=== PATIENT | male | born 1960 | race Caucasian/White ===

== ENCOUNTER → 2017-02-17 | Outpatient (CLI) | payer SELFPAY | PROVIDERS: Visit Provider Nurse Practitioner Family | DX: R53.83 Other fatigue (principal); N52.9 Male erectile dysfunction, unspecified; E55.9 Vitamin D deficiency, unspecified; Z12.5 Encounter for screening for malignant neoplasm of prostate | CPT/HCPCS: 80053; 80061; 82306; 83036; 84439; 84443; 85025; G0103 ==

== ENCOUNTER → 2017-07-22 14:35 | Outpatient (REF) | payer SELFPAY ==
[2017-07-22 20:07] LABS: Alanine Aminotransferase 35 U/L (12-78); Albumin Level 4.2 gm/dL (3.4-5.0); Albumin/Globulin Ratio 1.2 (1.1-1.8); Alkaline Phosphatase 99 U/L (46-116); Anion Gap 14.7 mEq/L (5-15); Aspartate Amino Transferase 22 U/L (15-37); Bilirubin,Total 0.6 mg/dL (0.2-1.0); Blood Urea Nitrogen 12 mg/dL (7-18); Carbon Dioxide 29 mmol/L (21.0-32.0); Chloride 106 mmol/L (98-107); Chol/HDL Ratio 5.6 (1-3.5); Cholesterol 225 mg/dL (140-200); Creatinine,Serum 1.04 mg/dL (0.70-1.30); Estimated Glomerular Filt Rate 73 ml/min (>60); GFR (African American) 88 ML/MIN (>60); Globulin 3.4 gm/dl (1.3-3.2); Glucose 86 mg/dL (74-106); HDL Cholesterol 40 mg/dL (27-67); LDL Cholesterol 160 mg/dL (0-130); Potassium 4.7 mmoL/L (3.5-5.1); Sodium 145 mmol/L (136-145); Total Protein,Serum 7.6 gm/dL (6.4-8.2); Triglycerides 127 mg/dL (30-200); VLDL Cholesterol 25 mg/dL (0-40)
[2017-07-25 12:49] LABS: Vitamin D 25 Hydroxy 26.5 ng/mL (30.0-100.0)
== END ==
LOC: LAB 14:35
PROVIDERS: Visit Provider Nurse Practitioner Family
DX: R53.83 Other fatigue (principal)
CPT/HCPCS: 80053; 80061; 82652

== ENCOUNTER → 2019-10-19 17:38 | Outpatient (CLI) | payer MEDICAID, SELFPAY ==
[2019-10-19 18:02] LABS: Basophils % 0.4 % (0.1-2.0); Eosinophils # 0.3 K/mm3 (0.0-0.4); Eosinophils % 3.3 % (0.1-12.0); Hemoglobin 16.1 g/dL (14.1-18.0); Lymphocytes # 1.8 K/mm3 (0.7-4.5); Lymphocytes % 22.2 % (10-50); Mean Corpuscular HGB Conc 34.2 g/dL (31.8-35.4); Mean Corpuscular Hemoglobin 32.6 pg (27.0-31.2); Mean Corpuscular Volume 95.3 fl (80-94); Monocytes # 0.5 K/mm3 (0.1-1.0); Monocytes % 6.3 % (1.7-9.3); Neutrophils # 5.3 K/mm3 (1.8-7.8); Neutrophils % 67.7 % (37.0-80.0); Platelet Count 283 K/mm3 (142-424); Red Blood Count 4.93 M/mm3 (4.60-6.20); White Blood Count 7.9 K/mm3 (4.8-10.8)
[2019-10-19 18:07] LABS: Chloride 104 mmol/L (98-107)
[2019-10-19 18:08] LABS: Potassium 4.5 mmoL/L (3.5-5.1); Sodium 141 mmol/L (136-145)
[2019-10-19 18:10] LABS: Alanine Aminotransferase 18 U/L (12-78); Albumin Level 4.4 g/dl (3.5-5.0); Albumin/Globulin Ratio 1.5 (1.1-1.8); Alkaline Phosphatase 89 U/L (38-126); Anion Gap 15.5 mEq/L (5-15); Aspartate Amino Transferase 26 U/L (17-59); Bilirubin,Total 0.6 mg/dl (0.2-1.3); Blood Urea Nitrogen 18 mg/dl (9-20); Carbon Dioxide 26 mmol/L (22.0-30.0); Cholesterol 227 mg/dl (140-200); Estimated Glomerular Filt Rate 76 ml/min (>60); GFR (African American) 92 ML/MIN (>60); Total Protein,Serum 7.4 g/dl (6.3-8.2); Triglycerides 120 mg/dl (30-150); VLDL Cholesterol 24 mg/dL (0-40)
[2019-10-19 18:11] LABS: Calcium 9.5 mg/dl (8.4-10.2); Glucose 93 mg/dl (74-100); HDL Cholesterol 45 mg/dl (40-60)
[2019-10-19 18:23] LABS: Direct LDL Cholesterol 163.17 mg/dL (100-129)
[2019-10-19 19:40] LABS: Prostate Specific Ag Screen 1.5 ng/ml (0.0-4.0)
== END ==
PROVIDERS: Visit Provider Family Medicine
DX: Z12.5 Encounter for screening for malignant neoplasm of prostate (principal); I10 Essential (primary) hypertension
CPT/HCPCS: 80053; 80061; 85025; G0103

== ENCOUNTER → 2019-10-22 10:12 | Outpatient (CLI) | payer MEDICAID, SELFPAY ==
--- NOTE | 2019-10-22 10:17 | XR_ITS ---
PROCEDURE: XR ELBOW RT MIN 3V CLINICAL INDICATION: fall Posttraumatic pain COMPARISON: No exams were available for comparison FINDINGS: No fracture or dislocation. No lytic or blastic change. There is normal mineralization. Bony hypertrophy is present at the medial epicondyle and at the medial aspect of the proximal ulna medial to the coracoid process. There is also mild bony hypertrophy of the radial head and at the olecranon process. Other findings:None. IMPRESSION: Degenerative changes with bony spurring otherwise negative Dictated by: Fausto Cui MD 10/22/2019 14:58 Electronically signed by Fausto Cui MD in [place] 10/22/2019 14:58
--- NOTE | 2019-10-22 10:17 | XR_ITS ---
PROCEDURE: XR HIP LT 2-3V W/PELVIS CLINICAL INDICATION: fall Posttraumatic pain COMPARISON: No exams were available for comparison FINDINGS: No fracture or dislocation. No lytic or blastic change. There is normal mineralization. There mild osteoarthritic changes of the hips Other findings:None. IMPRESSION: No acute findings. Dictated by: Fausto Cui MD 10/22/2019 14:59 Electronically signed by Fausto Cui MD in [place] 10/22/2019 14:59
--- NOTE | 2019-10-22 10:17 | XR_ITS ---
PROCEDURE: XR FOOT RT MIN 3V CLINICAL INDICATION: fall Pain COMPARISON: No exams were available for comparison FINDINGS: No fracture or dislocation. No lytic or blastic change. There is normal mineralization. The joint spaces are well-preserved. No significant degenerative/arthritic changes. No erosive changes evident. Other findings:None. IMPRESSION: No acute findings. Dictated by: Fausto Cui MD 10/22/2019 14:58 Electronically signed by Fausto Cui MD in [place] 10/22/2019 14:58
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
== END ==
PROVIDERS: PCP Family Medicine; Visit Provider Family Medicine
DX: M25.552 Pain in left hip (principal); M79.671 Pain in right foot; M25.521 Pain in right elbow; M25.571 Pain in right ankle and joints of right foot; W19.XXXA Unspecified fall, initial encounter
CPT/HCPCS: 73080; 73502; 73610; 73630

== ENCOUNTER → 2019-11-09 12:13 | Outpatient (CLI) | payer MEDICAID, SELFPAY ==
--- NOTE | 2019-11-09 12:17 | XR_ITS ---
PROCEDURE: XR ANKLE WT BEARING LT MIN 3V CLINICAL INDICATION: Ankle pain COMPARISON: CR XR ANKLE RT MIN 3V from 10/22/2019 FINDINGS: There is no significant soft tissue swelling. The medial and lateral malleolus appear intact. There is minimal spurring of the tip of the medial malleolus and there is adjacent spurring of the medial border of the talus resulting mild focal narrowing of the ankle mortise. The mortise otherwise is normal. There is a small spur of the calcaneus at the insertion of Achilles tendon and even smaller spur at the insertion of the plantar tendon. IMPRESSION: No acute findings. Dictated Dr. Francisco Taylor MD 11/09/2019 12:54 Dr. Francisco Malone MD in [place] 11/09/2019 12:54
== END ==
PROVIDERS: PCP Family Medicine; Visit Provider Nurse Practitioner Family
DX: M25.572 Pain in left ankle and joints of left foot (principal); W19.XXXA Unspecified fall, initial encounter
CPT/HCPCS: 73610

== ENCOUNTER 2019-11-22 11:41 | Day surgery (SDC) | payer MEDICAID, SELFPAY ==
[2019-11-22 11:55] VITALS: BMI 31.6
[2019-11-22 12:03] VITALS: BP 132/93; PULSE 91; RESP 18; TEMP 36.6; O2SAT 97; BMI 31.6
[2019-11-22 13:11] LABS: Coronavirus 19 IgG Antibody Negative (Negative); Coronavirus 19 IgM Antibody Negative (Negative)
[2019-11-22 13:23] VITALS: O2SAT 97
--- NOTE | 2019-11-22 13:30 | HMH.ANESCL ---
[facility] Anesthesia Checklist - Patient Identification Patient Identification: Arm Band - Structural Data Admitted From: Home Planned Operative Procedure/s: colonoscopy Consent for Planned Operative Procedure(s) Verified: Yes Verified Documents: Surgical Consent, History and Physical - NPO Status Verified Time NPO: 00:00 - Additional verifications Anesthesia Reactions: No - Airway Assessment C-Spine Mobility Assessed: Yes (mp2) TMJ Mobility Assessed: Yes Dentition: Poor Dentition - Neurological Assessment Level of Consciousness: Awake, Alert - Anesthesia Plan Anesthesia Risk discussed: Yes Anesthesia Plan: Verified ASA Class: II Anesthesia Type: MAC [facility] History I have reviewed the patient's past medical history: Yes Medical History: Reports:: Hyperlipidemia, Hypertension Denies:: Cancer, Diabetes Mellitus Type 1, Diabetes Mellitus Type 2, Internal Pacemaker, MRSA, Seizures *Have you ever received a pneumonia vaccine?: No *Have you received a flu vaccine this season?: No Other Medical History: Reports: Other Anesthesia experience/problems:: nac Laterality Cases: Left: Arthroscopy Knee Other Surgeries: Yes: Colonoscopy, Other. No: Pacemaker Amputation: No Fractures: No - *Social History Last grade of school completed: High school graduate Smoking Status: Former smoker Tobacco Type: cigarettes #Yrs smoked (if former smoker): 25 Alcohol Intake: never Alcohol Intake Frequency:: holidays/special occasions only Substance Use Type: marijuana *Occupational Status:: employed Housing: house Household Members: spouse *Travel in the last 8 weeks: None Family Hx:: Heart Attack
--- NOTE | 2019-11-22 13:48 | P.PCN_ITS ---
[facility] Procedure Note Procedure Note:: Colonoscopy Procedure Report: Colonoscopy with cold snare polypectomy and Endo Clip placement Endoscopist: Zac De La Cruz II, MD Referring physician: Saulo Dowling MD Date of Procedure: November 22, 2019 Equipment: Olympus 180 variable stiffness pediatric colonoscope Sedation: MAC sedation Indication: Mr. Rodriguez is a 59-year-old gentleman who is here for follow-up screening/surveillance colonoscopy. He does state that his last colonoscopy was approximately 6 years ago and he has had colon polyps removed previously. He does have occasional spotting of blood from internal hemorrhoids that may occur once monthly and is infrequent. He reports no abdominal pain, weight loss, change in his bowel habits or family history of colon cancer. Procedure: Prior to the procedure, a history and physical exam was performed, and patient's medications and allergies were reviewed. The risks, benefits and alternatives of the sedation and procedure were discussed with the patient. All questions were answered and informed consent was obtained. The patient was brought to the procedure room. Patient identification and proposed procedure were verified by the physician and the nurse. The patient was placed in a left lateral decubitus position and the scope was passed under direct vision. Throughout the procedure, the patient's blood pressure, pulse, and oxygen saturations were monitored continuously. The colonoscopy was accomplished without difficulty. The patient tolerated the procedure well. Findings: On digital rectal examination there was normal rectal tone. There were no external hemorrhoids. The colonoscope was introduced through the anal canal to the rectum and advanced to the cecum. The ileocecal valve and appendiceal orifice were identified. The scope was advanced a short distance into the ileum which appeared grossly normal. The scope was then withdrawn into the colon. The right colon was fairly poorly prepped but there was a larger 11?12 mm polyp in the cecum that was removed via cold snare polypectomy. There was some heme at the polypectomy site so a single Endo Clip was placed with excellent hemostasis. There was a diminutive 3 mm rectal polyp removed via cold snare polypectomy. There were scattered diverticuli throughout the colon but more predominantly in the descending and sigmoid colon (LEFT colon). The rectum itself was normal. Upon retroflexion within the rectum there were grade 2 internal hemorrhoids. The preparation was fair throughout with [place] Preparation Score of 6?7 out of 9. The cecal time was 12 minutes. Impression: 1. Cecal colon polyp (11-12 mm) 2. Diminutive rectal polyp 3. Pandiverticulosis 4. Grade 2 internal hemorrhoids Plan: I will follow-up the polyp histology. Based upon the size of this adenomatous polyp and the preparation, I would recommend repeat screening/surveillance colonoscopy again in 2 years. I would encourage bulk fiber supplementation on a long-term daily maintenance basis.
[2019-11-22 13:50] VITALS: BP 94/62; PULSE 85; RESP 18; TEMP 36.6; O2SAT 94
[2019-11-22 14:00] VITALS: BP 80/58; PULSE 76; RESP 18; O2SAT 95
[2019-11-22 14:10] VITALS: BP 108/55; PULSE 77; RESP 18; O2SAT 94
[2019-11-22 14:36] VITALS: BP 129/81; PULSE 79; RESP 18; O2SAT 99
== END 2019-11-22 14:36 | disposition home or self-care (01) ==
PROVIDERS: Visit Provider Internal Medicine Gastroenterology
PROC: 0DJD8ZZ Inspection of Lower Intestinal Tract, Via Natural or Artificial Opening Endoscopic (ICD-10-PCS; CPT 45378; principal; 2019-11-22 13:00)
DX: Z12.11 Encounter for screening for malignant neoplasm of colon (principal); K63.5 Polyp of colon; K62.1 Rectal polyp; K57.30 Diverticulosis of large intestine without perforation or abscess without bleeding; K64.1 Second degree hemorrhoids; I10 Essential (primary) hypertension; E78.5 Hyperlipidemia, unspecified; F12.90 Cannabis use, unspecified, uncomplicated; Z87.39 Personal history of other diseases of the musculoskeletal system and connective tissue; Z87.891 Personal history of nicotine dependence; Z79.899 Other long term (current) drug therapy
CPT/HCPCS: 45385; 86328

== ENCOUNTER → 2019-12-03 08:03 | Outpatient (CLI) | payer MEDICAID, SELFPAY ==
--- NOTE | 2019-12-03 08:13 | MR_ITS ---
PROCEDURE: MR ANKLE RT WO/W CON CLINICAL INDICATION: ankle pain twisted ankle and fx [id number] ago. entire ankle pain and pain around calcaneous. 22ml prohance given. 17ml lot:[id number] exp: mar 2022 5ml lot:[id number] exp: mar 2021 prior x-ray 10-22-19 bun:15 cre:1.10 gfr:68 COMPARISON: CR XR ANKLE RT MIN 3V from 10/22/2019 MR MR ANKLE LT WO/W CON from 12/03/2019 TECHNIQUE: Routine multiplanar multi echo sequences are performed without with gadolinium enhancement. FINDINGS: There is an area of decreased T1 and increased T2 signal involving the distal aspect of the tibia laterally and anteriorly at the articular surface. This region measures approximately 13 mm and is in the subarticular region of the distal tibia. The there is also increased T2 signal involving the posterior aspect of the calcaneus. The tibial fibular syndesmosis as well as the anterior posterior tibiofibular ligaments appear intact. The PT FL appears intact. The ATFL is discontinuous with increased T2 signal at the ATFL consistent with tear of the ATFL. Fibers of the deltoid ligament are sparse and could be related to partial tear or sprain. The Achilles tendon is intact. No tendinous abnormalities are evident. There is some increase in T2 signal along the neck of the talus medially with some soft tissue thickening at this region.. There is some mild soft tissue swelling with edema noted along the anterior and posterior aspect of the ankle joint and at the posterior talocalcaneal region. There is some subchondral increase in T2 signal along the posterior aspect of the talus. Previous radiograph suggested a avulsion fracture of the fibula and medial malleolar region. These are not well demonstrated on the MRI. There is increased T2 signal involving the posterior aspect of the calcaneus superiorly and at the Achilles/calcaneal junction. IMPRESSION: 1. Findings compatible with tear of the ATFL. 2. Sparsely of the fibers of the deltoid ligament with increased T2 signal suggesting partial tear or sprain. 3. Focus of abnormal bone marrow signal intensity of the anterior aspect of the tibia laterally which may be related to an area of osteochondrosis. Follow-up may confirm stability. 4. Increased T2 signal in the posterior aspect of the calcaneus and at the Achilles insertion suggesting underlying bone marrow edema. Possible insertional tendinitis 5. Increased T2 signal of the neck of the talus medially and along the posterior aspect of the talus with soft tissue thickening at this area which may be inflammatory or posttraumatic.. There is a small effusion at the talonavicular joint. Dictated by: Fausto Cui MD 12/09/2019 09:07 Fausto Cui MD in [place] 12/09/2019 09:07
--- NOTE | 2019-12-03 08:13 | MR_ITS ---
PROCEDURE: MR ANKLE LT WO/W CON CLINICAL INDICATION: ankle pain, ATFL sprain ankle pain in joint x2wks. twisted ankle. medial sided ankle pain. prior x-ray 11-09-19 COMPARISON: CR XR ANKLE WT BEARING LT MIN 3V from 11/09/2019 TECHNIQUE: Routine multiplanar multi echo sequences are performed without and with gadolinium enhancement. FINDINGS: The distal tibiofibular syndesmosis is intact. The anterior and posterior tibiofibular ligaments appear intact. The PT FL has an unremarkable appearance. The ATFL is thickened and discontinuous with increased T2 signal consistent with tear of the ATFL. Soft tissue swelling is present about the ankle joint with increase in T2 signal. The deltoid ligament appears intact. The ligaments and tendons about the ankle joint appear intact. There is increased T2 signal of the posterior aspect of the calcaneus and at the Achilles insertion. May be seen with tendinitis/enthesophytis. Increased T2 signal is present at the medial malleolar region. There is a small ankle joint effusion with fluid present both anterior and posterior at the ankle joint. There is also a small amount fluid in the subtalar region centrally and anteriorly. IMPRESSION: 1. Findings compatible with tear of the ATFL. 2. Ankle joint effusion with soft tissue swelling about the ankle. 3. Possible Achilles tendinitis/enthesophytis. Dictated by: Fausto Cui MD 12/09/2019 09:24 Fausto Cui MD in [place] 12/09/2019 09:24
[2019-12-03 08:26] LABS: Blood Urea Nitrogen 15 mg/dl (9-20); Estimated Glomerular Filt Rate 68 ml/min (>60); GFR (African American) 82 ML/MIN (>60)
--- NOTE | 2019-12-03 08:42 | XR_ITS ---
PROCEDURE: XR ORBIT BILATERAL MIN 4V CLINICAL INDICATION: RULE OUT METAL FOREIGN BODY FOR MRI COMPARISON: No exams were available for comparison TECHNIQUE: AP views are obtained of the orbits with the patient looking up and down. FINDINGS: No radio opaque foreign bodies evident. IMPRESSION: No radio opaque orbital foreign body identified. Dictated by: Fausto Cui MD 12/03/2019 14:55 Fausto Cui MD in [place] 12/03/2019 14:55
== END ==
PROVIDERS: Visit Provider Podiatrist
DX: M25.571 Pain in right ankle and joints of right foot (principal); S82.831A Other fracture of upper and lower end of right fibula, initial encounter for closed fracture; S93.401A Sprain of unspecified ligament of right ankle, initial encounter; S99.911A Unspecified injury of right ankle, initial encounter; M25.572 Pain in left ankle and joints of left foot; S93.402A Sprain of unspecified ligament of left ankle, initial encounter
CPT/HCPCS: 36415; 70200; 73723; 82565; 84520; A9576

== ENCOUNTER 2019-12-21 13:56 | Outpatient (RCR) | payer MEDICAID, SELFPAY ==
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
== END 2019-12-21 18:00 | disposition home or self-care (01) ==
LOC: PT.CARL 13:56
PROVIDERS: Visit Provider Podiatrist
DX: S93.402A Sprain of unspecified ligament of left ankle, initial encounter (principal)
CPT/HCPCS: 97163

== ENCOUNTER → 2021-10-30 16:01 | Outpatient (CLI) | payer OTHER, SELFPAY ==
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
== END ==
PROVIDERS: PCP Emergency Medicine; Visit Provider Emergency Medicine
DX: M54.2 Cervicalgia (principal); M54.50 Low back pain, unspecified; V89.2XXA Person injured in unspecified motor-vehicle accident, traffic, initial encounter
CPT/HCPCS: 72141; 72148; 76376

== ENCOUNTER → 2021-11-09 15:14 | Outpatient (CLI) | payer SELFPAY ==
[2021-11-09 17:54] LABS: Amphetamine/Metha Screen,Urine Negative ng/ml (<1000)
[2021-11-09 17:55] LABS: Barbiturates Screen,Urine Negative ng/ml (<200); Benzodiazepines Screen,Urine Negative ng/ml (<200)
[2021-11-09 17:56] LABS: Cannabinoid Screen,Urine Positive ng/ml (<50)
[2021-11-09 17:57] LABS: Cocaine Screen,Urine Negative ng/ml (<300)
[2021-11-09 17:58] LABS: Methadone Screen,Urine Negative ng/ml (<300)
[2021-11-09 17:59] LABS: Opiate Screen,Urine Negative ng/ml (<300); Phencyclidine Screen,Urine Negative ng/ml (<25)
== END ==
PROVIDERS: PCP Emergency Medicine; Visit Provider Emergency Medicine
DX: R52 Pain, unspecified (principal)
CPT/HCPCS: 80305

== ENCOUNTER → 2021-11-22 13:01 | Outpatient (POV) | payer OTHER, SELFPAY ==
--- NOTE | 2021-11-22 13:16 | EXP.PAIN.OV ---
HPI Data of Consult Patient: new to practice Consult date: 11/22/21 Requesting Physician: Rylee Lei APRN Primary Care Provider: Michael Lopez MD Consult Narrative History of present illness: Mr. Rodriguez is a 61 year old male who presents today as a new patient. 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 caffeine: Yes Review of Systems Review of Systems Review of systems:: pertinent systems reviewed and negative unless documented below Review of systems (narrative): Review of Systems: General: No recent weight changes, no fever, no sleep disturbances Respiratory: No cough, no shortness of air, no recurring pulmonary infections Cardiovascular/peripheral vascular: No chest pain, no palpitations, no edema, no shortness of breath Gastrointestinal: No new onset incontinence, normal bowel movements reported Genitourinary: No new onset incontinence Musculoskeletal: Neck pain, low back pain Psychiatric: [Normal mood/affect] Neurological: [Denies weakness in extremities], [denies balance issues] Meds Home Medications and Allergies Home Medications Medication Instructions Recorded Confirmed Type gabapentin 100 mg capsule 100 mg PO BID #60 caps 11/09/21 11/09/21 Rx hydrocodone 7.5 mg-acetaminophen 1 tab PO TID #90 tabs 11/09/21 11/09/21 Rx 325 mg tablet New Prescriptions to Start Prescriptions: Allergies Allergy/AdvReac Type Severity Reaction Status Date / Time No Known Allergies Allergy Verified 11/09/21 15:22 Objective Narrative: Physical Exam: General: Alert and oriented x3, no acute distress, pleasant and cooperative Lungs: Respirations even and unlabored, symmetrical chest expansion Eyes: PERRL Musculoskeletal: Flexion and extension of cervical, lumbar [spine] somewhat guarded secondary to pain, [antalgic gait noted] Neurological: Speech clear, no gross sensory deficit Additional findings Additional findings: MRI lumbar spine: 10/31/2021 Findings: T12-L1: At T12-L1 and L1-L2: Less than 2 mm disc bulge L1-L2: No significant disc disease no significant spinal canal stenosis no neural foraminal stenosis L2-3: No significant disc disease. No significant canal stenosis no neuroforaminal stenosis. L3-4: 2.5 to 3 mm disc bulge. Mild ligamentum flavum and facet hypertrophy. Mild bilateral lateral recess and mild to moderate right greater than left neuroforaminal stenosis L4-L5: 2 mm broad-based and lateral disc bulge. Small annular fissure. Mild ligamentum flavum and mild?moderate facet hypertrophy L5-S1: See bone/joints findings soft tissues unremarkable Impression: At L5-S1 approximately 4 mm anterolisthesis of L5 with respect S1 accompanying buildup of disc material on the shelf created by the anterior listhesis. Demonstration annular fissure posterior lateral margin at the disc. Moderately severe to severe left mild to moderate right neuroforaminal stenosis. Left L5 nerve impingement suggested. At L4-L5 2 mm disc bulge with small annular fissure. At L3-4 2.5 to 3 mm disc bulge mild bilateral lateral recess stenosis mild to moderate right greater than left neuroforaminal stenosis Cervical MRI 10/31/2021 Findings: C2-C3: Less than 2 mm central disc bulge versus osteophyte ridge C3-C4: 2 to 3 mm broad-based right greater than left osteophyte ridge and disc bulge. Moderate to moderately severe right greater than left neuroforaminal stenosis. C4-5: No significant disc disease. No significant spinal stenosis C5-C6: At 2.5 to 3 mm broad-based and lateral predominant osteophytic ridge with underlying disc bulge. Mild cord effacement. Spinal canal measures 7.5 mm. Mild to moderate lef
== END ==
PROVIDERS: PCP Emergency Medicine; Visit Provider Nurse Practitioner Family
DX: M50.30 Other cervical disc degeneration, unspecified cervical region (principal); M51.36 Other intervertebral disc degeneration, lumbar region; M47.816 Spondylosis without myelopathy or radiculopathy, lumbar region; M48.02 Spinal stenosis, cervical region; M24.28 Disorder of ligament, vertebrae
CPT/HCPCS: 99202; G0463

== ENCOUNTER → 2021-12-06 10:04 | Outpatient (POV) | payer BC, SELFPAY ==
[2021-12-06 10:27] VITALS: BP 132/98; PULSE 101; RESP 19; TEMP 37.1; O2SAT 96; BMI 30.2
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
== END ==
PROVIDERS: PCP Emergency Medicine; Visit Provider Nurse Practitioner Family
DX: M50.10 Cervical disc disorder with radiculopathy, unspecified cervical region (principal); M51.16 Intervertebral disc disorders with radiculopathy, lumbar region; M25.552 Pain in left hip; M79.18 Myalgia, other site; M79.605 Pain in left leg
CPT/HCPCS: 99202; G0463

== ENCOUNTER → 2021-12-10 07:00 | Outpatient (CLI) | payer BC, SELFPAY ==
[2021-12-10 22:11] LABS: Phencyclidine Screen,Urine Negative ng/ml (<25)
[2021-12-10 22:22] LABS: Amphetamine/Metha Screen,Urine Negative ng/ml (<1000)
[2021-12-10 22:23] LABS: Cannabinoid Screen,Urine Positive ng/ml (<50)
[2021-12-10 22:24] LABS: Barbiturates Screen,Urine Negative ng/ml (<200); Benzodiazepines Screen,Urine Negative ng/ml (<200)
[2021-12-10 22:25] LABS: Opiate Screen,Urine Positive ng/ml (<300)
[2021-12-10 22:26] LABS: Cocaine Screen,Urine Negative ng/ml (<300)
[2021-12-10 22:27] LABS: Methadone Screen,Urine Negative ng/ml (<300)
== END ==
PROVIDERS: PCP Emergency Medicine; Visit Provider Emergency Medicine
DX: Z79.899 Other long term (current) drug therapy (principal)
CPT/HCPCS: 80305

== ENCOUNTER → 2022-01-07 10:56 | Outpatient (POV) | payer BC, SELFPAY ==
[2022-01-07 11:18] VITALS: BP 130/92; PULSE 97; RESP 18; TEMP 36.7; O2SAT 96; BMI 29.5
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
== END | disposition home or self-care (01) ==
PROVIDERS: Visit Provider Student in an Organized Health Care Education/Training Program
DX: M51.16 Intervertebral disc disorders with radiculopathy, lumbar region (principal); M50.10 Cervical disc disorder with radiculopathy, unspecified cervical region; M46.1 Sacroiliitis, not elsewhere classified
CPT/HCPCS: 99212; G0463

== ENCOUNTER → 2022-01-15 11:14 | Day surgery (SDC) | payer BC, SELFPAY ==
[2022-01-15 11:20] VITALS: BP 173/90; PULSE 62; RESP 16; TEMP 37; O2SAT 95; BMI 30.2
[2022-01-15 11:28] VITALS: BP 155/87; PULSE 72; RESP 18; O2SAT 98
[2022-01-15 11:29] VITALS: BP 155/87; PULSE 72; RESP 18; O2SAT 98
--- NOTE | 2022-01-15 11:49 | EXP.PAIN.PRO ---
Procedure Date: 01/15/22 Time: 11:30 Anesthesiologist:: Asif Downs CRNA Complications:: None Pre-procedure Diagnosis:: Left sacroiliitis. Post-procedure Diagnosis:: Same. Indications for Procedure:: Very pleasant 61-year-old male that comes our clinic today for left sacroiliac joint injection. He has had this in the past with significant improvement terms of his left posterior hip pain. Patient describes the pain as constant, dull, sharp, stabbing at times. He rates his pain 8/10 Procedure Details:: Procedure: Left sacroiliac injection under fluoroscopy Informed consent was obtained and the risk and benefits of the procedure were explained to the patient.~ The patient was taken to the procedure room and noninvasive monitors were placed including noninvasive blood pressure cuff and pulse oximeter.~ The patient was placed prone on the procedure table.~ The~ left hip was cleansed using Betadine as a cleansing solution.~ C-arm fluorosocpy was used to view the left SI joint.~ The skin and subcutaneous tissues were anesthetized using Lidocaine 1.5% and a 25-gauge needle.~ After this, a 22-gauge spinal needle was inserted under fluoroscopic guidance into the inferior aspect of the left SI joint.~ Omnipaque dye was injected and a good spread was seen throughout the joint.~ After this, approximately 5 mL of bupivacaine 0.25% and Depo-Medrol 40 mg was incrementally injected into the sacroiliac joint.~ The patient tolerated the procedure well with no complications.~ The patient was observed in the Pain Clinic for a period of 30-45 minutes, then discharged home neurologically intact.~ Plan and Disposition:: Patient was discharged without incident.
== END | disposition home or self-care (01) ==
PROVIDERS: PCP Emergency Medicine; Visit Provider Nurse Anesthetist, Certified Registered
DX: M46.1 Sacroiliitis, not elsewhere classified (principal); M51.16 Intervertebral disc disorders with radiculopathy, lumbar region; M50.10 Cervical disc disorder with radiculopathy, unspecified cervical region
CPT/HCPCS: 27096; G0260; J1040

== ENCOUNTER 2022-01-23 17:30 | Outpatient (RCR) | payer OTHER, BC, SELFPAY ==
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
--- NOTE | 2022-01-04 11:00 | HMH.RHREAS ---
Rehab Reassessment Rehab OP Re-assessment Start: 12/04/21 13:29 Freq: Status: Active Protocol: Document 01/04/22 10:57 MIKE (Rec: 01/04/22 11:00 MIKE [id number]) E-signed By Matheus Navarro, PT Rehab Re-assessment Subjective Subjective Pt reports he continues to have pain in the low back, but his neck is much improved. He feels the back is by far his biggest concern. Objective Objective Notes Cervical AROM(in deg): FLEX= 0 -50, EXT= 0-40, R SB= 0-30, L SB= 0-30, R ROT= 0-55, L ROT= 0-55. Lumbar AROM( in deg): FLEX= 0- 65, EXT= 0-15, R SB= 0-10, L SB= 0-12. PAIN: currently 2/10 in neck 3 /10 in low back. Assessment Progress Assessment Progressing as Expected Assessment Notes Continues to show some improvements in AROM, but no as dramatic since last reassessment. He has much less cervical pain, but L side lumbar pain is not responding as quickly. Continues to follow HEP well. Patient goals met ST,2,3,4 Goals Not Met LT,2,3,4,5 Revised Goals none Plan Plan Continue per initial POC. Frequency of Therapy 1-2 x/wk Duration of therapy 4 wks Time and Billing Re-Eval Time 16 Re-Eval Billing Units 1 PHYSICIAN CERTIFICATION: I certify the specified therapy services for Aimee Rodriguez are required, authorized, and reviewed every 30 days.
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
== END 2022-03-19 14:22 | disposition home or self-care (01) ==
LOC: PT 17:30
PROVIDERS: Visit Provider Emergency Medicine
DX: M54.2 Cervicalgia (principal); M54.50 Low back pain, unspecified; V89.2XXA Person injured in unspecified motor-vehicle accident, traffic, initial encounter
CPT/HCPCS: 20560; 97010; 97012; 97014; 97033; 97110; 97140; 97163; 97164; G0283

== ENCOUNTER → 2022-01-28 09:40 | Outpatient (POV) | payer BC, SELFPAY ==
[2022-01-28 09:47] VITALS: BP 123/97; PULSE 92; RESP 18; TEMP 36.6; O2SAT 97; BMI 29.5
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
== END | disposition home or self-care (01) ==
PROVIDERS: PCP Emergency Medicine; Visit Provider Nurse Practitioner Family
DX: M54.50 Low back pain, unspecified (principal); M54.2 Cervicalgia; M46.1 Sacroiliitis, not elsewhere classified; M79.629 Pain in unspecified upper arm
CPT/HCPCS: 99212; G0463

== ENCOUNTER 2022-02-01 15:13 | Day surgery (SDC) | payer BC, SELFPAY ==
[2022-02-01 15:46] VITALS: BP 125/85; PULSE 77; RESP 20; TEMP 36.6; O2SAT 94; BMI 29.5
[2022-02-01 16:18] VITALS: BP 130/95; RESP 18
[2022-02-01 16:20] VITALS: BP 140/87; PULSE 63; RESP 20; O2SAT 94
--- NOTE | 2022-02-01 16:29 | EXP.PAIN.PRO ---
Procedure Date: 02/01/22 Time: 16:29 Anesthesiologist:: Ivan De La Torre MD Complications:: None Pre-procedure Diagnosis:: Degenerative osteoarthritis left hip with left hip pain Post-procedure Diagnosis:: Same Indications for Procedure:: This patient is a pleasant 61-year-old white male who we are treating for degenerative osteoarthritis of left hip and left hip pain. He is status post left SI joint injection. He got great relief from this injection. We will do a left hip intra-articular injection for his residual pain in the left hip. Procedure Details:: Left hip intra-articular injection Informed consent was obtained the risk and benefits of the procedure were explained to the patient. Patient was taken the procedure room. Left hip was prepped using ChloraPrep. The skin and subcutaneous tissues were anesthetized using lidocaine. A 22-gauge spinal needle was inserted into the left hip joint. Needle placement was confirmed with dye. After this we injected 5 mL bupivacaine 0.25% and Depo-Medrol 40 mg into the left hip joint. Patient tolerated procedure well with no complications Plan and Disposition:: Plan and disposition: We will follow-up with him in 2 weeks. Will reevaluate symptoms at that time.
== END 2022-02-01 16:20 | disposition home or self-care (01) ==
PROVIDERS: PCP Emergency Medicine; Visit Provider Anesthesiology
DX: M16.12 Unilateral primary osteoarthritis, left hip (principal)
CPT/HCPCS: 20610; J1040; Q9966

== ENCOUNTER → 2022-02-08 13:34 | Outpatient (CLI) | payer BC, SELFPAY ==
[2022-02-08 18:39] LABS: Amphetamine/Metha Screen,Urine Negative ng/ml (<1000)
[2022-02-08 18:40] LABS: Benzodiazepines Screen,Urine Negative ng/ml (<200)
[2022-02-08 18:41] LABS: Cannabinoid Screen,Urine Positive ng/ml (<50); Cocaine Screen,Urine Negative ng/ml (<300)
[2022-02-08 18:43] LABS: Methadone Screen,Urine Negative ng/ml (<300); Opiate Screen,Urine Positive ng/ml (<300)
[2022-02-08 18:44] LABS: Phencyclidine Screen,Urine Negative ng/ml (<25)
[2022-02-08 18:50] LABS: Barbiturates Screen,Urine Negative ng/ml (<200)
== END ==
PROVIDERS: PCP Emergency Medicine; Visit Provider Emergency Medicine
DX: Z76.0 Encounter for issue of repeat prescription (principal); Z79.899 Other long term (current) drug therapy
CPT/HCPCS: 80305

== ENCOUNTER → 2022-02-27 09:38 | Outpatient (POV) | payer BC, SELFPAY ==
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
[2022-02-27 10:15] VITALS: BP 145/83; PULSE 94; RESP 18; O2SAT 95; BMI 30.3
== END | disposition home or self-care (01) ==
PROVIDERS: PCP Emergency Medicine; Visit Provider Nurse Practitioner Family
DX: M46.1 Sacroiliitis, not elsewhere classified (principal); M54.2 Cervicalgia; M54.50 Low back pain, unspecified; M25.519 Pain in unspecified shoulder; M25.559 Pain in unspecified hip; Z79.899 Other long term (current) drug therapy
CPT/HCPCS: 99212; G0463

== ENCOUNTER → 2022-04-08 13:15 | Outpatient (CLI) | payer BC, SELFPAY ==
[2022-04-08 15:55] LABS: Basophils # 0.1 K/mm3 (0-0.2); Basophils % 1.3 % (0.1-2.0); Eosinophils # 0.3 K/mm3 (0.0-0.4); Eosinophils % 6.3 % (0.1-12.0); Hematocrit 42.8 % (42.0-52.0); Hemoglobin 13.8 g/dL (14.1-18.0); Lymphocytes # 1.4 K/mm3 (0.7-4.5); Lymphocytes % 26.7 % (10-50); Mean Corpuscular HGB Conc 32.2 g/dL (31.8-35.4); Mean Corpuscular Hemoglobin 31.4 pg (27.0-31.2); Mean Corpuscular Volume 97.6 fl (80-94); Mean Platelet Volume 8.7 fl (7.4-10.4); Monocytes # 0.5 K/mm3 (0.1-1.0); Monocytes % 8.9 % (1.7-9.3); Neutrophils # 2.9 K/mm3 (1.8-7.8); Neutrophils % 56.9 % (37.0-80.0); Platelet Count 264 K/mm3 (142-424); Red Blood Count 4.38 M/mm3 (4.60-6.20); Red Cell Distribution Width 13.5 % (11.5-17.5); White Blood Count 5.1 K/mm3 (4.8-10.8)
[2022-04-08 16:27] LABS: Alanine Aminotransferase 40 U/L (12-78); Albumin Level 4.3 g/dl (3.5-5.0); Albumin/Globulin Ratio 1.8 (1.1-1.8); Alkaline Phosphatase 69 U/L (38-126); Anion Gap 11.2 mEq/L (5-15); Aspartate Amino Transferase 35 U/L (17-59); Bilirubin,Total 0.4 mg/dl (0.2-1.3); Blood Urea Nitrogen 22 mg/dl (9-20); Calcium 8.5 mg/dl (8.4-10.2); Carbon Dioxide 28 mmol/L (22.0-30.0); Chloride 108 mmol/L (98-107); Cholesterol 198 mg/dl (140-200); Estimated Glomerular Filt Rate 61 ml/min (>60); GFR (African American) 74 ML/MIN (>60); Globulin 2.4 g/dL (1.3-3.2); Glucose 93 mg/dl (74-100); HDL Cholesterol 33 mg/dl (40-60); Potassium 4.2 mmoL/L (3.5-5.1); Sodium 143 mmol/L (136-145); Total Protein,Serum 6.7 g/dl (6.3-8.2); Triglycerides 191 mg/dl (30-150); VLDL Cholesterol 38 mg/dL (0-40)
[2022-04-08 16:39] LABS: Direct LDL Cholesterol 129.96 mg/dL (100-129)
[2022-04-08 16:44] LABS: 25-OH Vitamin D, Total 26.2 ng/mL (30-100)
[2022-04-08 16:45] LABS: Amphetamine/Metha Screen,Urine Negative ng/ml (<1000)
[2022-04-08 16:45] LABS: Free T4 (Free Thyroxine) 0.94 ng/dl (0.78-2.19)
[2022-04-08 16:46] LABS: Barbiturates Screen,Urine Negative ng/ml (<200); Benzodiazepines Screen,Urine Negative ng/ml (<200)
[2022-04-08 16:47] LABS: Cannabinoid Screen,Urine Positive ng/ml (<50)
[2022-04-08 16:48] LABS: Cocaine Screen,Urine Negative ng/ml (<300); Methadone Screen,Urine Negative ng/ml (<300)
[2022-04-08 16:49] LABS: Opiate Screen,Urine Positive ng/ml (<300)
[2022-04-08 16:50] LABS: Phencyclidine Screen,Urine Negative ng/ml (<25)
[2022-04-08 16:58] LABS: Thyroid Stimulating Hormone 1.46 uIU/mL (0.465-4.68)
== END ==
PROVIDERS: PCP Emergency Medicine; Visit Provider Emergency Medicine
DX: I10 Essential (primary) hypertension (principal); E78.5 Hyperlipidemia, unspecified; E55.9 Vitamin D deficiency, unspecified; M54.16 Radiculopathy, lumbar region; M50.30 Other cervical disc degeneration, unspecified cervical region; E66.3 Overweight; Z68.29 Body mass index [BMI] 29.0-29.9, adult; Z79.899 Other long term (current) drug therapy
CPT/HCPCS: 80053; 80061; 80305; 82306; 84439; 84443; 85025

== ENCOUNTER → 2022-06-07 11:00 | Outpatient (CLI) | payer BC, SELFPAY ==
[2022-06-07 19:24] LABS: Amphetamine/Metha Screen,Urine Negative ng/ml (<1000)
[2022-06-07 19:25] LABS: Barbiturates Screen,Urine Negative ng/ml (<200)
[2022-06-07 19:26] LABS: Benzodiazepines Screen,Urine Negative ng/ml (<200); Cannabinoid Screen,Urine Positive ng/ml (<50)
[2022-06-07 19:28] LABS: Cocaine Screen,Urine Negative ng/ml (<300); Methadone Screen,Urine Negative ng/ml (<300)
[2022-06-07 19:29] LABS: Opiate Screen,Urine Positive ng/ml (<300)
[2022-06-07 19:30] LABS: Phencyclidine Screen,Urine Negative ng/ml (<25)
== END ==
PROVIDERS: PCP Emergency Medicine; Visit Provider Emergency Medicine
DX: Z79.899 Other long term (current) drug therapy (principal)
CPT/HCPCS: 80305

== ENCOUNTER → 2022-08-06 23:12 | Outpatient (CLI) | payer BC, SELFPAY ==
[2022-08-06 20:12] LABS: Amphetamine/Metha Screen,Urine Negative ng/ml (<1000); Barbiturates Screen,Urine Negative ng/ml (<200)
[2022-08-06 20:14] LABS: Benzodiazepines Screen,Urine Negative ng/ml (<200)
[2022-08-06 20:15] LABS: Cannabinoid Screen,Urine Positive ng/ml (<50); Cocaine Screen,Urine Negative ng/ml (<300)
[2022-08-06 20:16] LABS: Methadone Screen,Urine Negative ng/ml (<300)
[2022-08-06 20:17] LABS: Opiate Screen,Urine Positive ng/ml (<300); Phencyclidine Screen,Urine Negative ng/ml (<25)
== END ==
PROVIDERS: PCP Emergency Medicine; Visit Provider Emergency Medicine
DX: Z79.899 Other long term (current) drug therapy (principal)
CPT/HCPCS: 80305

== ENCOUNTER 2023-08-06 10:40 | Outpatient (CLI) | payer BC, SELFPAY ==
[2023-08-06 19:06] LABS: Basophils # 0.1 K/mm3 (0-0.2); Basophils % 1.1 % (0.1-2.0); Eosinophils # 0.1 K/mm3 (0.0-0.4); Eosinophils % 1.8 % (0.1-12.0); Hematocrit 45.1 % (42.0-52.0); Lymphocytes # 1.9 K/mm3 (0.7-4.5); Lymphocytes % 25.8 % (10-50); Mean Corpuscular HGB Conc 33.2 g/dL (31.8-35.4); Mean Corpuscular Hemoglobin 32.6 pg (27.0-31.2); Mean Corpuscular Volume 98.2 fl (80-94); Mean Platelet Volume 9.4 fl (7.4-10.4); Monocytes # 0.4 K/mm3 (0.1-1.0); Monocytes % 5.1 % (1.7-9.3); Neutrophils # 4.9 K/mm3 (1.8-7.8); Neutrophils % 66.1 % (37.0-80.0); Platelet Count 429 K/mm3 (142-424); Red Blood Count 4.59 M/mm3 (4.60-6.20); Red Cell Distribution Width 13.8 % (11.5-17.5); White Blood Count 7.3 K/mm3 (4.8-10.8)
[2023-08-06 19:32] LABS: Alanine Aminotransferase 39 U/L (12-78); Albumin Level 4.7 g/dl (3.5-5.0); Albumin/Globulin Ratio 1.6 (1.1-1.8); Alkaline Phosphatase 85 U/L (38-126); Anion Gap 20.7 mEq/L (5-15); Aspartate Amino Transferase 39 U/L (17-59); Bilirubin,Total 0.8 mg/dl (0.2-1.3); Blood Urea Nitrogen 19 mg/dl (9-20); Calcium 10.1 mg/dl (8.4-10.2); Carbon Dioxide 24 mmol/L (22.0-30.0); Chloride 102 mmol/L (98-107); Cholesterol 269 mg/dl (140-200); Estimated Glomerular Filt Rate 51 ml/min (>60); GFR (African American) 62 ML/MIN (>60); Glucose 100 mg/dl (74-100); HDL Cholesterol 45 mg/dl (40-60); Potassium 4.7 mmoL/L (3.5-5.1); Sodium 142 mmol/L (136-145); Total Protein,Serum 7.7 g/dl (6.3-8.2); Triglycerides 219 mg/dl (30-150); VLDL Cholesterol 44 mg/dL (0-40)
[2023-08-06 19:43] LABS: Direct LDL Cholesterol 165.46 mg/dL (100-129)
[2023-08-06 19:51] LABS: 25-OH Vitamin D, Total 69.7 ng/mL (30-100)
[2023-08-06 20:07] LABS: Prostate Specific Ag Screen 1.1 ng/ml (0.0-4.0); Thyroid Stimulating Hormone 0.35 uIU/mL (0.465-4.68)
[2023-08-06 20:26] LABS: Vitamin B12 727 pg/mL (239-931)
[2023-08-06 20:42] LABS: Hemoglobin A1C 5.9 % (4.0-6.0)
== END 2023-08-06 23:59 | disposition home or self-care (01) ==
LOC: LAB.DROPOF 08-08 10:41
PROVIDERS: PCP Internal Medicine; Visit Provider Internal Medicine
DX: R53.83 Other fatigue (principal); I10 Essential (primary) hypertension; E78.5 Hyperlipidemia, unspecified; E03.9 Hypothyroidism, unspecified; E55.9 Vitamin D deficiency, unspecified; F12.90 Cannabis use, unspecified, uncomplicated; M51.36 Other intervertebral disc degeneration, lumbar region; M50.30 Other cervical disc degeneration, unspecified cervical region; R51.9 Headache, unspecified; Z12.5 Encounter for screening for malignant neoplasm of prostate
CPT/HCPCS: 80053; 80061; 82306; 82607; 83036; 84443; 85025; G0103

== ENCOUNTER 2023-09-10 10:58 | Outpatient (CLI) | payer BC, SELFPAY ==
[2023-09-10 19:39] LABS: Basophils # 0.1 K/mm3 (0-0.2); Eosinophils # 0.3 K/mm3 (0.0-0.4); Eosinophils % 4.3 % (0.1-12.0); Hemoglobin 13.4 g/dL (14.1-18.0); Lymphocytes # 2.3 K/mm3 (0.7-4.5); Mean Corpuscular HGB Conc 32.7 g/dL (31.8-35.4); Mean Corpuscular Hemoglobin 31.9 pg (27.0-31.2); Mean Corpuscular Volume 97.5 fl (80-94); Mean Platelet Volume 9.9 fl (7.4-10.4); Monocytes # 0.5 K/mm3 (0.1-1.0); Neutrophils # 3.9 K/mm3 (1.8-7.8); Neutrophils % 54.6 % (37.0-80.0); Platelet Count 277 K/mm3 (142-424); Red Blood Count 4.21 M/mm3 (4.60-6.20); Red Cell Distribution Width 13.3 % (11.5-17.5); White Blood Count 7.1 K/mm3 (4.8-10.8)
[2023-09-10 19:53] LABS: Chloride 107 mmol/L (98-107); Potassium 4.5 mmoL/L (3.5-5.1); Sodium 140 mmol/L (136-145)
[2023-09-10 19:56] LABS: Alanine Aminotransferase 23 U/L (12-78); Albumin Level 4.1 g/dl (3.5-5.0); Albumin/Globulin Ratio 1.4 (1.1-1.8); Alkaline Phosphatase 94 U/L (38-126); Anion Gap 12.5 mEq/L (5-15); Aspartate Amino Transferase 30 U/L (17-59); Bilirubin,Total 0.6 mg/dl (0.2-1.3); Blood Urea Nitrogen 11 mg/dl (9-20); Carbon Dioxide 25 mmol/L (22.0-30.0); Estimated Glomerular Filt Rate 67 ml/min (>60); GFR (African American) 81 ML/MIN (>60); Globulin 2.9 g/dL (1.3-3.2)
[2023-09-10 19:57] LABS: Calcium 9.8 mg/dl (8.4-10.2); Glucose 90 mg/dl (74-100)
[2023-09-10 20:27] LABS: Thyroid Stimulating Hormone 0.27 uIU/mL (0.465-4.68)
[2023-09-10 21:10] LABS: 25-OH Vitamin D, Total 44.1 ng/mL (30-100)
== END 2023-09-10 23:59 | disposition home or self-care (01) ==
LOC: LAB.DROPOF 09-11 10:59
PROVIDERS: PCP Internal Medicine; Visit Provider Internal Medicine
DX: E03.9 Hypothyroidism, unspecified (principal); E55.9 Vitamin D deficiency, unspecified; Z68.26 Body mass index [BMI] 26.0-26.9, adult
CPT/HCPCS: 80050; 80053; 82306; 84443; 85025

== ENCOUNTER 2023-09-25 14:28 | Outpatient (CLI) | payer MEDICARE, MEDICAID, SELFPAY ==
--- NOTE | 2023-09-25 14:37 | XR_ITS ---
FINAL REPORT CLINICAL HISTORY: hip pain COMPARISON: None FINDINGS: LEFT HIP: Two views of the left hip with an AP view of the pelvis demonstrate no acute fracture or dislocation. No evidence of bone destruction. There are moderate degenerative changes. The visualized bony structures are well aligned. No soft tissue abnormality is seen. IMPRESSION: Moderate degenerative changes without acute bony abnormality. Reviewed, Interpreted and Dictated by Zhang Barnes MD Transcribed by Manasa Pettit Authenticated and . [facility]
== END 2023-09-25 23:59 | disposition home or self-care (01) ==
PROVIDERS: PCP Internal Medicine; Visit Provider Internal Medicine
DX: M25.552 Pain in left hip (principal)
CPT/HCPCS: 73502

== ENCOUNTER 2023-10-08 19:10 | Outpatient (CLI) | payer MEDICARE, MEDICAID, SELFPAY ==
[2023-10-08 20:32] LABS: Chol/HDL Ratio 4.7 (1-3.5); Cholesterol 166 mg/dl (140-200); HDL Cholesterol 35 mg/dl (40-60); Triglycerides 146 mg/dl (30-150); VLDL Cholesterol 29 mg/dL (0-40)
[2023-10-08 20:44] LABS: Direct LDL Cholesterol 97.15 mg/dL (100-129)
[2023-10-08 20:49] LABS: T4 (Thyroxine) 8.5 ug/dl (5.53-11.0)
[2023-10-08 21:03] LABS: Thyroid Stimulating Hormone 0.75 uIU/mL (0.465-4.68)
[2023-10-10 08:39] LABS: Thyroid Peroxidase Antibodies 18 IU/mL (0-34); Triiodothyronine (T3) Free 2.6 pg/mL (2.0-4.4)
[2023-10-10 15:15] LABS: Thyroglobulin Level <1.0 IU/mL (0.0-0.9)
== END 2023-10-08 23:59 | disposition home or self-care (01) ==
PROVIDERS: PCP Internal Medicine; Visit Provider Internal Medicine
DX: E03.9 Hypothyroidism, unspecified (principal); I10 Essential (primary) hypertension; Z87.891 Personal history of nicotine dependence
CPT/HCPCS: 80061; 84436; 84443; 84481; 86376; 86800

== ENCOUNTER 2023-10-29 09:21 | Outpatient (POV) | payer MEDICARE, MEDICAID, SELFPAY ==
[2023-10-29 10:54] VITALS: BP 118/79; PULSE 103; RESP 18; O2SAT 97; BMI 26.3
--- NOTE | 2023-10-29 13:01 | A.OFFVIS_ITS ---
[facility] Disclaimer: The information contained in this section may have been updated after the patient was seen, as this information can be updated by other users. 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 He rates his pain today 4 out of 10 however states that his pain was at least a 6 out of 10 last night. He states the pain is all in his left hip area and buttocks area. He does describe this as a constant aching, throbbing sensation that is worse with increased activity. He does state the pain interferes with his ability to perform activities of daily living such as cooking and cleaning. Patient is going to physical therapy currently twice a week and does state that that has really significantly helped his overall low back pain however the hip p ain just seems to continuously worsen. Patient does state it will run into his groin. Patient does state from our last visit he ended up undergoing brain surgery in June at and he has been doing well from this surgery. Patient is currently prescribed oxycodone from an outside provider. He denies any side effects from this medication. His Bobby is currently unavailable. We will see if we can do a manual Bobby. Review of Systems: General: No recent weight changes, no fever, no sleep disturbances Respiratory: No cough, no shortness of air, no recurring pulmonary infections Cardiovascular/peripheral vascular: No chest pain, no palpitations, no edema, no shortness of breath Gastrointestinal: No new onset incontinence, normal bowel movements reported Genitourinary: No new onset incontinence Musculoskeletal: Left hip pain Psychiatric: [Normal mood/affect] Neurological: [Denies weakness in extremities], [denies balance issues] Pain at rest (0-10 scale): 6 Objective Objective:: Physical Exam: General: Alert and oriented x3, no acute distress, pleasant and cooperative Lungs: Respirations even and unlabored, symmetrical chest expansion Eyes: PERRL Musculoskeletal: Flexion and extension of left hip somewhat guarded secondary to pain, [antalgic gait noted] Neurological: Speech clear, no gross sensory deficit Has patient had previous pain injection?: No Conservative treatment options previously tried: Home exercise plan Length of treatment: Longer than 6 weeks and Physical Therapy Length of treatment: Current therapy Meds Home Medications and Allergies Home Medications ?Medication ?Instructions ?Recorded ?Confirmed ?Type atorvastatin 10 mg tablet 10 mg PO DAILY #30 tabs 08/19/23 10/29/23 Rx levothyroxine 50 mcg tablet 50 mcg PO DAILY THYROID 09/09/23 10/29/23 History oxycodone 5 mg tablet 5 mg PO BID PRN pain 30 days #60 10/08/23 10/29/23 Rx tabs New Prescriptions to Start Prescriptions: Allergies Allergy/AdvReac Type Severity Reaction Status Date / Time No Known Allergies Allergy Verified 10/08/23 08:36 Assessment and Plan *Assessment and plan (1) Left hip pain: Status: Acute Category: Medical Code(s): M25.552 - Pain in left hip Plan Patient is experiencing significant pain throughout his left hip that does radiate into his groin. Patient had limited range of motion. I did discuss with patient that he may benefit from a left hip intra-articular injection. Risk and benefits were discussed with patient and he would like to proceed forward with this plan of care. Patient had negative point tenderness along his left SI. Patient has tried and failed conservative therapy including continued at home stretching exercise and current physical therapy. Patient has had hip pain going on for longer than 3 months. We will order him left intra-articular hip injection under fluoroscopy. Patient has been instructed to contact the clinic with any concerns before the next appointment. Dr. De La Torre has reviewed this note and agrees with this plan of care. This note was dictated using voice recognition software and make contain errors or omissions. All injections are used with Lidocaine or Bupivacaine and Depo Medrol.
== END 2023-10-29 23:59 | disposition home or self-care (01) ==
LOC: SC.PAIN 09:22
PROVIDERS: PCP Internal Medicine; Visit Provider Nurse Practitioner Family
DX: M25.552 Pain in left hip (principal); F12.90 Cannabis use, unspecified, uncomplicated; Z87.891 Personal history of nicotine dependence; Z73.89 Other problems related to life management difficulty
CPT/HCPCS: 99212; G0463

== ENCOUNTER 2023-11-07 11:00 | Outpatient (RCR) | payer BC, MEDICAID, SELFPAY ==
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
--- NOTE | 2023-10-22 11:34 | HMH.RHREAS ---
Rehab Reassessment Rehab OP Re-assessment Start: 09/24/23 11:07 Freq: Status: Active Protocol: Document 10/22/23 11:13 SELENAMELITON (Rec: 10/22/23 11:33 SELENAMELITON [id number]) E-signed By Larry Haynes, PT Oswestry Index Section 1 Pain Intensity The pain comes and goes and is severe Section 2 Personal Care (Washing,Dresing) increase the pain and I find it necessary to change my way of doing it Section 3 Lifting lifting heavy weights off the floor, but I can manage light to medium Section 4 Walking I cannot walk more than 1/4 mile without increasing pain Section 5 Sitting Pain prevents me from sitting for more than 1/2 hour Section 6 Standing I cannot stand more than 1/2 hour without increasing pain Section 7 Sleeping Because of my pain, my normal night's sleep is less than 6 hours sleep Section 8 Social Life Pain has restricted my social life to my home Section 9 Traveling I get extra pain while traveling which compels me to seek alternate fo Section 10 Changing Degreee of Pain My pain is neither getting better or worse Score and Risk Level Oswestry Sc 33 Oswestry Risk Level Severe Disability Rehab Re-assessment Subjective Subjective Pt reports improved ability to 'to be up around the house' with less LBP and left hip area pain, reports 5/10 LBP/ left hip pain on VAS this am. Objective Objective Notes LUMBAR SPINE AROM: FLX 0-41, EXT 0-10 , RIGHT SB 0-15 , LEFT SB 0-12 MMT: LEFT HIP FLX 4-/5, L HIP IR 4-/5, L HIP ER 4/5, L TTP: LEFT LUMBAR PARASPINALS 1 /4, LEFT GLUT/PIRIFORMIS MM 1- 2/4 Assessment Progress Assessment Progressing as Expected Assessment Notes Pt exhibits improvements in ROM and TTP, as well as slight progression in strength Patient goals met STG'S 08/05 LTG'S 04/08 Goals Not Met STG'S 06/05, LTG'S 11/06 Plan Plan Pt to continue w/skilled P.T. to make further improvements in ROM, strength, and TTP to allow for optimal function Frequency of Therapy 1-2x/wk Duration of therapy 4-6wks Time and Billing Re-Eval Time 12 Re-Eval Billing Units 1 PHYSICIAN CERTIFICATION: I certify the specified therapy services for Aimee N Glass are required, authorized, and reviewed every 30 days.
== END 2023-11-07 11:05 | disposition home or self-care (01) ==
LOC: PT 11:00
PROVIDERS: Visit Provider Internal Medicine
DX: M54.50 Low back pain, unspecified (principal); M54.9 Dorsalgia, unspecified
CPT/HCPCS: 97010; 97014; 97110; 97163; 97164; G0283

== ENCOUNTER 2023-11-11 09:19 | Day surgery (SDC) | payer MEDICARE, MEDICAID, SELFPAY ==
[2023-11-11 10:00] VITALS: BP 117/85; PULSE 82; RESP 16; O2SAT 97; BMI 26.9
[2023-11-11] MEDS: BUPIVACAINE 0.25% 10ML INJ 25 MG IJ (10:09)
[2023-11-11] MEDS: LIDOCAINE 1% 5ML PF VIAL 5 ML (10:09)
[2023-11-11] MEDS: methylPREDNISolone ACETATE 80MG/ML VIAL 80 MG (10:09)
[2023-11-11 10:13] VITALS: BP 131/84; PULSE 80; RESP 18; O2SAT 97
--- NOTE | 2023-11-11 10:13 | EXP.PAIN.PRO ---
Procedure Date: 11/11/23 Time: 10:05 Anesthesiologist:: Asif Downs CRNA Complications:: None Pre-procedure Diagnosis:: DJD left hip. Chronic left hip pain. Post-procedure Diagnosis:: Same. Indications for Procedure:: Patient is a pleasant 63-year-old male who comes our clinic today for left intra-articular hip injection of cortisone and local anesthetic. Patient describes left hip pain as constant, dull, aching. Pain intensifies with abduction. Pain intensifies with ambulation. He rates his pain 8/10. Procedure Details:: Details of the procedure were explained to the patient. The patient was taken to procedure room placed in the supine position. The area over the left hip was cleaned using chlorhexidine as a cleansing solution. Using fluoroscopy guidance a 3 and half inch 22-gauge spinal needle was used to access the left hip joint without difficulty. After negative aspiration 3 cc of 1% lidocaine +3 cc of 0.25% Marcaine and 40 mg of Depo-Medrol was injected. Needle was withdrawn. Band-Aid applied. Patient tolerated procedure without difficulty. There are no complications. Plan and Disposition:: Patient was discharged without incident.
== END 2023-11-11 10:13 | disposition home or self-care (01) ==
PROVIDERS: PCP Internal Medicine; Visit Provider Nurse Anesthetist, Certified Registered
DX: M16.12 Unilateral primary osteoarthritis, left hip (principal); M25.552 Pain in left hip; G89.29 Other chronic pain
CPT/HCPCS: 20610; 77002; J1010

== ENCOUNTER 2023-11-27 10:48 | Outpatient (POV) | payer MEDICARE, MEDICAID, SELFPAY ==
[2023-11-27 10:58] VITALS: BP 125/85; PULSE 87; RESP 16; O2SAT 99; BMI 26.3
--- NOTE | 2023-11-27 11:14 | EXP.PAIN.SOA ---
[facility] Disclaimer: The information contained in this section may have been updated after the patient was seen, as this information can be updated by other users. 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 Today he rates his pain a 1 out of 10. Patient states he has had at least 80 to 90% relief and feels like it is still providing significant improvement. Patient does state he has been able to increase his activity with overall decreased pain. His Bobby has been reviewed and is appropriate. Review of Systems: General: No recent weight changes, no fever, no sleep disturbances Respiratory: No cough, no shortness of air, no recurring pulmonary infections Cardiovascular/peripheral vascular: No chest pain, no palpitations, no edema, no shortness of breath Gastrointestinal: No new onset incontinence, normal bowel movements reported Genitourinary: No new onset incontinence Musculoskeletal: Left hip pain Psychiatric: [Normal mood/affect] Neurological: [Denies weakness in extremities], [denies balance issues] Pain at rest (0-10 scale): 1 Objective Objective:: Physical Exam: General: Alert and oriented x3, no acute distress, pleasant and cooperative Lungs: Respirations even and unlabored, symmetrical chest expansion Eyes: PERRL Musculoskeletal: Flexion and extension of left hip [spine] somewhat guarded secondary to pain, [antalgic gait noted] Neurological: Speech clear, no gross sensory deficit Has patient had previous pain injection?: Yes Percent improvement in pain since last injection: 80 to 90% Conservative treatment options previously tried: Home exercise plan Length of treatment: Longer than 6 weeks Meds Home Medications and Allergies Home Medications ?Medication ?Instructions ?Recorded ?Confirmed ?Type levothyroxine 50 mcg tablet 50 mcg PO DAILY THYROID 09/09/23 11/27/23 History oxycodone 5 mg tablet 5 mg PO BID PRN pain 30 days #60 10/08/23 11/27/23 Rx tabs atorvastatin 10 mg tablet See Rx Instructions .Route 11/17/23 11/27/23 Rx .COMPLEX #90 tabs New Prescriptions to Start Prescriptions: Allergies Allergy/AdvReac Type Severity Reaction Status Date / Time No Known Allergies Allergy Verified 11/11/23 10:01 Assessment and Plan *Assessment and plan (1) Left hip pain: Status: Acute Category: Medical Code(s): M25.552 - Pain in left hip Plan Patient has had significant improvement and does not require any additional injection therapy at this time. Patient will return to clinic in 1 month for reevaluation of symptoms and plan of care. Patient has been instructed to contact the clinic with any concerns before the next appointment. Dr. De La Torre has reviewed this note and agrees with this plan of care. This note was dictated using voice recognition software and make contain errors or omissions. All injections are used with Lidocaine or Bupivacaine and Depo Medrol.
== END 2023-11-27 23:59 | disposition home or self-care (01) ==
LOC: SC.PAIN 10:49
PROVIDERS: PCP Internal Medicine; Visit Provider Nurse Practitioner Family
DX: M25.552 Pain in left hip (principal); Z87.891 Personal history of nicotine dependence; F12.90 Cannabis use, unspecified, uncomplicated
CPT/HCPCS: 99212; G0463

== ENCOUNTER 2023-12-29 09:51 | Outpatient (POV) | payer MEDICARE, MEDICAID, SELFPAY ==
--- NOTE | 2023-12-29 10:05 | EXP.PAIN.SOA ---
[facility] Disclaimer: The information contained in this section may have been updated after the patient was seen, as this information can be updated by other users. 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 Today he rates his pain a 2 out of 10. Patient did have a intra-articular hip injection on the left side back in October that did provide 80 to 90% relief. He does state today that he still feels like this is really doing well and maintaining. He states he has been able to increase his activity with overall decreased pain and feels much more functional. He does state that he did a little bit of a walk last week and is a little bit more sore from this however it is nothing like what it had been. His Bobby has been reviewed and is appropriate. Review of Systems: General: No recent weight changes, no fever, no sleep disturbances Respiratory: No cough, no shortness of air, no recurring pulmonary infections Cardiovascular/peripheral vascular: No chest pain, no palpitations, no edema, no shortness of breath Gastrointestinal: No new onset incontinence, normal bowel movements reported Genitourinary: No new onset incontinence Musculoskeletal: Left hip pain Psychiatric: [Normal mood/affect] Neurological: [Denies weakness in extremities], [denies balance issues] Pain at rest (0-10 scale): 2 Objective Objective:: Physical Exam: General: Alert and oriented x3, no acute distress, pleasant and cooperative Lungs: Respirations even and unlabored, symmetrical chest expansion Eyes: PERRL Musculoskeletal: Flexion and extension of left hip somewhat guarded secondary to pain, [antalgic gait noted] Neurological: Speech clear, no gross sensory deficit Has patient had previous pain injection?: No Conservative treatment options previously tried: Home exercise plan Length of treatment: Longer than 12 weeks Meds Home Medications and Allergies Home Medications ?Medication ?Instructions ?Recorded ?Confirmed ?Type levothyroxine 50 mcg tablet 50 mcg PO DAILY THYROID 09/09/23 11/27/23 History oxycodone 5 mg tablet 5 mg PO BID PRN pain 30 days #60 10/08/23 11/27/23 Rx tabs atorvastatin 10 mg tablet See Rx Instructions .Route 12/04/23 Rx .COMPLEX #90 tabs New Prescriptions to Start Prescriptions: Allergies Allergy/AdvReac Type Severity Reaction Status Date / Time No Known Allergies Allergy Verified 11/11/23 10:01 Assessment and Plan *Assessment and plan (1) Left hip pain: Status: Acute Category: Medical Code(s): M25.552 - Pain in left hip Plan Patient is still doing well following his intra-articular hip injection on the left side that was November 10. Patient does not require any additional injection therapy at this time. Patient will return to clinic in 3 months for reevaluation of symptoms and plan of care. Patient has been instructed to contact the clinic with any concerns before the next appointment. Dr. De La Torre has reviewed this note and agrees with this plan of care. This note was dictated using voice recognition software and make contain errors or omissions. All injections are used with Lidocaine or Bupivacaine and Depo Medrol.
[2023-12-29 10:56] VITALS: BP 151/90; PULSE 94; RESP 18; O2SAT 97; BMI 26.9
== END 2023-12-29 23:59 | disposition home or self-care (01) ==
LOC: SC.PAIN 09:52
PROVIDERS: PCP Internal Medicine; Visit Provider Nurse Practitioner Family
DX: M25.552 Pain in left hip (principal); Z87.891 Personal history of nicotine dependence; F12.90 Cannabis use, unspecified, uncomplicated
CPT/HCPCS: 99212; G0463

== ENCOUNTER 2024-04-01 08:31 | Outpatient (POV) | payer MEDICARE, MEDICAID, SELFPAY ==
--- NOTE | 2024-04-01 09:11 | A.OFFVIS_ITS ---
[facility] Disclaimer: The information contained in this section may have been updated after the patient was seen, as this information can be updated by other users. 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 Today he rates his pain a 5 out of 10. Patient did have a intra-articular hip injection on the left side back in October that did provide 80 to 90% relief. He states today that it has officially worn off and that he is having significant pain in that left hip. He does describe it as an aching, throbbing sensation that is worse with increased activity or ambulation. He does state the pain is interfering with his ability to perforM activities of daily living such as cooking and cleaning. Patient did have significant relief with his last intra- articular hip injection and would like to see about getting on the schedule for another injection. His Bobby has been reviewed and is appropriate. Review of Systems: General: No recent weight changes, no fever, no sleep disturbances Respiratory: No cough, no shortness of air, no recurring pulmonary infections Cardiovascular/peripheral vascular: No chest pain, no palpitations, no edema, no shortness of breath Gastrointestinal: No new onset incontinence, normal bowel movements reported Genitourinary: No new onset incontinence Musculoskeletal: Left hip pain Psychiatric: [Normal mood/affect] Neurological: [Denies weakness in extremities], [denies balance issues] Pain at rest (0-10 scale): 5 Objective Objective:: Physical Exam: General: Alert and oriented x3, no acute distress, pleasant and cooperative Lungs: Respirations even and unlabored, symmetrical chest expansion Eyes: PERRL Musculoskeletal: Flexion and extension of lumbar [spine] somewhat guarded secondary to pain, [antalgic gait noted] Neurological: Speech clear, no gross sensory deficit Has patient had previous pain injection?: No Conservative treatment options previously tried: Home exercise plan Length of treatment: Longer than 12 weeks Meds Home Medications and Allergies Home Medications ?Medication ?Instructions ?Recorded ?Confirmed ?Type levothyroxine 50 mcg tablet 50 mcg PO DAILY THYROID 09/09/23 12/29/23 History oxycodone 5 mg tablet 5 mg PO BID PRN pain 30 days #60 10/08/23 12/29/23 Rx tabs atorvastatin 10 mg tablet See Rx Instructions .Route 12/04/23 12/29/23 Rx .COMPLEX #90 tabs New Prescriptions to Start Prescriptions: Allergies Allergy/AdvReac Type Severity Reaction Status Date / Time No Known Allergies Allergy Verified 11/11/23 10:01 Assessment and Plan *Assessment and plan (1) Lumbar radiculopathy: Status: Acute Category: Medical Code(s): M54.16 - Radiculopathy, lumbar region (2) Cervical radiculopathy: Status: Acute Category: Medical Code(s): M54.12 - Radiculopathy, cervical region (3) Neck pain: Status: Acute Category: Medical Code(s): M54.2 - Cervicalgia (4) Left hip pain: Status: Acute Category: Medical Code(s): M25.552 - Pain in left hip (5) Myofascial pain: Status: Acute Category: Medical Code(s): M79.18 - Myalgia, other site (6) Degenerative disc disease, lumbar: Status: Acute Category: Medical Code(s): M51.369 - Other intervertebral disc degeneration, lumbar region without mention of lumbar back pain or lower extremity pain (7) Degenerative disc disease, cervical: Status: Acute Category: Medical Code(s): M50.30 - Other cervical disc degeneration, unspecified cervical region Plan Patient is experiencing worsening paiN in his left hip with limited range of motion. I did review over with him the risk and benefits of repeat injection. Patient would like to proceed forward with this plan of care. Patient had his last intra-articular hip injection in October that did provide 80 to 90% and has lasted up until the last month. Patient did have improved function for almost 4 months with decreased pain. We will schedule the patient for a repeat intra-a rticular hip injection under fluoroscopy. patient has been instructed to contact the clinic with any concerns before the next appointment. Dr. De La Torre has reviewed this note and agrees with this plan of care. This note was dictated using voice recognition software and make contain errors or omissions. All injections are used with Lidocaine, Bupivacaine and Depo Medrol. Occasionally urine drug screen is needed to verify patient's compliance with our office pain contract. This is ordered based off specific treatments related to chronic pain with the potential to abuse certain medications.
[2024-04-01 09:24] VITALS: BP 143/94; PULSE 92; RESP 16; O2SAT 97; BMI 26.9
== END 2024-04-01 23:59 | disposition home or self-care (01) ==
LOC: SC.PAIN 08:32
PROVIDERS: PCP Internal Medicine; Visit Provider Nurse Practitioner Family
DX: M51.16 Intervertebral disc disorders with radiculopathy, lumbar region (principal); M50.10 Cervical disc disorder with radiculopathy, unspecified cervical region; M25.552 Pain in left hip; M79.18 Myalgia, other site; Z87.891 Personal history of nicotine dependence; Z73.89 Other problems related to life management difficulty
CPT/HCPCS: 99212; G0463

== ENCOUNTER 2024-04-13 13:24 | Day surgery (SDC) | payer MEDICARE, MEDICAID, SELFPAY ==
[2024-04-13 14:10] VITALS: BP 124/84; PULSE 84; RESP 16; TEMP 36.4; O2SAT 96
[2024-04-13 14:25] VITALS: BP 127/80; PULSE 79; PULSE 83; RESP 18; O2SAT 99
[2024-04-13] MEDS: BUPIVACAINE 0.25% 10ML INJ 25 MG IJ (14:26)
[2024-04-13] MEDS: LIDOCAINE 1% 5ML PF VIAL 5 ML (14:27)
[2024-04-13] MEDS: methylPREDNISolone ACETATE 80MG/ML VIAL 80 MG (14:27)
--- NOTE | 2024-04-13 14:30 | EXP.PAIN.PRO ---
Procedure Date: 04/13/24 Time: 14:30 Anesthesiologist:: Asif Downs CRNA Complications:: None Pre-procedure Diagnosis:: DJD left hip. Chronic left hip pain. Post-procedure Diagnosis:: Same. Indications for Procedure:: Patient is a pleasant 63-year-old male who comes our clinic today for a left intra-articular hip injection. Patient describes left hip pain as constant, dull, sharp, stabbing. Patient is having difficulty with ambulation secondary to left hip pain. He rates his pain today 8/10. Patient reports he responded well in the past to intra-articular cortisone injection of the left hip. Procedure Details:: Details of the procedure were explained to the patient. The patient was taken to procedure room placed in the supine position. The area over the left hip was cleaned using chlorhexidine as a cleansing solution. Using fluoroscopy guidance a 3 and half inch 22-gauge spinal needle was used to access the left hip joint without difficulty. After negative aspiration 3 cc of 1% lidocaine +3 cc of 0.25% Marcaine and 40 mg of Depo-Medrol was injected. Needle was withdrawn. Band-Aid applied. Patient tolerated procedure without difficulty. There are no complications. Plan and Disposition:: Patient was discharged without incident.
[2024-04-13 14:39] VITALS: BP 122/72; PULSE 75; RESP 18; O2SAT 98
== END 2024-04-13 14:12 | disposition home or self-care (01) ==
PROVIDERS: PCP Internal Medicine; Visit Provider Nurse Anesthetist, Certified Registered
DX: M16.12 Unilateral primary osteoarthritis, left hip (principal); M25.552 Pain in left hip; G89.29 Other chronic pain
CPT/HCPCS: 20610; 77002; J1010

== ENCOUNTER 2024-04-28 10:43 | Outpatient (POV) | payer MEDICARE, MEDICAID, SELFPAY ==
[2024-04-28 10:55] VITALS: BP 116/85; PULSE 87; RESP 14; O2SAT 97; BMI 26.9
--- NOTE | 2024-04-28 11:06 | A.OFFVIS_ITS ---
[facility] Disclaimer: The information contained in this section may have been updated after the patient was seen, as this information can be updated by other users. 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 Today he rates his pain a 1 out of 10. He denies any new trauma or injury. He does state that he has had at least 75 to 80% improvement following this procedure and feels like it is significantly helping. He denies any other changes. His Bobby has been reviewed and is appropriate. Review of Systems: General: No recent weight changes, no fever, no sleep disturbances Respiratory: No cough, no shortness of air, no recurring pulmonary infections Cardiovascular/peripheral vascular: No chest pain, no palpitations, no edema, no shortness of breath Gastrointestinal: No new onset incontinence, normal bowel movements reported Genitourinary: No new onset incontinence Musculoskeletal: Left hip pain Psychiatric: [Normal mood/affect] Neurological: [Denies weakness in extremities], [denies balance issues] Pain at rest (0-10 scale): 1 Objective Objective:: Physical Exam: General: Alert and oriented x3, no acute distress, pleasant and cooperative Lungs: Respirations even and unlabored, symmetrical chest expansion Eyes: PERRL Musculoskeletal: Flexion and extension of left hip somewhat guarded secondary to pain, [antalgic gait noted] Neurological: Speech clear, no gross sensory deficit Has patient had previous pain injection?: Yes Percent improvement in pain since last injection: 75 to 80% Conservative treatment options previously tried: Home exercise plan Length of treatment: Longer than 12 weeks Meds Home Medications and Allergies Home Medications ?Medication ?Instructions ?Recorded ?Confirmed ?Type levothyroxine 50 mcg tablet 50 mcg PO DAILY THYROID 09/09/23 04/01/24 History oxycodone 5 mg tablet 5 mg PO BID PRN pain 30 days #60 10/08/23 04/01/24 Rx tabs atorvastatin 10 mg tablet See Rx Instructions .Route 12/04/23 04/01/24 Rx .COMPLEX #90 tabs baclofen 10 mg tablet 10 mg PO BID #28 tabs 04/07/24 Rx New Prescriptions to Start Prescriptions: Allergies Allergy/AdvReac Type Severity Reaction Status Date / Time No Known Allergies Allergy Verified 11/11/23 10:01 Assessment and Plan *Assessment and plan (1) Left hip pain: Status: Acute Category: Medical Code(s): M25.552 - Pain in left hip Plan Patient has had significant improvement and does not require any additional injection therapy at this time. Patient will return to clinic in 6 weeks. Patient has been instructed to contact the clinic with any concerns before the next appointment. Dr. De La Torre has reviewed this note and agrees with this plan of care. This note was dictated using voice recognition software and make contain errors or omissions. All injections are used with Lidocaine, Bupivacaine and Depo Medrol. Occasionally urine drug screen is needed to verify patient's compliance with our office pain contract. This is ordered based off specific treatments related to chronic pain with the potential to abuse certain medications.
== END 2024-04-28 23:59 | disposition home or self-care (01) ==
LOC: SC.PAIN 10:44
PROVIDERS: PCP Internal Medicine; Visit Provider Nurse Practitioner Family
DX: M25.552 Pain in left hip (principal); Z87.891 Personal history of nicotine dependence
CPT/HCPCS: 99212; G0463

== ENCOUNTER 2024-06-10 11:28 | Outpatient (POV) | payer MEDICARE, SELFPAY ==
--- NOTE | 2024-06-10 11:37 | A.OFFVIS_ITS ---
[facility] Disclaimer: The information contained in this section may have been updated after the patient was seen, as this information can be updated by other users. 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 Patient rates his pain today a 4 out of 10. Patient did previously have a left intra-articular hip injection back on April 13 that did provide 75 to 80% relief and at our last visit was still working well. Today he states that it is starting to decrease. He states that certain days it goes at 2 is 6 out of 10. He states he is feeling it more consistently and would like to see about repeat injection. Patient denies any new falls or injuries. He does state that the pain is starting to interfere with his ability to perform activities of daily living such as cooking and cleaning. Patient has continued oral medications, heat and ice, topicals, at home stretching exercise for longer than 12 weeks between injections. His Bobby has been reviewed and is appropriate. Review of Systems: General: No recent weight changes, no fever, no sleep disturbances Respiratory: No cough, no shortness of air, no recurring pulmonary infections Cardiovascular/peripheral vascular: No chest pain, no palpitations, no edema, no shortness of breath Gastrointestinal: No new onset incontinence, normal bowel movements reported Genitourinary: No new onset incontinence Musculoskeletal: Left hip pain Psychiatric: [Normal mood/affect] Neurological: [Denies weakness in extremities], [denies balance issues] Pain at rest (0-10 scale): 6 Objective Objective:: Physical Exam: General: Alert and oriented x3, no acute distress, pleasant and cooperative Lungs: Respirations even and unlabored, symmetrical chest expansion Eyes: PERRL Musculoskeletal: Flexion and extension of left hip somewhat guarded secondary to pain, [antalgic gait noted] Neurological: Speech clear, no gross sensory deficit Has patient had previous pain injection?: No Conservative treatment options previously tried: Home exercise plan Length of treatment: Longer than 12 weeks Meds Home Medications and Allergies Home Medications ?Medication ?Instructions ?Recorded ?Confirmed ?Type levothyroxine 50 mcg tablet 50 mcg PO DAILY THYROID 09/09/23 04/28/24 History oxycodone 5 mg tablet 5 mg PO BID PRN pain 30 days #60 10/08/23 04/28/24 Rx tabs atorvastatin 10 mg tablet See Rx Instructions .Route 12/04/23 04/28/24 Rx .COMPLEX #90 tabs baclofen 10 mg tablet 10 mg PO BID #28 tabs 04/07/24 04/28/24 Rx New Prescriptions to Start Prescriptions: Allergies Allergy/AdvReac Type Severity Reaction Status Date / Time No Known Allergies Allergy Verified 11/11/23 10:01 Assessment and Plan *Assessment and plan (1) Left hip pain: Status: Acute Category: Medical Code(s): M25.552 - Pain in left hip Plan Patient is experiencing worsening pain in his left hip with limited range of motion. I did discuss with the patient the risk and benefits of repeat left hip intra-articular injection. Patient would like to proceed forward with this plan of care. Patient has continued conservative treatment including at home stretching exercise for longer than 12 weeks that was physician guided. Patient will be scheduled for a left hip intra-articular joint injection under fluoroscopy. Patient did have his last 1 in March that did provide 75% to 80% improvement and has lasted longer than 2 months. Patient does state that he had improved function with overall decreased pain. Patient has been instructed to contact the clinic with any concerns before the next appointment. Dr. De La Torre has reviewed this note and agrees with this plan of care. This note was dictated using voice recognition software and make contain errors or omissions. All injections are used with Lidocaine, Bupivacaine and Depo Medrol. Occasionally urine drug screen is needed to verify patient's compliance with our office pain contract. This is ordered based off specific treatments related to chronic pain with the potential to abuse certain medications.
[2024-06-10 13:55] VITALS: BP 129/82; PULSE 78; RESP 14; O2SAT 99; BMI 27.6
== END 2024-06-10 23:59 | disposition home or self-care (01) ==
LOC: SC.PAIN 11:34
PROVIDERS: PCP Internal Medicine; Visit Provider Nurse Practitioner Family
DX: M25.552 Pain in left hip (principal); Z87.891 Personal history of nicotine dependence; Z73.89 Other problems related to life management difficulty
CPT/HCPCS: 99212; G0463

== ENCOUNTER 2024-07-13 09:46 | Day surgery (SDC) | payer MEDICARE, MEDICAID, SELFPAY ==
[2024-07-13 10:03] VITALS: BP 143/96; PULSE 82; RESP 16; TEMP 36.3; O2SAT 98; BMI 27.6
--- NOTE | 2024-07-13 10:17 | EXP.PAIN.PRO ---
Procedure Date: 07/13/24 Time: 10:10 Anesthesiologist:: Asif Downs CRNA Complications:: None Pre-procedure Diagnosis:: DJD left hip. Chronic left hip pain. Post-procedure Diagnosis:: Same. Indications for Procedure:: Patient is a very pleasant 64-year-old male who comes our clinic today for a repeat left intra-articular hip injection of cortisone and local anesthetic. Patient reports significant improvement terms of his overall left hip pain with previous injections of cortisone. He reports having difficulty with adduction and abduction. Procedure Details:: Details of the procedure were explained to the patient. The patient was taken to procedure room placed in the supine position. The area over the left hip was cleaned using chlorhexidine as a cleansing solution. Using fluoroscopy guidance a 3 and half inch 22-gauge spinal needle was used to access the left hip joint without difficulty. After negative aspiration 3 cc of 1% lidocaine +3 cc of 0.25% Marcaine and 40 mg of Depo-Medrol was injected. Needle was withdrawn. Band-Aid applied. Patient tolerated procedure without difficulty. There are no complications. Plan and Disposition:: Patient was discharged without incident.
[2024-07-13] MEDS: BUPIVACAINE 0.25% 10ML INJ 25 MG IJ (10:22)
[2024-07-13] MEDS: methylPREDNISolone ACETATE 80MG/ML VIAL 80 MG (10:22)
[2024-07-13] MEDS: LIDOCAINE 1% 5ML PF VIAL 5 ML (10:22)
[2024-07-13 10:23] VITALS: BP 140/96; BP 143/90; PULSE 80; PULSE 82; RESP 16; RESP 18; O2SAT 97; O2SAT 98
[2024-07-13 10:27] VITALS: BP 140/96; PULSE 82; RESP 18; O2SAT 98
== END 2024-07-13 10:23 | disposition home or self-care (01) ==
PROVIDERS: PCP Family Medicine; Visit Provider Nurse Anesthetist, Certified Registered
DX: M16.12 Unilateral primary osteoarthritis, left hip (principal); M25.552 Pain in left hip; G89.29 Other chronic pain
CPT/HCPCS: 20610; 77002; J1010

== ENCOUNTER 2024-07-26 10:59 | Outpatient (POV) | payer MEDICARE, MEDICAID, SELFPAY ==
--- NOTE | 2024-07-26 11:13 | A.OFFVIS_ITS ---
[facility] Disclaimer: The information contained in this section may have been updated after the patient was seen, as this information can be updated by other users. 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 Today he rates his pain a 1 out of 10. He states he has had approximately 80% improvement and feels like it is still continuing to provide significant relief. Patient does make mention that he does have some chronic left knee pain that does bother him from time to time. He states that he has had a scope in the past on the left knee however denies a replacement. He also states that he has even had to have it drained in the past. Patient does not recall having an injection in this joint space. His Bobby has been reviewed and is appropriate. Review of Systems: General: No recent weight changes, no fever, no sleep disturbances Respiratory: No cough, no shortness of air, no recurring pulmonary infections Cardiovascular/peripheral vascular: No chest pain, no palpitations, no edema, no shortness of breath Gastrointestinal: No new onset incontinence, normal bowel movements reported Genitourinary: No new onset incontinence Musculoskeletal: Left knee pain Psychiatric: [Normal mood/affect] Neurological: [Denies weakness in extremities], [denies balance issues] Pain at rest (0-10 scale): 1 Objective Objective:: Physical Exam: General: Alert and oriented x3, no acute distress, pleasant and cooperative Lungs: Respirations even and unlabored, symmetrical chest expansion Eyes: PERRL Musculoskeletal: Flexion and extension of left hip within normal limit Neurological: Speech clear, no gross sensory deficit Has patient had previous pain injection?: Yes Percent improvement in pain since last injection: 80% Conservative treatment options previously tried: Home exercise plan Length of treatment: Longer than 12 weeks Meds Home Medications and Allergies Home Medications ?Medication ?Instructions ?Recorded ?Confirmed ?Type levothyroxine 50 mcg tablet 50 mcg PO DAILY THYROID 09/09/23 07/13/24 History oxycodone 5 mg tablet 5 mg PO BID PRN pain 30 days #60 10/08/23 07/13/24 Rx tabs atorvastatin 10 mg tablet See Rx Instructions .Route 12/04/23 07/13/24 Rx .COMPLEX #90 tabs baclofen 10 mg tablet 10 mg PO BID #28 tabs 04/07/24 07/13/24 Rx New Prescriptions to Start Prescriptions: Allergies Allergy/AdvReac Type Severity Reaction Status Date / Time No Known Allergies Allergy Verified 11/11/23 10:01 Assessment and Plan *Assessment and plan (1) Left hip pain: Status: Acute Category: Medical Code(s): M25.552 - Pain in left hip (2) Left knee pain: Status: Acute Category: Medical Code(s): M25.562 - Pain in left knee Plan Patient has had significant improvement following his left hip intra-articular injection and does not require any additional injection therapy at this location. I did discuss with the patient in future that he may benefit from intra-articular knee injections if the pain continues to worsen and does start interfering with his ADLs. We will continue to follow-up on this. Patient will return to clinic in 6 weeks. Patient has been instructed to contact the clinic with any concerns before the next appointment. Dr. De La Torre has reviewed this note and agrees with this plan of care. This note was dictated using voice recognition software and make contain errors or omissions. All injections are used with Lidocaine, Bupivacaine and dexamethasone. Occasionally urine drug screen is needed to verify patient's compliance with our office pain contract. This is ordered based off specific treatments related to chronic pain with the potential to abuse certain medications.
[2024-07-26 11:15] VITALS: BP 136/87; PULSE 84; RESP 18; O2SAT 98; BMI 26.9
== END 2024-07-26 23:59 | disposition home or self-care (01) ==
LOC: SC.PAIN 11:00
PROVIDERS: PCP Family Medicine; Visit Provider Nurse Practitioner Family
DX: M25.552 Pain in left hip (principal); M25.562 Pain in left knee; Z87.891 Personal history of nicotine dependence
CPT/HCPCS: 99212; G0463

== ENCOUNTER 2024-09-06 09:23 | Outpatient (POV) | payer MEDICARE, MEDICAID, SELFPAY ==
--- OUTSIDE RECORDS SUMMARY | 2024-09-06 09:28 | XMS_ITS | Clinical Summary ---
Author Organization [employer] Address [address] [place] [address] Care Team Providers Care Sales Manager Prearranged Funerals Name Role Phone Unavailable Primary Care Provider Unavailabl e Social History Tobacco Use Types Packs/Day Years Used Date Smoking Tobacco: Never Assessed Sex and Gender Information Value Date Recorded Sex Assigned at Male 03/19/2024 9:50 AM FROZEN MEAT CUTTER Legal Sex Male 9:50 AM FROZEN MEAT CUTTER Gender Identity Male 03/19/2024 9:50 AM FROZEN MEAT CUTTER Sexual Orientation Not on file Plan of Treatment Not on file
--- OUTSIDE RECORDS SUMMARY | 2024-09-06 09:28 | XMS_ITS | Encounter Summary ---
Author Organization [facility] Address [address] [place] [address] Care Team Providers Care Reed Worker Name Role Phone Michael Lopez MD Primary Care Provider [phone] Pcp, No Primary Care Provider Unavailabl e Michael Lopez MD Unavailable [phone] Terrence Balderas DO Primary Care Provider [phone] Reason for Referral * Consultation (Routine) - Closed Specialty Diagnoses / Procedures Referred By Tera mccallum Referred To Contact Neurosurgery Diagnoses Cervical nerve root impingement Cervical osteophyte Lumbar nerve root impingement Lumbar foraminal stenosis Michael Lopez MD [address] [place] [address] Phone: tel: fax: Referral ID Status Reason Start Date Expiration Date V isits Requested Visits Authorized [id number] Closed Specialty Services Required 11/02/2021 05/04/2023 1 1 Encounter Details Date Type Department Care Team (Late st Contact Info) Description 11/02/2021 Community [facility] [address] [place] [address] Michael Lopez MD [address] [place] [address] Cervical nerve root impingement (Primary Dx); Cervical osteophyte; Lumbar nerve root impingement; Lumbar foraminal stenosis Social History Tobacco Use Types Packs/Day Years Used Date Smoking Tobacco: Never Assessed Sex and Gender Information Value Date Recorded Sex Assigned at Not on file Legal Sex Male 6:55 PM EDT Gender Identity Not on file Sexual Orientation Not on file documented as of this encounter Plan of Treatment Upcoming Encounters Date Type Department Care Team (Late st Contact Info) Description 09/21/2024 9:30 AM EDT Office [facility] [address] [place] [address] Alfredo Anderson MD [address] [place] [address] 11/19/2024 1:20 PM EDT Appointment [facility] [address], [address] [place] [address] 11/19/2024 2:30 PM EDT [facility] [address] [place] [address] Wale Uriostegui MD [address] [place] [address] 12/14/2024 11:20 AM EDT Office Visit [facility] Endocrinology [address] [place] [address] Paul Francisco MD [address] [place] [address] 05/20/2025 1:45 PM EST [facility] [address] [facility] [place] [address] Terrence Quinn MD [address] [place] [address] Scheduled Referrals Name Type Priority Associated Diagnoses Order Schedule Ambulatory Referral to Neurosurgery Outpatient Referral Routine Cervical nerve root impingement Cervical osteophyte Lumbar nerve root impingement Lumbar foraminal stenosis Expected: 11/02/2021 (Approximate), Expires: 02/02/2022 documented as of this encounter Visit Diagnoses Diagnosis Cervical nerve root impingement- Primary Brachial neuritis or radiculitis nos Cervical osteophyte Lumbar nerve root impingement Thoracic or lumbosacral neuritis or radiculitis, unspecified Lumbar foraminal stenosis documented in this encounter Additional Health Concerns Infection Onset Date Last Indicated Resolved Time Respiratory Rule-Out 07/17/2023 07/17/2023 024 11:59 AM EDT COVID-19 Rule-Out 07/17/2023 07/17/2023 07/17/2023 8:50 AM EDT Meningitis Rule-Out 07/17/2023 07/17/2023 07/17/19 10:35 AM EDT Kelly Auris Comment:Duplicate infection 07/23/2023 07/23/2023 07/30/2023 1 :24 PM EDT Kelly Auris Comment:Patient has alternative record with alias and Kelly auris was detected from surveillance swab 07/23/2023 07/23/2023 07/23/2023 documented as of this encounter Care Teams Reed Worker Relationship Specialty Start Date End Date Michael Lopez MD [address] [place] [address] PCP - General 12/07/21 07/16/23 Pcp, [address] [address] PCP - General Family Medicine 07/17/23 10/30/23 Terrence Balderas DO [address] [place] [address] PCP - General 10/31/23 Michael Lopez MD [address] [place] [address] 07/17/23 documented as of this encounter
--- OUTSIDE RECORDS SUMMARY | 2024-09-06 09:28 | XMS_ITS | Encounter Summary ---
Author Organization [employer] Address [address] [place] [address] Care Team Providers Care Oven Laborer Name Role Phone Unavailable Primary Care Provider Unavailabl e Encounter Details Date Type Department Care Team (Late st Contact Info) Description 09/29/2021 Transcribed Document [facility] Family Medicine [address] [place] [address] ProviderJoyce MD [address] [id number] Social History Tobacco Use Types Packs/Day Years Used Date Smoking Tobacco: Never Assessed Sex and Gender Information Value Date Recorded Sex Assigned at Male 03/19/2024 9:50 AM ENGRAVING SUPERVISOR Legal Sex Male 9:50 AM ENGRAVING SUPERVISOR Gender Identity Male 03/19/2024 9:50 AM ENGRAVING SUPERVISOR Sexual Orientation Not on file documented as of this encounter Miscellaneous Notes * Cerner Conversion Note - Historical ProviderMD - 09/29/2021 8:45 PM CDT ED Discharge Entered On: 09/29/2021 20:45 EDT Performed On: 09/29/2021 20:45 EDT by Mayi Jones RN-PATIENT CARE BEDSIDE NON-EXEMPT ED Discharge Discharge To : Home with ambulatory/outpatient follow-up Mode Of Departure : Ambulatory Accompanied By : Unaccompanied Discharge Instructions Reviewed With, Opportunity For Questions Given : Patient Prescriptions Given to Patient : No Mayi Jones RN-PATIENT CARE BEDSIDE NON-EXEMPT - 09/29/2021 20:45 EDT documented in this encounter Plan of Treatment Not on file documented as of this encounter Visit Diagnoses Not on filedocumented in this encounter
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
--- OUTSIDE RECORDS SUMMARY | 2024-09-06 09:28 | XMS_ITS | Encounter Summary ---
Author Organization [employer] Address [address] [place] [address] Care Team Providers Care Manufacturing Industrial Engineer Name Role Phone Unavailable Primary Care Provider Unavailabl e Encounter Details Date Type Department Care Team (Late st Contact Info) Description 09/29/2021 Transcribed Document [facility] Family Medicine [facility] [place] [address] ProviderJoyce MD [address] [place] [address] Social History Tobacco Use Types Packs/Day Years Used Date Smoking Tobacco: Never Assessed Sex and Gender Information Value Date Recorded Sex Assigned at Male 03/19/2024 9:50 AM SHOULDER BONER Legal Sex Male 9:50 AM SHOULDER BONER Gender Identity Male 03/19/2024 9:50 AM SHOULDER BONER Sexual Orientation Not on file documented as of this encounter Miscellaneous Notes * Cerner Conversion Note - Historical ProviderMD - 09/29/2021 8:26 PM CDT Electronically signed by [facility] Conversion Burr Mill Operator Cerner at 07/15/2022 11:29 AM CDT documented in this encounter Plan of Treatment Not on file documented as of this encounter Visit Diagnoses Not on filedocumented in this encounter
--- OUTSIDE RECORDS SUMMARY | 2024-09-06 09:28 | XMS_ITS | Encounter Summary ---
Author Organization [facility] Address [address] [place] [address] Care Team Providers Care Manager Fashion Name Role Phone Pcp, No Primary Care Provider Unavailmimi e Michael Lopez MD Unavailable [phone] Terrence Balderas DO Primary Care Provider Encounter Details Date Type Department Care Team (Late st Contact Info) Description 07/23/2023 Lab Requisition [facility] [address] [place] [address] Lorenzo Simpson MD [address] [facility] [address] [place] [address] Encounter for general adult medical examination without abnormal findings Social History Tobacco Use Types Packs/Day Years Used Date Smoking Tobacco: Never Smokeless Tobacco: Never Alcohol Use Standard Drinks/Week Comments Not Currently 0 (1 standard drink = 0.6 oz pur e alcohol) Humiliation, Afraid, Rape, and Kick questionnair e Answer Date Recorded Within the last year, have y ou been afraid of your partner or ex-partner? Patient declined 07/18/2023 Within the last year, have y ou been humiliated or emotionally abused in other ways by your partner or ex-partner? Patient declined 07/18/2023 Within the last year, have y ou been kicked, hit, slapped, or otherwise physically hurt by your partner or ex-partner? Patient declined 07/18/2023 Within the last year, have y ou been raped or forced to have any kind of sexual activity by your partner or ex-partner? Patient declined 07/18/2023 Hunger Vital Sign Answer Date Recorded Within the past 12 months, y ou worried that your food would run out before you got the money to buy more. Never true 07/18/19 24 Within the past 12 months, t he food you bought just didn't last and you didn't have money to get more. Never true 07/18/2023 PRAPARE - Transportation Answer Date Re corded In the past 12 months, has l ack of transportation kept you from medical appointments or from getting medications? No 06/29 In the past 12 months, has l ack of transportation kept you from meetings, work, or from getting things needed for daily living? No 07/18/2023 Housing Stability Vital Sign Answer Benjie e Recorded In the last 12 months, was t here a time when you were not able to pay the mortgage or rent on time? No 07/18/2023 In the last 12 months, how many places have you lived? 1 07/18/2023 In the last 12 months, was t here a time when you did not have a steady place to sleep or slept in a assisted (including now)? No 07/18/2023 CAGE ASSESSMENT Answer Date Recorded Cage unable to access Not on file 07/19/2023 Cage max number of drinks Not on file 2023 Cage Beverages a week Not on file 07/19/2023 Have you ever felt you should CUT down on your d rinking? 0 07/19/2023 Have you been ANNOYED by people criticizing your drinking? 0 07/19/2023 Have you felt GUILTY about your drinking? 0 07/19/2023 Have you had a drink first t shalom in the morning (EYE-ENGINEERING TECHNICAL WRITER) to steady your nerves or to get rid of a hangover? 0 07/19/2023 CAGE Questionnaire Score 0 024 Utilities Answer Date Recorded In the past 12 months has th e electric, gas, oil, or water company threatened to shut off services in your home? No 07/18/2023 Sex and Gender Information Value Date Recorded Sex Assigned at Not on file Legal Sex Male 6:55 PM EDT Gender Identity Not on file Sexual Orientation Not on file documented as of this encounter Functional Status * Calculated C-SSRS Risk Score (Lifetime/Recent) Answer Date of Assessment Author No Risk Indicated 07/26/2023 4:00 PM EDT Amber Brock RN * Question Answer Date of Assessment Author 1. Wish to be (Past 1 Month) No 024 4:00 PM EDT Amber Brock RN 2. Non-Specific Active Suici nishi Thoughts (Past 1 Month) No 07/26/2023 4:00 PM EDT Thelma Brock RN 6. Suicidal Behavior (Lifetime) No 4:00 PM EDT Amber Brock RN documented as of this encounter Plan of Treatment Upcoming Encounters Date Type Department Care Team (Late st Contact Info) Description 09/21/2024 9:30 AM EDT Office Visit [facility] Otolaryngology [address] [place] [address] Alfredo Anderson MD [address] [place] [address] 11/19/2024 1:20 PM EDT Appointment [facility] [address], [address]st [place] [address] 11/19/2024 2:30 PM EDT Office Visit [facility] [address] [place] [address] Wale Uriostegui MD [address] [place] [address] 12/14/2024 11:20 AM EDT Office Visit [facility] Endocrinology [address] [place] [address] Paul Francisco MD [address] [place] [address] 05/20/2025 1:45 PM EST Office Visit [facility] [address] [place] [address] Terrence Quinn MD [address] [place] [address] documented as of this encounter Procedures Procedure Name Priority Date/Time Associated Diagnosis Comments KELLY AURIS SURVEILLANCE BY PCR Routine 07/23/2023 9:00 AM EDT Encounter for general adult medical examination without abnormal findings KELLY AURIS SURVEILLANCE CULTURE Routine 07/23/2023 9:00 AM EDT Encounter for general adult medical examination without abnormal findings documented in this encounter Results * (ABNORMAL) Kelly auris Surveillance Culture (07/23/2023 9:00 AM EDT) Culture Kelly auris(A) 07/30/2023 12:50 PM EDT [facility] Comment:This isolate has bee n identified using the FDA Approved [employer] CA System Swab (Axilla and Groin) 07/23/2023 9:00 AM EDT 07/23/2023 9:39 AM EDT Lorenzo Simpson MD LAB MICROBIOLOGY - GEN ERAL ORDERABLES Final Result [facility] [address] [place] [address] * (ABNORMAL) Kelly auris Surveillance by PCR (07/23/2023 9:00 AM EDT) Kelly auris PCR Result Detected( A) Not Detected 07/24/2023 9:37 AM EDT [email or web address] Swab (Axilla and Groin) 07/23/2023 9:00 AM EDT 07/23/2023 9:39 AM EDT Narrative [facility] - 07/24/2023 9:37 AM EDT This PCR assay was developed and its performance characteristics determined by [facility] as appropriate for clinical purposes. This assay has not been cleared or approved by the FDA, but is performed in a CLIA regulated laboratory that is qualified to perform high-complexity testing. Lorenzo Simpson MD LAB MICROBIOLOGY - GEN ERAL ORDERABLES Final Result [facility] [address] [place] [address] documented in this encounter Visit Diagnoses Diagnosis Encounter for general adult medical examination without abnormal findings documented in this encounter Additional Health Concerns Infection Onset Date Last Indicated Resolved Time Kelly Auris Comment:Duplicate infection 07/23/2023 07/23/2023 07/30/2023 1 :24 PM EDT Kelly Auris Comment:Patient has alternative record with alias and Kelly auris was detected from surveillance swab 07/23/2023 07/23/2023 07/23/2023 Assessment Noted Time A fall risk assessment has been complete d for the patient 12/07/2021 12:29 PM EDT A Body Mass Index follow-up plan has been documented for the patient 07/26/2023 4:53 PM EDT documented as of this encounter Care Teams Manager Fashion Relationship Specialty Start Date End Date Pcp, No [address] [place] [address] PCP - General Family Medicine 07/17/23 10/30/23 Terrence Balderas DO [address] [place] [address] PCP - General 10/31/23 Michael Lopez MD [address] [place] [address] 07/17/23 documented as of this encounter
--- OUTSIDE RECORDS SUMMARY | 2024-09-06 09:28 | XMS_ITS | Referral Summary ---
Author Organization [employer] Address [address] [place] [address] Care Team Providers Care Peanut Sorter Name Role Phone Unavailable Primary Care Provider Unavailabl e Social History Tobacco Use Types Packs/Day Years Used Date Smoking Tobacco: Never Assessed Sex and Gender Information Value Date Recorded Sex Assigned at Male 03/19/2024 9:50 AM GAS SYSTEM OPERATOR Legal Sex Male 9:50 AM GAS SYSTEM OPERATOR Gender Identity Male 03/19/2024 9:50 AM GAS SYSTEM OPERATOR Sexual Orientation Not on file Plan of Treatment Not on file
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
--- OUTSIDE RECORDS SUMMARY | 2024-09-06 09:28 | XMS_ITS | Encounter Summary ---
Author Organization [employer] Address [address] [place] [id number] Care Team Providers Care Cardio Clinician Name Role Phone Unavailable Primary Care Provider Unavailabl e Encounter Details Date Type Department Care Team (Late st Contact Info) Description 09/29/2021 Transcribed Document [facility] [place] [facility] [place] [address] ProviderJoyce MD [facility] [place] [address] Social History Tobacco Use Types Packs/Day Years Used Date Smoking Tobacco: Never Assessed Sex and Gender Information Value Date Recorded Sex Assigned at Male 03/19/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 Sex Male 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 Gender Identity Male 03/19/2024 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 Sexual Orientation Not on file documented as of this encounter Miscellaneous Notes * Cerner Conversion Note - Joyce ProviderMD - 09/29/2021 8:44 PM CDT ED Discharge Entered On: 09/29/2021 20:45 EDT Performed On: 09/29/2021 20:44 EDT by Mayi Jones RN-PATIENT CARE BEDSIDE NON-EXEMPT Discharge Process Patient Disposition : Discharge Personal Belongings With Patient : Yes Patient Education Completed : Yes Teaching Evaluation : Verbalizes understanding IV Discontinued : Yes Nursing Documentation Completed : Yes Mayi Jones RN-PATIENT CARE BEDSIDE NON-EXEMPT - 09/29/2021 20:44 EDT ED Discharge Vital Signs Systolic Blood Pressure : 145 mmHg (HI) Diastolic Blood Pressure : 86 mmHg Mayi Jones RN-PATIENT CARE BEDSIDE NON-EXEMPT - 09/29/2021 20:44 EDT documented in this encounter Plan of Treatment Not on file documented as of this encounter Visit Diagnoses Not on filedocumented in this encounter
--- OUTSIDE RECORDS SUMMARY | 2024-09-06 09:28 | XMS_ITS | Clinical Summary ---
Author Organization [facility] Address [address] [place] [address] Care Team Providers Care Curtain Worker Name Role Phone Unavailable Primary Care Provider Unavailabl e Social History Tobacco Use Types Packs/Day Years Used Date Smoking Tobacco: Never Assessed Sex and Gender Information Value Date Recorded Sex Assigned at Not on file Legal Sex Male 7:04 PM EST Gender Identity Not on file Sexual Orientation Not on file Plan of Treatment Not on file
--- OUTSIDE RECORDS SUMMARY | 2024-09-06 09:28 | XMS_ITS | Clinical Summary ---
Author Organization [facility] Address [address] [place] [address] Care Team Providers Care Radiological Technologist Name Role Phone Michael Lopez MD Unavailable [phone] Terrence Balderas DO Primary Care Provider [phone] Allergies No known active allergies Medications * This document contains information received from the source organization and may not represent a complete record from that organization. HYDROcodone-acetam inophen ([place]) 5-325 MG tablet Take 1 tablet (5 mg of hydrocodone) by mouth 2 (two) times a day. 10/23/19 22 Active gabapentin (Neurontin) 100 MG capsule Take 1 capsule (100 mg) by mouth. Active oxyCODONE (Roxicodone) 5 MG immediate release tablet Take 1 tablet (5 mg) by mouth every 4 (four) hours if needed for severe pain. 30 tablet 07/26/19 24 Active Additional Information Patient not taking.Reported on 06/22/2024 atorvastatin (Lipitor) 20 MG tabletIndications: Hyperlipidemia, unspecified hyperlipidemia type Take 1 tablet (20 mg) by mouth 1 (one) time each day. 90 tablet 3 12/18/19 24 Active levothyroxine (Synthroid, Levoxyl) 100 MCG tabletIndications: Hypothyroidism, secondary Take 1 tablet by mouth daily. 30 tablet 11 06/30/19 25 026 Active testosterone (Androgel) 25 MG/2.5GM (1%) gel packetIndications: Hypogonadism in male Place 1 each on the skin daily. 30 each 07/07/19 25 Active Active Problems Problem Noted Date Diagnosed Date Hypothyroid 07/23/2023 Overview (07/23/2023): Continue levothyroxine Electrolyte abnormality 07/23/2023 Overview (07/23/2023): Replace per ICU sliding scale policy Continue close assessment Primary hypertension 07/22/2023 Overview (07/23/2023): Goal Normotension PRN Hydralazine and Labetalol Continue home amlodipine, lisinopril Acute encephalopathy 07/17/2023 Overview (07/23/2023): Originally admitted 07/16 for suspected meninginitis Experienced KIRK, N/V, photophobia CSF w/ elevated WBC, protein Pancultures remain unremarkable Continues on Vancomycin, Meropenem per ID recommendations 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 Follow Q4H specific gravities, Q6H serum Na, and QH I&O records Maintain sinus precautions Keep MIVF x24 hours PO fluids Berger catheter [id number] Rest of care per primary team Hydrocortisone per primary 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, unspecified eye 04/02/2023 Presbyopia 04/01/2023 Contact with other sharp obj ect(s), not elsewhere classified, initial encounter 10/03/2022 Laceration of blood vessel of right index finger 10/03/2022 Laceration with foreign body of right index finger without damage to nail, initial encounter 10/03/2022 Resolved Problems Problem Noted Date Diagnosed Date Resolved Date Leukocytosis 07/23/2023 07/26/2023 Overview (07/23/2023): WBC=16, afebrile Multifactorial etiology in setting of critical illness Continue to follow May need more aggressive evaluation in near future 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 04/2 09/2023 Overview (07/23/2023): See apoplexy Altered mental status 07/20/20232023 Encounters Date Type Department Care Team Description 08/30/2024 Refill [facility] [address], [address] [place] [address] Harris Green MD Hypogonadism in male 07/06/2024 Orders Only [facility] [address], [address] [place] [address] Harris Green MD Hypogonadism in male 07/06/2024 Telephone [facility] [address] [place] [address] Tammie Abel, 06/29/2024 Orders Only [facility] [address] [place] [address] Tammie Abel, 06/22/2024 11:40 AM EDT Office Visit [facility] [address] [place] [address] Tammie Abel DO Apoplexy ([facility]/HCC) (Primary Dx); Status post transsphenoidal pituitary resection ([facility]); Hypogonadism in male; Hypothyroidism, secondary; Hyperlipidemia, unspecified hyperlipidemia type 06/22/2024 Travel 06/21/2024 12:15 PM EDT [facility] [address], [address] [place] [address] Alfredo Anderson MD Apoplexy ([facility]/HCC) (Primary Dx); Cranial neuropathy; Chronic rhinitis 06/21/2024 Travel from Last 3 Months Family History Medical History Relation Name Comments Cataracts Father Relation Name Status Comments Father Social History Tobacco Use Types Packs/Day Years Used Date Smoking Tobacco: Former Cigarettes Passive Smoke Exposure: Past Smokeless Tobacco: Never Tobacco Cessation:Counseling Given: Not Answered Alcohol Use Standard Drinks/Week Comments Not Currently [...] money to buy more. Never true 07/18/19 Within the past 12 months, t he [...] place to sleep or slept in a fdc (including now)? No 07/18/2023 CAGE ASSESSMENT Answer [...] drink first t shalom in the morning (EYE-BLADDER TIER) to steady your nerves or to get rid of a hangover? 0 07/19/2023 CAGE Questionnaire Score 0 024 Utilities Answer Date Recorded In the past 12 months has e electric, gas, oil, or water company threatened to shut off services in your home? No 07/18/2023 Sex and Gender Information Value Date Recorded Sex Assigned at Not on file Legal Sex Male 6:55 PM EDT Gender Identity Not on file Sexual Orientation Not on file Last Filed Vital Signs Vital Sign Reading Time Taken Comments Blood Pressure 131/92 06/22/2024 11:25 AM EDT Pulse 92 06/22/2024 11:25 AM EDT Temperature 36.5 C (97.7 F) 07/26/2023 12:00 PM EDT Respiratory Rate 18 10/31/2023 12:1 5 PM EDT Oxygen Saturation 96% 05/07/2024 12: 07 PM EST Inhaled Oxygen Concentration - - Weight 98.4 kg (216 lb 14.9 oz) 025 11:25 AM EDT Height 188 cm (6' 2 ) 06/21/2024 12:33 PM EDT Body Mass Index 27.85 06/21/2024 12:33 PM EDT Plan of Treatment Upcoming Encounters Date Type Department Care Team (Late st Contact Info) Description 09/21/2024 9:30 AM EDT [facility] [address], [address] [place] [address] Alfredo Anderson MD [address] [place] [address] 11/19/2024 1:20 PM EDT Appointment [facility] [address], [address] [place] [address] 11/19/2024 2:30 PM EDT [facility] [address], [address] [place] [address] Wale Uriostegui MD [address] [place] [address] 12/14/2024 11:20 AM EDT Office Visit [facility] [address] [place] [address] Paul Francisco MD [address] [place] [address] 05/20/2025 1:45 PM EST Office Visit [facility] [address] [place] [address] Terrence Quinn MD [address] [place] [address] Health Maintenance Due Date Last Done Comments [facility]-Depression Screening 1958 [facility]-Medicare Annual Wellness (AWV) 1958 [facility]-/Child/Adol SDOH Screenings 1958 [facility]- SDOH Screenings 1976 [facility]-Adult SDOH Screenings 1976 [facility]-DTaP,Tdap,and Td Vaccines (1 - Tdap) 1977 CT Colonography 2003 Colonoscopy 2003 FIT-DNA 2003 FIT 2003 FOBT 2003 Sigmoidoscopy 2003 [facility]-Colorectal Cancer Screening 2003 [facility]-Pneumococcal Vaccine: 50+ Years (1 of 1 - PCV) 2008 [facility]-Zoster Vaccines (1 of 2) 2008 [facility]-Abdominal Aortic Aneurysm (AAA) Screening 2023 [facility]-VBTQH-51 Vaccine ( - 2023- season) 2023 [facility]-Influenza Vaccine (Season Ended) 2024 [facility]-RSV Vaccine: 60+ Years or (1 - 1-dose 75+ series) 2033 [facility]-Hepatitis C Screening Completed 07/17/2023 [facility]-Obesity Intervention Completed 025, 06/21/2024, 2024, Additional history exists HPV Vaccines Aged Out No longer eligi ble based on patient's age to complete this topic [facility]-HIB Vaccines Aged Out No longer e ligible based on patient's age to complete this topic [facility]-Hepatitis A Vaccines Aged Out No longer eligible based on patient's age to complete this topic [facility]-IPV Vaccines Aged Out No longer e ligible based on patient's age to complete this topic [facility]-Rotavirus Vaccines Aged Out No lo nger eligible based on patient's age to complete this topic Medical Devices Implanted Type Area Car Dumper Operator Device Identifier Shelf Expiration Date Model / Serial / Lot Graft Dura Repair 2x2 [employer] - [id number] Implanted:Qty: 1 on 07/22/2023 by Wale Uriostegui MD at [id number] 10/28/2025 [id number] .[id number]. [id number] / / [id number] Procedures Procedure Name Priority Date/Time Associated Diagnosis Comments ALBUMIN, SERUM Routine 06/22/2024 12:13 PM EDT Status post transsphenoidal pituitary resection (CMS/HCC) Hypogonadism in male TESTOSTERONE, FREE AND TOTAL Routine 06/22/2024 12:13 PM EDT Status post transsphenoidal pituitary resection (CMS/HCC) Hypogonadism in male CBC WITH AUTO DIFFERENTIAL Routine 06/22/2024 12:13 PM EDT Status post transsphenoidal pituitary resection (CMS/HCC) Hypogonadism in male TESTOSTERONE, FREE AND TOTAL (ORDERABLE) Routine 06/22/2024 12:13 PM EDT Status post transsphenoidal pituitary resection (CMS/HCC) Hypogonadism in male FREE T4, PLASMA Routine 06/22/2024 12:13 PM EDT Hypothyroidism, secondary PROLACTIN, SERUM Routine 06/22/2024 12:1 3 PM EDT Hypogonadism in male HEPATITIS C ANTIBODY - ED W/REFLEX TO HCV QUANT PCR STAT 07/17/2023 7:59 AM EDT from Last 3 Months or Most Recently Relevant to Health Maintenance Results * Albumin, Serum (06/22/2024 12:13 PM EDT) Blood Venous blood specimen / Unknown Venipuncture / Unknown 06/22/2024 12:13 PM EDT 06/22/2024 12:13 PM EDT Tammie Abel DO LAB BLOOD ORDERABLES Final Result [facility] [address] [place] [address] * (ABNORMAL) Testosterone, Free and Total (06/22/2024 12:13 PM EDT) Testosterone Total 95.2(L) 264.0 - 916.0 ng/dL 06/25/2024 9:51 PM EDT [facility] Sex Hormone Binding Globulin 56.6 11.2 - 78.1 nmol/L 06/25/2024 9:51 PM EDT [facility] Free Testosterone - Calculated (pg/mL) 12.1(L) 34.7 - 150.3 pg/mL 06/25/2024 9:51 PM EDT [facility] Free Testosterone (%) 1.3 % 06/25/2024 9:51 PM EDT [facility] Albumin 4.5 3.5 - 5.2 g/dL 06/25/2024 9:51 PM EDT [facility] Blood Venous blood specimen / Unknown Venipuncture / Unknown 06/22/2024 12:13 PM EDT 06/22/2024 12:13 PM EDT Narrative [facility] - 06/25/2024 9:51 PM EDT Method: o SHBG: Electrochemiluminescence immunoassay o Total Testosterone: LC-MS/MS o Free T: Calculation Free testosterone concentration is calculated using total testosterone (measured by mass spectrometry) and the binding constants between testosterone, sex hormone-binding globulin (SHBG) and albumin. This test was developed and its performance characteristics determined by [facility]. It has not been cleared or approved by the FDA. The laboratory is regulated under CLIA as qualified to perform high-complexity testing. This test is used for clinical purposes. us Tammie B Abel DO LAB BLOOD ORDERABLES Final Result [facility] [address] [place] [address] * Prolactin (06/22/2024 12:13 PM EDT) [facility] Prolactin, Serum 9.7 3.4 - 15.2 ng/mL 06/22/2024 2:03 PM EDT [facility] Blood Venous blood specimen / Unknown Venipuncture / Unknown 06/22/2024 12:13 PM EDT 06/22/2024 12:13 PM EDT Narrative [facility] - 06/22/2024 2:03 PM EDT Performed by [employer] electrochemiluminescent immunoassay which is traceable to the Prolactin 3rd IRP (WHO 84/500). Results obtained with different test methods or kits cannot be used interchangeably. Tammie Abel DO LAB BLOOD ORDERABLES Final Result Performing Organization Address [facility]/ZIP Co de Phone Number [facility] [address] [place] [address] * CBC and differential (06/22/2024 12:13 PM EDT) [facility] WBC Count 6.07 3.70 - 10.30 10*3/uL LAB HEMATOLOGY METHOD 06/22/2024 2:12 PM EDT [facility] RBC Count 5.07 4.60 - 6.10 10*6/uL LAB HEMATOLOGY METHOD 06/22/2024 2:12 PM EDT [facility] HGB 15.4 13.7 - 17.5 g/dL LAB HEMATOLOGY METHOD 06/22/2024 2:12 PM EDT [facility] HCT 45.9 40.0 - 51.0 % LAB HEMATOLOGY METHOD 06/22/2024 2:12 PM EDT [facility] Platelet Count 246 155 - 369 10*3/uL LAB HEMATOLOGY METHOD 06/22/2024 2:12 PM EDT [facility] MCV 91 79 - 98 fL LAB HEMATOLOGY METHOD 06/22/2024 2:12 PM EDT [facility] MCH 30.4 26.0 - 32.0 pg LAB HEMATOLOGY METHOD 06/22/2024 2:12 PM EDT [facility] MCHC 33.6 30.7 - 35.5 g/dL LAB HEMATOLOGY METHOD 06/22/2024 2:12 PM EDT [facility] RDW 12.4 11.5 - 14.5 % LAB HEMATOLOGY METHOD 06/22/2024 2:12 PM EDT [facility] MPV 10.5 8.8 - 12.5 fL LAB HEMATOLOGY METHOD 06/22/2024 2:12 PM EDT [facility] nRBC 0.0 <=0.0 per 100 WBCs LAB HEMATOLOGY METHOD 06/22/2024 2:12 PM EDT [facility] Differential Type Automated LAB HEMATOLOGY METHOD 06/22/2024 2:12 PM EDT [facility] Neutrophils % 48 % LAB HEMATOLOGY METHOD 06/22/2024 2:12 PM EDT [facility] Lymphocytes % 33 % LAB HEMATOLOGY METHOD 06/22/2024 2:12 PM EDT [facility] Monocytes % 10 % LAB HEMATOLOGY METHOD 06/22/2024 2:12 PM EDT [facility] Eosinophils % 7 % LAB HEMATOLOGY METHOD 06/22/2024 2:12 PM EDT [facility] Basophils % 2 % LAB HEMATOLOGY METHOD 06/22/2024 2:12 PM EDT [facility] Immature Granulocytes % 0 % LAB HEMATOLOGY METHOD 06/22/2024 2:12 PM EDT [facility] Neutrophils Absolute 2.94 1.60 - 6.10 10*3/uL LAB HEMATOLOGY METHOD 06/22/2024 2:12 PM EDT [facility] Lymphocytes Absolute 1.99 1.20 - 3.90 10*3/uL LAB HEMATOLOGY METHOD 06/22/2024 2:12 PM EDT [facility] Monocytes Absolute 0.62 0.30 - 0.90 10*3/uL LAB HEMATOLOGY METHOD 06/22/2024 2:12 PM EDT [facility] Eosinophils Absolute 0.42 0.00 - 0.50 10*3/uL LAB HEMATOLOGY METHOD 06/22/2024 2:12 PM EDT [facility] Basophils Absolute 0.09 0.00 - 0.10 10*3/uL LAB HEMATOLOGY METHOD 06/22/2024 2:12 PM EDT [facility] Immature Granulocytes Absolute 0.01 0.00 - 0.06 10*3/uL LAB HEMATOLOGY METHOD 06/22/2024 2:12 PM EDT [facility] Blood Venous blood specimen / Unknown Venipuncture / Unknown 06/22/2024 12:13 PM EDT 06/22/2024 12:13 PM EDT Narrative [facility] - 06/22/2024 2:12 PM EDT Therapeutic decision making should be based on absolute values, rather than percentages. Tammie Abel DO LAB BLOOD ORDERABLES Final Result Performing Organization Address City/[facility]/ZIP Co de Phone Number [facility] [address] [place] [address] * T4, free (06/22/2024 12:13 PM EDT) Free T4, Plasma 0.8 0.8 - 1.7 ng/dL 06/22/2024 2:09 PM EDT [facility] Blood Venous blood specimen / Unknown Venipuncture / Unknown 06/22/2024 12:13 PM EDT 06/22/2024 12:13 PM EDT Tammie Abel DO LAB BLOOD ORDERABLES Final Result Performing Organization Address City/[facility] Co de Phone Number [facility] [address] [place] [address] * Hepatitis C Antibody - ED (07/17/2023 7:59 AM EDT) Hepatitis C Antibody Negative Negative 07/17/2023 9:17 AM EDT [facility] Blood Venous blood specimen / Unknown Venipuncture / Unknown 07/17/2023 7:59 AM EDT 07/17/2023 8:14 AM EDT us Maria Guadalupe Barth APRN LAB BLOOD ORDERABLES Final Result Performing Organization Address City/[facility]/ZIP Co de Phone Number [facility] [address] [place] [address] from Last 3 Months or Most Recently Relevant to Health Maintenance Additional Health Concerns Infection Onset Date Last Indicated 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 Yes Care Teams Radiological Technologist Relationship Specialty Start Date End Date Terrence Balderas DO [address] [place] [address] PCP - General 10/31/23 Michael Lopez MD [address] [place] [address] 07/17/23
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
--- OUTSIDE RECORDS SUMMARY | 2024-09-06 09:28 | XMS_ITS | Encounter Summary ---
Author Organization Healthcare Address [address] [place] [address] Care Team Providers Care Community Engagement Representative Name Role Phone Pcp, No Primary Care Provider UnavailMichael Crockett MD Unavailable [phone] Terrence Balderas DO Primary Care Provider [phone] Encounter Details Date Type Department Care Team (Late st Contact Info) Description 07/21/2023 Ophth Exam [facility] [address] [place] [address] Ryan Romero MD [address] [id number] Social History Tobacco Use Types Packs/Day Years [...] place to sleep or slept in a jail (including now)? No 07/18/2023 CAGE ASSESSMENT Answer [...] drink first t shalom in the morning (EYE-MEDICAL BILLER) to steady your nerves or to get rid of a hangover? 0 07/19/2023 CAGE Questionnaire Score 0 024 Utilities Answer Date Recorded In the past 12 months has th e [employer], gas, oil, or water company threatened to [...] Date of Assessment Author No Risk Indicated 07/24/2023 8:00 PM EDT Justine Hui RN * Question Answer Date of Assessment Author 1. Wish to be (Past 1 Month) No 024 8:00 PM EDT Justine Hui, MILLER 2. Non-Specific Active Suici nishi Thoughts (Past 1 Month) No 07/24/2023 8:00 PM EDT Yovany Hui RN 6. Suicidal Behavior (Lifetime) No 8:00 PM EDT Justine Hui RN documented as of this encounter Plan of Treatment Upcoming Encounters Date Type Department Care Team (Late st Contact Info) Description 09/21/2024 9:30 AM EDT Office Visit [facility] Otolaryngology [address] [place] [address] Alfredo Anderson MD [address] [place] [address] 11/19/2024 1:20 PM EDT Appointment [facility] [address], [address] [place] [address] 11/19/2024 2:30 PM EDT Office Visit [facility] [address], [address] [place] [address] Wale Uriostegui MD [address] [place] [address] 12/14/2024 11:20 AM EDT [facility] Visit [facility] [address] [place] [address] Paul Francisco MD [address] [place] [address] 05/20/2025 1:45 PM EST Office Visit [facility] [address] [place] [address] Terrence Quinn MD [address] [place] [address] documented as of this encounter Visit Diagnoses Not on filedocumented in this encounter Additional Health Concerns Infection [...] documented as of this encounter Care Teams Community Engagement Representative Relationship Specialty Start Date End Date Pcp, [place] [address] PCP - General Family Medicine 07/17/23 10/30/23 Terrence Balderas DO [address] [place] [address] PCP - General 10/31/23 Michael Lopez MD [address] [place] [address] 07/17/23 documented as of this encounter
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
--- OUTSIDE RECORDS SUMMARY | 2024-09-06 09:28 | XMS_ITS | Encounter Summary ---
Author Organization [facility] Address [address] [place] [address] Care Team Providers Care Bench Worker Binding Name Role Phone Michael Lopez MD Unavailable [phone] Terrence Balderas DO Primary Care Provider [phone] Reason for Visit * Reason Comments Med Refill Encounter Details Date Type Department Care Team (Late st Contact Info) Description 08/30/2024 Refill [facility] [address], [address] [place] [address] [facility] [address] [place] [address] Hypogonadism in male Social History Tobacco Use Types Packs/Day Years Used Date Smoking Tobacco: Former Cigarettes Passive Smoke Exposure: Past Smokeless Tobacco: Never Alcohol Use Standard Drinks/Week [...] place to sleep or slept in a long-term (including now)? 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 0 07/19/2023 CAGE Questionnaire Score 0 024 Utilities Answer Date Recorded In the past 12 months has th e [employer], gas, oil, or water company threatened to [...] Description 09/21/2024 9:30 AM EDT Office [facility] [address], [address] [place] [address] Alfredo Anderson MD [address] [place] [address] 11/19/2024 1:20 PM EDT Appointment [facility] [address] [place] [address] 11/19/2024 2:30 PM EDT [facility] Visit [facility] [address] [place] [address] Wale Uriostegui MD [address] [place] [address] 12/14/2024 11:20 AM EDT Office Visit Jessica Dave [facility] Endocrinology [address] [place] [id number] Paul Francisco MD [address] [place] [address] 05/20/2025 1:45 PM EST Office Visit [facility] [address] [place] [address] Terrence Quinn MD [address] [place] [address] documented as of this encounter Visit Diagnoses Diagnosis Hypogonadism in male documented in this encounter Additional Health Concerns Infection Onset Date Last Indicated Resolved Time 

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
--- NOTE | 2024-09-06 09:37 | EXP.PAIN.SOA ---
[facility] Disclaimer: The information contained in this section may have been updated after the patient was seen, as this information can be updated by other users. 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 Today he rates his left hip pain a 2 out of 10. He does deny any recent falls or injuries. He states overall this is doing pretty good except when he does do a lot more activity it does increase but still feels like his last intra-articular hip injection is helping. This was done in June and did provide 80%. He does however make mention today that he is still having more shoulder related pain and that this is fairly constant and is interfering with his ability perform activities of daily living such as cooking and cleaning. He rates that pain a 5 out of 10. Patient has had this pain for longer than 2 years and did see a provider about this pain in the past however at that time they were wanting to get improvement with the hip before proceeding forward with the shoulders. He describes it as a constant aching sensation with occasional sharp shooting pains with certain movements. He does feel like he has very limited range of motion. Patient is asking if we can see about injections for this. His Bobby was unavailable for viewing today. Review of Systems: General: No recent weight changes, no fever, no sleep disturbances Respiratory: No cough, no shortness of air, no recurring pulmonary infections Cardiovascular/peripheral vascular: No chest pain, no palpitations, no edema, no shortness of breath Gastrointestinal: No new onset incontinence, normal bowel movements reported Genitourinary: No new onset incontinence Musculoskeletal: Bilateral shoulder pain Psychiatric: [Normal mood/affect] Neurological: [Denies weakness in extremities], [denies balance issues] Pain at rest (0-10 scale): 5 Objective Objective:: Physical Exam: General: Alert and oriented x3, no acute distress, pleasant and cooperative Lungs: Respirations even and unlabored, symmetrical chest expansion Eyes: PERRL Musculoskeletal: Flexion and extension of bilateral shoulders somewhat guarded secondary to pain Neurological: Speech clear, no gross sensory deficit Has patient had previous pain injection?: No Conservative treatment options previously tried: Home exercise plan Length of treatment: Longer than 12 weeks Meds Home Medications and Allergies Home Medications ?Medication ?Instructions ?Recorded ?Confirmed ?Type levothyroxine 50 mcg tablet 50 mcg PO DAILY THYROID 09/09/23 07/26/24 History oxycodone 5 mg tablet 5 mg PO BID PRN pain 30 days #60 10/08/23 07/26/24 Rx tabs atorvastatin 10 mg tablet See Rx Instructions .Route 12/04/23 07/26/24 Rx .COMPLEX #90 tabs baclofen 10 mg tablet 10 mg PO BID #28 tabs 04/07/24 07/26/24 Rx New Prescriptions to Start Prescriptions: Allergies Allergy/AdvReac Type Severity Reaction Status Date / Time No Known Allergies Allergy Verified 11/11/23 10:01 Assessment and Plan *Assessment and plan (1) Bilateral shoulder pain: Status: Acute Category: Medical Code(s): M25.511 - Pain in right shoulder; M25.512 - Pain in left shoulder Plan Patient is experiencing worsening pain in his bilateral shoulders with limited range of motion. Patient has had this pain for longer than 2 years and has seen an orthopedic provider who was not recommending surgical intervention. Patient has tried and failed conservative therapy including oral medications, heat and ice, topicals, at home stretching and exercise for longer than 12 weeks. Patient denies any previous shoulder surgery. I did discuss with him that I do believe he would benefit most from bilateral intra-articular shoulder injections. Risk and benefits were discussed with the patient and he would like to proceed forward with this plan of care. Patient does not have any previous injections in the shoulders to compare for improvement percentage. We will follow-up with this in the future. Patient will be scheduled for bilateral shoulder intra-articular injections. These will be done without fluoroscopic or ultrasound guidance. Patient has been instructed to contact the clinic with any concerns before the next appointment. Dr. De La Torre has reviewed this note and agrees with this plan of care. This note was dictated using voice recognition software and make contain errors or omissions. All injections are used with Lidocaine, Bupivacaine and dexamethasone. Occasionally urine drug screen is needed to verify patient's compliance with our office pain contract. This is ordered based off specific treatments related to chronic pain with the potential to abuse certain medications.
[2024-09-06 09:53] VITALS: BP 140/88; PULSE 68; RESP 18; O2SAT 98; BMI 26.4
== END 2024-09-06 23:59 | disposition home or self-care (01) ==
LOC: SC.PAIN 09:24
PROVIDERS: PCP Family Medicine; Visit Provider Nurse Practitioner Family
DX: M25.511 Pain in right shoulder (principal); M25.512 Pain in left shoulder
CPT/HCPCS: 99212; G0463

== ENCOUNTER 2024-10-05 09:15 | Day surgery (SDC) | payer MEDICARE, MEDICAID, SELFPAY ==
--- OUTSIDE RECORDS SUMMARY | 2024-09-21 09:30 | XMS_ITS | Encounter Summary ---
Author Organization Healthcare Address [address] [place] [address] Care Team Providers Care Quiller Tender Name Role Phone Michael Lopez MD Unavailable [phone] Rick Brandt MD Primary Care Provider [phone] Reason for Visit * Reason Comments Follow-up Encounter Details Date Type Department Care Team (Late st Contact Info) Description 09/21/2024 9:30 AM EDT [facility] [address], [address]rd [place] [address] Alfredo Anderson MD [address] [place] [address] Apoplexy (CMS/HCC) (Primary Dx); Chronic [...] place to sleep or slept in a custodial (including now)? No 07/18/2023 CAGE ASSESSMENT Answer [...] drink first t shalom in the morning (EYE-MRI CT TECH) to steady your nerves or to get rid of a hangover? 0 07/19/2023 CAGE Questionnaire Score 0 024 Utilities Answer Date Recorded In the past 12 months has th e [employer], gas, oil, or water company threatened to [...] Care Team (Late st Contact Info) Description 10/19/2024 9:30 AM EDT Office [facility] Audiology [address], [address] [place] [address] Beatriz Ly, AuD [address] [place] [address] 10/19/2024 10:00 AM EDT Consult [facility] Otolaryngology [address], [address] [place] [address] Stephen Dubose MD [address] [place] [address] 11/19/2024 1:20 PM EDT Appointment [facility] [address], [address]st [place] [address] 11/19/2024 2:30 PM EDT Office Visit [facility] [address], [address] [place] [address] Wale Uriostegui MD [address] [place] [address] 12/14/2024 11:20 AM EDT Office Visit [facility] Endocrinology [address] [place] [address] Paul Francisco MD [address] [place] [address] 12/22/2024 9:30 AM EDT [facility] [address], [address] [place] [address] Alfredo Anderson MD [address] [place] [address] 05/20/2025 1:45 PM EST Office Visit [facility] [address] [place] [address] Terrence Quinn MD [address] [place] [address] documented as of this encounter Visit Diagnoses Diagnosis Apoplexy (CMS/HCC)- Primary Acute, but ill-defined, cerebrovascular disease Chronic rhinitis documented in this encounter Additional Health Concerns Infection Onset Date Last Indicated Resolved Time Kelly Auris Comment:Patient has alternative record with ali and 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
--- OUTSIDE RECORDS SUMMARY | 2024-10-05 09:18 | XMS_ITS | Clinical Summary ---
Author Organization [employer] ([place], [place], [place], [place]) Address [address] [place] [address] Care Team Providers Care Account Supervisor Name Role Phone Unavailable Primary Care Provider Unavailabl e Social History Tobacco Use Types Packs/Day Years Used Date Smoking Tobacco: Never Assessed Sex and Gender Information Value Date Recorded Sex Assigned at Male 03/19/2024 9:50 AM CLERK TRAVEL RESERVATIONS Legal Sex Male 9:50 AM CLERK TRAVEL RESERVATIONS Gender Identity Male 03/19/2024 9:50 AM CLERK TRAVEL RESERVATIONS Sexual Orientation Not on file Plan of Treatment Not on file
--- OUTSIDE RECORDS SUMMARY | 2024-10-05 09:18 | XMS_ITS | Encounter Summary ---
Author Organization [employer] ([place], [place], [place], [place]) Address [address] [place] [address] Care Team Providers Care Area Cleaner Name Role Phone Unavailable Primary Care Provider Unavailabl e Encounter Details Date Type Department Care Team (Late st Contact Info) Description 09/29/2021 Transcribed Document [facility] [place] [address] [place] [address] ProviderJoyce MD [address] [place], [place] [id number] Social History Tobacco Use Types Packs/Day Years Used Date Smoking Tobacco: Never Assessed Sex and Gender Information Value Date Recorded Sex Assigned at Male 03/19/2024 9:50 AM LIBRARY CUSTOMER SERVICE CLERK Legal Sex Male 9:50 AM LIBRARY CUSTOMER SERVICE CLERK Gender Identity Male 03/19/2024 9:50 AM LIBRARY CUSTOMER SERVICE CLERK Sexual Orientation Not on file documented as of this encounter Miscellaneous Notes * Cerner Conversion Note - Joyce ProviderMD - 09/29/2021 8:45 PM CDT ED [...]
--- OUTSIDE RECORDS SUMMARY | 2024-10-05 09:18 | XMS_ITS | Encounter Summary ---
Author Organization [employer] ([place], [place], [place], [place]) Address [address] [place] [address] Care Team Providers Care Wallpaper Printer Helper Name Role Phone Unavailable Primary Care Provider Unavailabl e Encounter Details Date Type Department Care Team (Late st Contact Info) Description 09/29/2021 Transcribed Document [facility] [facility] [place] [address] ProviderJoyce MD [facility] [place] [address] Social History Tobacco Use Types Packs/Day Years Used Date Smoking Tobacco: Never Assessed Sex and Gender Information Value Date Recorded Sex Assigned at Male 03/19/2024 9:50 AM AUTO TOP MECHANIC Legal Sex Male 9:50 AM AUTO TOP MECHANIC Gender Identity Male 03/19/2024 9:50 AM AUTO TOP MECHANIC Sexual Orientation Not on file documented as of this encounter Miscellaneous Notes * Cerner Conversion Note - Joyce Brown MD - 09/29/2021 8:44 PM CDT ED Discharge [...] ([place]) Diastolic Blood Pressure : 86 mmHg Maiy Jones RN-PATIENT CARE BEDSIDE NON-EXEMPT - 09/29/2021 20:44 EDT documented in this encounter Plan of Treatment Not on file documented as of this encounter Visit Diagnoses Not on filedocumented in this encounter
--- OUTSIDE RECORDS SUMMARY | 2024-10-05 09:18 | XMS_ITS | Encounter Summary ---
Author Organization Healthcare Address [address] [place] [address] Care Team Providers Care Hand Mixer Name Role Phone Michael Lopez MD Primary Care Provider [phone] Pcp, No Primary Care Provider Unavailabl e Michael Lopez MD Unavailable [phone] Terrence Balderas DO Primary Care Provider [phone] Rick Brandt MD Primary Care Provider [phone] Reason for Referral * Consultation (Routine) - Closed Specialty Diagnoses / Procedures Referred By Contac t Referred To Contact Neurosurgery Diagnoses Cervical nerve root impingement Cervical osteophyte Lumbar nerve root impingement Lumbar foraminal stenosis Michael Lopez MD [address] [place] [address] Phone: tel: fax: Referral ID Status Reason Start Date Expiration Date V isits Requested Visits Authorized [id number] Closed Specialty Services Required 11/02/2021 05/04/2023 1 1 Encounter Details Date Type Department Care Team (Late st Contact Info) Description 11/02/2021 Community [facility] [address] [place] [address] Michael Lopez MD [address] [place] [address] Cervical nerve root impingement (Primary Dx); [...] Description 10/19/2024 9:30 AM EDT Office Visit [facility] Audiology [address], [address]rd [place] [address] Beatriz Ly, Evaristo [address] [place] [address] 10/19/2024 10:[address] [facility] Otolaryngology [address], [address] [place] [address] Stephen Dubose MD [address] [place] [address] 11/19/2024 1:20 PM EDT Appointment [facility] [address]st [place] [address] 11/19/2024 2:30 PM EDT Office Visit [facility] [address] [place] [address] Wale Uriostegui MD [address] [place] [address] 12/14/2024 11:20 AM EDT Office Visit [facility] Endocrinology [address] [place] [address] Paul Francisco MD [address] [place] [address] 12/22/2024 9:30 AM EDT [facility] [address] [place] [address] Alfredo Anderson MD [address] [place] [address] 05/20/2025 1:45 PM EST Office Visit [facility] [address] [place] [address] Terrence Quinn MD [address] [place] [address] Scheduled Referrals Name Type Priority [...] AM EDT Meningitis Rule-Out 07/17/2023 07/17/2023 07/17/19 24 10:35 AM EDT Kelly Auris Comment:Duplicate infection 07/23/2023 07/23/2023 07/30/2023 1 :24 PM EDT Kelly Auris Comment:Patient has alternative record with alias and 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
--- OUTSIDE RECORDS SUMMARY | 2024-10-05 09:18 | XMS_ITS | Encounter Summary ---
Author Organization [employer] ([place], [place], [place], [place]) Address [address] [place] [address] Care Team Providers Care Manager Universal Name Role Phone Unavailable Primary Care Provider Unavailabl e Encounter Details Date Type Department Care Team (Late st Contact Info) Description 10/01/2021 Transcribed Document [facility] [place] [facility] [place] [address] ProviderJoyce [place] [address] Social History Tobacco Use Types Packs/Day Years Used Date Smoking Tobacco: Never Assessed Sex and Gender Information Value Date Recorded Sex Assigned at Male 03/19/2024 9:50 AM FARM PLANNER Legal Sex Male 9:50 AM FARM PLANNER Gender Identity Male 03/19/2024 9:50 AM FARM PLANNER Sexual Orientation Not on file documented as [...]
--- OUTSIDE RECORDS SUMMARY | 2024-10-05 09:18 | XMS_ITS | Encounter Summary ---
Author Organization Healthcare Address [address] [place] [address] Care Team Providers Care Well Blower Name Role Phone Pcp, No Primary Care Provider Unavailabl e Michael Lopez MD Unavailable [phone] Terrence Balderas DO Primary Care Provider [phone] Rick Brandt MD Primary Care Provider [phone] Encounter Details Date Type Department Care Team (Late st Contact Info) Description 07/21/2023 Ophth Exam [facility] [address] [place] [address] Ryan Romero MD [address] [place] [address] Social History Tobacco Use Types Packs/Day Years [...] place to sleep or slept in a penitentiary (including now)? No 07/18/2023 CAGE ASSESSMENT Answer [...] drink first t shalom in the morning (EYE-RESIDENT CARE ASSOCIATE) to steady your nerves or to get [...] Month) No 024 8:00 PM EDT Justine Hui RN 2. Non-Specific Active Suici nishi Thoughts (Past 1 Month) No 07/24/2023 8:00 PM EDT Yovany Hui RN 6. Suicidal Behavior (Lifetime) No 8:00 PM EDT Justine Hui RN documented as of this encounter Plan of Treatment Upcoming Encounters Date Type Department Care Team (Late st Contact Info) Description 10/19/2024 9:30 AM EDT Office Visit [facility] Audiology [address]rd [place] [address] Beatriz Ly, Evaristo [address] [place] [address] 10/19/2024 10:00 AM EDT Consult [facility] Otolaryngology [address]rd [place] [address] Stephen Dubose MD [address] [place] [address] 11/19/2024 1:20 PM EDT Appointment [facility] [address], [address]st [place] [address] 11/19/2024 2:30 PM EDT Office Visit [facility] [address], [address] [place] [address] Wale Uriostegui MD [address] [place] [address] 12/14/2024 11:20 AM EDT Office Visit [facility] Endocrinology [address] [place] [address] Paul Francisco MD [address] [place] [address] 12/22/2024 9:30 AM EDT [facility] [address] [place] [address] Alfredo Anderson MD [address] [place] [address] 05/20/2025 1:45 PM EST Office Visit [facility] [address] [place] [address] Terrence Quinn MD [address] [place] [address] documented as of this encounter [...] documented as of this encounter Care Teams Well Blower Relationship Specialty Start Date End Date Pcp, Cara [address] [place] [address] PCP - General Family Medicine 07/17/23 10/30/23 Terrence Balderas DO [address] [place] [address] PCP - General 10/31/23 09/20/24 Rick Brandt MD [address] [place] [address] PCP - General 09/21/24 Michael Lopez MD [address] [place] [address] 07/17/23 documented as of this encounter
--- OUTSIDE RECORDS SUMMARY | 2024-10-05 09:18 | XMS_ITS | Encounter Summary ---
Author Organization [employer] ([place], [place], [place], [place]) Address [address] [place] [address] Care Team Providers Care Public Transit Bus Driver Name Role Phone Unavailable Primary Care Provider Unavailabl e Encounter Details Date Type Department Care Team (Late st Contact Info) Description 09/29/2021 Transcribed Document [facility] [place] [facility] [place] [address] ProviderJoyce MD [facility] [place] [id number] Social History Tobacco Use Types Packs/Day Years Used Date Smoking Tobacco: Never Assessed Sex and Gender Information Value Date Recorded Sex Assigned at Male 03/19/2024 9:50 AM TICKET CLERK Legal Sex Male 9:50 AM TICKET CLERK Gender Identity Male 03/19/2024 9:50 AM TICKET CLERK Sexual Orientation Not on file documented as of this encounter Miscellaneous Notes * Cerner Conversion Note - Historical ProviderMD - 09/29/2021 8:26 PM CDT Electronically signed by [facility] Conversion Supervisor Powder [employer] Canning Eliceo at 07/15/2022 11:29 AM CDT documented in this encounter Plan of Treatment Not on file documented as of this encounter Visit Diagnoses Not on filedocumented in this encounter
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
--- OUTSIDE RECORDS SUMMARY | 2024-10-05 09:18 | XMS_ITS | Referral Summary ---
Author Organization [employer] ([place], [place], [place], [place]) Address [address] [place] [address] Care Team Providers Care Race Steward Name Role Phone Unavailable Primary Care Provider Unavailabl e Social History Tobacco Use Types Packs/Day Years Used Date Smoking Tobacco: Never Assessed Sex and Gender Information Value Date Recorded Sex Assigned at Male 03/19/2024 9:50 AM LOAN DOCUMENTATION SPECIALIST Legal Sex Male 9:50 AM LOAN DOCUMENTATION SPECIALIST Gender Identity Male 03/19/2024 9:50 AM LOAN DOCUMENTATION SPECIALIST Sexual Orientation Not on file Plan of Treatment Not on file
--- OUTSIDE RECORDS SUMMARY | 2024-10-05 09:18 | XMS_ITS | Encounter Summary ---
Author Organization Healthcare Address [address] [place] [address] Care Team Providers Care Rehabilitation Technician Name Role Phone Michael Lopez MD Unavailable [phone] Terrence Balderas DO Primary Care Provider Reason for Visit * Reason Onset Date Comments Prior-authorization/insurance Verification 09/07 Encounter Details Date Type Department Care Team (Late st Contact Info) Description 09/07/2024 Telephone [facility] Endocrinology [address] [place] [address] Tammie Abel DO [address] [facility] [address] [place] [address] Prior-authorization/in surance Verification Social History Tobacco Use Types Packs/Day Years [...] place to sleep or slept in a prison (including now)? No 07/18/2023 CAGE ASSESSMENT Answer [...] drink first t shalom in the morning (EYE-CORPORATE SECURITY OFFICER) to steady your nerves or to get rid of a hangover? 0 07/19/2023 CAGE Questionnaire Score 0 024 Utilities Answer Date Recorded In the past 12 months has th e [employer], gas, oil, or water company threatened to shut off services in your home? No 07/18/2023 Sex and Gender Information Value Date Recorded Sex Assigned at Not on file Legal Sex Male 6:55 PM EDT Gender Identity Not on file Sexual Orientation Not on file documented as of this encounter Miscellaneous Notes * Telephone Encounter - Wilma Enriquez RN - 09/10/2024 9:54 AM EDT Contacted patient regarding approval for Testosterone and he may pick script up from Pharmacy Lexy Enriquez RN ] * Telephone Encounter - Katiana Cash - 09/07/2024 4:20 PM EDT Images from the original note were not included. Prior authorization requested for Testosterone 20.25 MG/ACT (1.62%) Gel ordered by Tammie Abel MD. documented in this encounter Plan of Treatment Upcoming Encounters Date Type Department Care Team (Late st Contact Info) Description 10/19/2024 9:30 AM EDT Office Visit [facility] Audiology [address], [address]rd [place] [address] Beatriz Ly AuD [address] [place] [address] 10/19/2024 10:00 AM EDT Consult [facility] Otolaryngology [address], 3rd [place] [address] Stephen Dubose MD [address] [place] [address] 11/19/2024 1:20 PM EDT Appointment [facility] Radiology [address], 1st [place] [address] 11/19/2024 2:30 PM EDT [facility] [address], 1st [place] [address] Wale Uriostegui MD [address] [place] [address] 12/14/2024 11:20 AM EDT Office Visit [facility] Endocrinology [address] [place] [address] Paul Francisco MD [address] [place] [address] 12/22/2024 9:30 AM EDT [facility] Otol[facility]ology [address], 3rd [place] [address] Alfredo Anderson MD [address] [place] [address] 05/20/2025 1:45 PM EST Office Visit [facility] [address] [place] [address] Terrence Quinn MD [address] [place] [address] documented as of this [...] documented as of this encounter Care Teams Rehabilitation Technician Relationship Specialty Start Date End Date Terrence Balderas DO [address] [place] [address] PCP - General 10/31/23 09/20/24 Michael Lopez MD [address] [place] [address] 07/17/23 documented as of this encounter
--- OUTSIDE RECORDS SUMMARY | 2024-10-05 09:18 | XMS_ITS | Encounter Summary ---
Author Organization Healthcare Address [address] [place] [address] Care Team Providers Care Eye Clinic Manager Name Role Phone Michael Lopez MD Unavailable Rick Brandt MD Primary Care Provider [phone] Encounter Details Date Type Department Care Team (Latest Contact Info) Description 09/21/2024 Travel Social History Tobacco Use Types Packs/Day Years [...] place to sleep or slept in a long term (including now)? No 07/18/2023 CAGE ASSESSMENT Answer [...] drink first t shalom in the morning (EYE-DEBRIDGING MACHINE OPERATOR) to steady your nerves or to get [...] Description 10/19/2024 9:30 AM EDT Office Visit [facility] Audiology [address], 3rd [place] [phone] Beatriz Ly, AuD [address] [place] [address] 10/19/2024 10:00 AM EDT Consult [facility] Otolaryngology [address], 3rd [place] [address] Stephen Dubose MD [address] [place] [address] 11/19/2024 1:20 PM EDT Appointment [facility] [address], 1st [place] [address] 11/19/2024 2:30 PM EDT Office Visit [facility] [address], [address] [place] [address] Wale Uriostegui MD [address] [place] [address] 12/14/2024 11:20 AM EDT Office Visit [facility] Endocrinology [address] [place] [address] Paul Francisco MD [address] [place] [address] 12/22/2024 9:30 AM EDT Office Visit [facility] Otolaryngology [address], 3[address] [place] [address] Alfredo Anderson MD [address] [place] [address] 05/20/2025 1:45 PM EST Office Visit [facility] Care [address] [facility] [place] [address] Terrence Quinn MD [address] [phone] documented as of this encounter Visit Diagnoses [...] documented as of this encounter Care Teams Eye Clinic Manager Relationship Specialty Start Date End Date Rick Brandt MD [address] [place] [address] PCP - General 09/21/24 Michael Lopez MD [address] [place] [address] 07/17/23 documented as of this encounter
--- OUTSIDE RECORDS SUMMARY | 2024-10-05 09:18 | XMS_ITS | Encounter Summary ---
Author Organization Healthcare Address [address] [place] [address] Care Team Providers Care Station Examiner Name Role Phone Michael Lopez MD Unavailable [phone] Terrence Balderas DO Primary Care Provider [phone] Encounter Details Date Type Department Care Team (Late st Contact Info) Description 09/07/2024 Telephone [facility] Endocrinology [address] [place] [address] Tammie Abel DO 2[address] [facility] [address] [place] [address] Social History Tobacco Use Types Packs/Day Years [...] place to sleep or slept in a [place] (including now)? No 07/18/2023 CAGE ASSESSMENT Answer [...] drink first t shalom in the morning (EYE-SENIOR DATA DEVELOPER) to steady your nerves or to get rid of a hangover? 0 07/19/2023 CAGE Questionnaire Score 0 024 Utilities Answer Date Recorded In the past 12 months has th e [employer], gas, oil, or water company threatened to shut off services in your home? No 07/18/2023 Sex and Gender Information Value Date Recorded Sex Assigned at Not on file Legal Sex Male 6:55 PM EDT Gender Identity Not on file Sexual Orientation Not on file documented as of this encounter Miscellaneous Notes * Telephone Encounter - Tammie Abel DO - 09/07/2024 2:28 PM EDT Received refill request for Testosterone. He had one month supply sent in by Dr. Green in June and was filled on 07/30. Had to perform manual AVIVA request #[id number] and was appropriate. I have sent in 1 month supply and must have labs completed next month for further refills. documented in this encounter Plan of Treatment Upcoming Encounters Date Type Department Care Team (Late st Contact Info) Description 10/19/2024 9:30 AM EDT Office Visit [facility] Audiology [address], 3rd [place] [address] Beatriz Ly, Evaristo [address] [facility] [address] [place] [address] 10/19/2024 10:00 AM EDT Consult [facility] Otolaryngology [address], 3rd [place] [address] Stephen Dubose MD [address] [place] [address] 11/19/2024 1:20 PM EDT Appointment [facility] [address], 1st [place] [address] 11/19/2024 2:30 PM EDT Office Visit [facility] [address], 1st [place] [address] Wale Uriostegui MD [address] [place] [address] 12/14/2024 11:20 AM EDT Office [facility] Endocrinology [address] [place] [address] Paul Francisco MD [address] [place] [address] 12/22/2024 9:30 AM EDT [facility] Ot[facility]ology [address], 3rd [place] [address] Alfredo Anderson MD [address] [place] [address] 05/20/2025 1:45 PM EST Office Visit [facility] Eye Care [address] [facility] [place] [address] Terrence Quinn MD [address] [place] [address] Scheduled Orders Name Type Priority Associated Diagnoses Orde r Schedule Prostate Cancer Screen, PSA Total Lab Routine Hypogonadism in male Expected: 09/28/2024 (Approximate), Expires: 03/11/2026 documented as of this encounter Visit Diagnoses Diagnosis Hypogonadism in male- Primary documented in this encounter Additional Health Concerns [...] documented as of this encounter Care Teams Station Examiner Relationship Specialty Start Date End Date Terrence Balderas DO [address] [place] [address] PCP - General 10/31/23 09/20/24 Michael Lopez MD [address] [id number] 07/17/23 documented as of this encounter
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
--- OUTSIDE RECORDS SUMMARY | 2024-10-05 09:18 | XMS_ITS | Clinical Summary ---
Author Organization [facility] Address [address] [place] [address] Care Team Providers Care Contact Worker Name Role Phone Unavailable Primary Care [...]
--- OUTSIDE RECORDS SUMMARY | 2024-10-05 09:18 | XMS_ITS | Encounter Summary ---
Author Organization Healthcare Address [address] [place] [address] Care Team Providers Care Director Of Managed Care Name Role Phone Michael Lopez MD Unavailable [phone] Terrence Balderas DO Primary Care Provider [phone] Reason for Visit * Reason Comments Med Refill Encounter Details Date Type Department Care Team (Late st Contact Info) Description 08/30/2024 Refill [facility] [address], [address] [place] [address] Harris Green MD [address] [facility] [address] [place] [address] Hypogonadism in male Social History [...] place to sleep or slept in a correction (including now)? No 07/18/2023 CAGE ASSESSMENT Answer [...] drink first t shalom in the morning (EYE-HYDRAULIC MECHANIC) to steady your nerves or to get rid of a hangover? 0 07/19/2023 CAGE Questionnaire Score 0 024 Utilities Answer Date Recorded In the past 12 months has th e [employer], gas, oil, or water company threatened to [...] 10/19/2024 9:30 AM EDT Office Visit [facility] Audiology [address], 3rd [place] [address] Beatriz Ly, AuD [address] [place] [address] 10/19/2024 10:00 AM EDT Consult [facility] Otolaryngology [address], [address]rd [place] [address] Stephen Dubose MD [address] [facility] [address] [place] [address] 11/19/2024 1:20 PM EDT Appointment [facility]iology [address], 1st [place] [address] 11/19/2024 2:30 PM EDT [facility] [address], 1st [place] [address] Wale Uriostegui MD [address] [facility] [address] [place] [address] 12/14/2024 11:20 AM EDT Office Visit [facility] Endocrinology [address] [place] [address] Paul Francisco MD [address] [place] [address] 12/22/2024 9:30 AM EDT Office Visit [facility] Otolaryngology [address], 3rd [place] [address] Alfredo Anderson MD [address] [place] [address] 05/20/2025 1:45 PM EST Office Visit [facility] [address] [place] [address] Terrence Quinn MD [address] [place] [address] documented as of this encounter [...] documented as of this encounter Care Teams Director Of Managed Care Relationship Specialty Start Date End Date Terrence Balderas DO [address] [place] [address] PCP - General 10/31/23 09/20/24 Michael Lopez MD [address] [place] [address] 07/17/23 documented as of this encounter
--- OUTSIDE RECORDS SUMMARY | 2024-10-05 09:18 | XMS_ITS | Clinical Summary ---
Author Organization Healthcare Address [address] [place] [address] Care Team Providers Care Garnett Room Worker Name Role Phone Michael Lopez MD Unavailable [phone] Rick Brandt MD Primary Care Provider [phone] Allergies No known active allergies Medications * This document contains information received from the source organization and may not represent a complete record from that organization. HYDROcodone-aceta minophen ([place]) 5-325 MG tablet Take 1 tablet (5 mg of hydrocodone) by mouth 2 (two) times a day. 022 Active gabapentin (Neurontin) 100 MG capsule Take 1 capsule (100 mg) by mouth. Active oxyCODONE (Roxicodone) 5 MG immediate release tablet Take 1 tablet (5 mg) by mouth every 4 (four) hours if needed for severe pain. 30 tablet 024 Active Additional Information Patient not taking.Reported on 09/21/2024 atorvastatin (Lipitor) 20 MG tabletIndications :Hyperlipidemia, unspecified hyperlipidemia type Take 1 tablet (20 mg) by mouth 1 (one) time each day. 90 tablet 3 024 Active levothyroxine (Synthroid, Levoxyl) 100 MCG tabletIndications :Hypothyroidism, secondary Take 1 tablet by mouth daily. 30 tablet 11 025 2025 Active Testosterone 20.25 MG/ACT (1.62%) gelIndications:Hy pogonadism in male Place 20.25 mg on the skin daily. Must have labs completed in September for further refills. 75 g 025 2024 Active testosterone (Androgel) 25 MG/2.5GM (1%) gel packetIndications :Hypogonadism in male Place 1 each on the skin daily. 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); Chronic rhinitis 09/21/2024 Travel 09/07/2024 Telephone [facility] Endocrinology [address] [place] [address] Tammie Abel DO Prior-authorization/i nsurance Verification 09/07/2024 Telephone [facility] Endocrinology [address] [place] [address] Tammie Abel DO 08/30/2024 Refill [facility] [address], [address] [place] [address] Harris Green MD Hypogonadism in male 07/06/2024 Orders Only [facility] [address], [address] [place] [address] Harris Green MD Hypogonadism in male 07/06/2024 Telephone [facility] Endocrinology [address] [place] [address] Tammie Abel DO from Last 3 Months Family History Medical [...] drink first t shalom in the morning (EYE-SKIRT MAKER) to steady your nerves or to get [...] Pulse 69 09/21/2024 9:30 AM EDT Temperature 36.5 C (97.7 F) 07/26/2023 12:00 PM EDT Respiratory Rate 18 10/31/2023 12:1 5 PM EDT Oxygen Saturation 96% 05/07/2024 12: 07 PM EST Inhaled Oxygen Concentration - - Weight 99.3 kg (218 lb 14.7 oz) 09/21/2024 9:30 AM EDT Height 188 cm (6' 2 ) 09/21/2024 9:30 AM EDT Body Mass Index 28.11 09/21/2024 9:30 AM EDT Plan of Treatment Upcoming Encounters Date Type Department Care Team (Late st Contact Info) Description 10/19/2024 9:30 AM EDT Office Visit [facility] Audiology [address], 3rd [place] [address] Beatriz Ly AuD [address] [place] [address] 10/19/2024 10:[address] [facility] Otolaryngology [address], [address] [place] [address] Stephen Dubose MD [address] [place] [address] 11/19/2024 1:20 PM EDT Appointment [facility] [address] 1st [place] [address] 11/19/2024 2:30 PM EDT Office Visit [facility] [address] [place] [address] Wale Uriostegui MD [address] [place] [address] 12/14/2024 11:20 AM EDT Office Visit [facility] Endocrinology [address] [place] [address] Paul Francisco MD [address] [place] [address] 12/22/2024 9:30 AM EDT Office Visit [facility] Otol[facility] [address], [address] [place] [address] Alfredo Anderson MD [address] [place] [address] 05/20/2025 1:45 PM EST Office Visit [facility] Eye Care [address] [place] [address] Terrence Quinn MD [address] [place] [address] Health Maintenance Due Date Last Done Comments [facility]-Depression Screening 1960 [facility]-Medicare Annual Wellness (AWV) 1960 [facility]-Infant/Child/Adol SDOH Screenings 1960 [id number] Vaccine (#1) 1963 [facility]- SDOH Screenings 1976 [facility]-Adult SDOH Screenings 1976 [facility]-DTaP,Tdap,and Td Vaccines (1 - Tdap) 1977 CT Colonography 2003 Colonoscopy 2003 FIT-DNA 2003 FIT 2003 FOBT 2003 Sigmoidoscopy 2003 [facility]-Colorectal Cancer Screening 2003 [facility]-Pneumococcal Vaccine: 50+ Years (1 of 1 - PCV) 2008 [facility]-Zoster Vaccines (1 of 2) 2008 [facility]-RSV Vaccine: 60+ Years or (1 - Risk 60-74 years 1-dose series) 2018 [facility]-Abdominal Aortic Aneurysm (AAA) Screening 2023 [facility]-Influenza Vaccine (#1) 2024 [facility]-Hepatitis C Screening Completed 07/17/2023 [facility]-Obesity Intervention Completed 025, 06/22/2024, 06/21/2024, Additional history exists HPV Vaccines Aged Out [...] this topic Medical Devices Implanted Type Area Trimmer And Borer Machine Operator Device Identifier Shelf Expiration Date Model / Serial / Lot Graft Dura Repair 2x2 [employer] - [id number] Implanted:Qty: 1 on 07/22/2023 by Wale Uriostegui MD at [facility]-[id number] 10/28/2025 [id number] .[id number]. [id number] / / [id number] Procedures Procedure Name Priority Date/Time Associated Diagnosis Comments HEPATITIS C ANTIBODY - ED W/REFLEX TO HCV QUANT PCR STAT 07/17/2023 7:59 AM EDT from Last 3 Months or Most Recently Relevant to Health Maintenance Results * Hepatitis C Antibody - ED (07/17/2023 7:59 AM EDT) Hepatitis C Antibody Negative Negative 07/17/2023 9:17 AM EDT [facility] Blood Venous blood specimen / Unknown Venipuncture / Unknown 07/17/2023 7:59 AM EDT 07/17/2023 8:14 AM EDT Maria Guadalupe Barth PRESS OPERATOR [employer] [facility] BLOOD ORDERABLES Final Result [facility] [address] [place] [address] from Last 3 Months or Most Recently Relevant to Health Maintenance Additional Health Concerns Infection Onset Date Last Indicated 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 Yes Care Teams Garnett Room Worker Relationship Specialty Start Date End Date Rick Brandt MD [address] [place] [address] PCP - General 09/21/24 Michael Lopez MD [address] [place] [address] 07/17/23
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
--- OUTSIDE RECORDS SUMMARY | 2024-10-05 09:18 | XMS_ITS | Encounter Summary ---
Author Organization Healthcare Address [address] [place] [address] Care Team Providers Care Director Of Hospitality Name Role Phone Pcp, No Primary Care Provider Unavailabl e Michael Lopez MD Unavailable [phone] Terrence Balderas DO Primary Care Provider [phone] Rick Brandt MD Primary Care Provider [phone] Encounter Details Date Type Department Care Team (Late st Contact Info) Description 07/23/2023 Lab Requisition [facility] [address] [place] [address] Lorenzo Simpson MD [address] [facility] [address] [place] [address] Encounter for general adult medical [...] place to sleep or slept in a fci (including now)? 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 Wish to be (Past 1 Month) No 024 4:00 PM EDT Amber Brock, MILLER 2. Non-Specific Active Suici nishi Thoughts (Past 1 Month) No 07/26/2023 4:00 PM EDT Thelma Brock RN 6. Suicidal Behavior (Lifetime) No 4:00 PM EDT Amber Brock RN documented as of this encounter Plan of Treatment Upcoming Encounters Date Type Department Care Team (Late st Contact Info) Description 10/19/2024 9:30 AM EDT Office Visit [facility] Audiology [address] [place] [address] Beatriz Ly AuD [address] [place] [address] 10/19/2024 10:00 AM EDT Consult [facility] Otolaryngology [address], [address] [place] [address] Stephen Dubose MD [address] [place] [address] 11/19/2024 1:20 PM EDT Appointment [facility] Radiology [address] [place] [address] 11/19/2024 2:30 PM EDT Office Visit [facility] [address], [address] [place] [address] Wale Uriostegui MD [address] [place] [address] 12/14/2024 11:20 AM EDT Office Visit [facility] Endocrinology [address] [place] [address] Paul Francisco MD [address] [place] [address] 12/22/2024 9:30 AM EDT Office Visit [facility] Otolaryngology [address], [address] [place] [address] Alfredo Anderson MD [address] [place] [address] 05/20/2025 1:45 PM EST Office Visit [facility] [address] [place] [address] Terrence Quinn MD [address] [place] [address] documented as of this encounter [...] Culture Kelly auris(A) 07/30/2023 12:50 PM EDT HEALTHCARE LAB Comment:This isolate has bee n identified using the FDA Approved MALDI [employer] Cluber CA System Swab (Axilla and Groin) 07/23/2023 9:00 AM EDT 07/23/2023 9:39 AM EDT Lorenzo Simpson MD LAB MICROBIOLOGY - GEN ERAL ORDERABLES Final Result Performing Organization Address [facility] Co de Phone Number [facility] [address] [place] [address] * (ABNORMAL) Kelly auris Surveillance by PCR (07/23/2023 9:00 AM EDT) Kelly auris PCR Result Detected( A) Not Detected 07/24/2023 9:37 AM EDT [facility] Swab (Axilla and Groin) 07/23/2023 9:00 AM EDT 07/23/2023 9:39 AM EDT Narrative [facility] - 07/24/2023 9:37 AM EDT This PCR assay was developed and its performance characteristics determined by [facility] as appropriate for clinical purposes. This assay has not been cleared or approved by the FDA, but is performed in a CLIA regulated laboratory that is qualified to perform high-complexity testing. Lorenzo Simpson MD LAB MICROBIOLOGY - GEN ERAL ORDERABLES Final Result Performing Organization Address [facility] Co de Phone Number [facility] [address] [place] [address] documented in this encounter Visit Diagnoses Diagnosis [...] of this encounter Care Teams Director Of Hospitality Relationship Specialty Start Date End Date Pcp, No [address] [place] [address] PCP - General Family Medicine 07/17/23 10/30/23 Terrence Balderas DO [address] [place] [address] PCP - General 10/31/23 09/20/24 Rick Brandt MD [address] [place] [address] PCP - General 09/21/24 Michael Lopez MD [address] [id number] 07/17/23 documented as of this encounter
[2024-10-05 09:23] VITALS: BP 137/98; PULSE 72; RESP 18; O2SAT 97; BMI 29.0
[2024-10-05 09:50] VITALS: BP 136/88; PULSE 69; RESP 18; O2SAT 97
[2024-10-05] MEDS: LIDOCAINE 1% 5ML PF VIAL 5 ML (09:50)
[2024-10-05] MEDS: BUPIVACAINE 0.25% 10ML INJ 25 MG IJ (09:50)
[2024-10-05] MEDS: DEXAMETHASONE 10MG/ML 1ML VIAL 10 MG (09:50)
[2024-10-05 09:51] VITALS: BP 136/88; PULSE 69; RESP 18; O2SAT 97
[2024-10-05 09:56] VITALS: BP 123/84; PULSE 70; RESP 18; O2SAT 96
--- NOTE | 2024-10-05 10:02 | EXP.PAIN.PRO ---
Procedure Date: 10/05/24 Time: 10:00 Anesthesiologist:: Asif Downs CRNA Complications:: None Pre-procedure Diagnosis:: DJD bilateral shoulder. Chronic bilateral shoulder pain Post-procedure Diagnosis:: Same Indications for Procedure:: Patient is a pleasant 64-year-old male who comes our clinic today for bilateral intra-articular steroid injections cortisone local anesthetic. Patient describes bilateral shoulder pain as constant, dull, aching. He rates his pain 7/10. He has 5/5 strength in the bilateral arms. However, limited range of motion secondary bilateral shoulder pain. Procedure Details:: Procedure Details: Left shoulder intra-articular injection Informed consent was obtained risk and benefits of the procedure were explained to the patient. Patient was taken to the procedure room. The Left shoulder was prepped using ChloraPrep. A 25-gauge needle was used posteriorly to inject 10 mL bupivacaine 0.25% and 10 mg of dexamethasone. Patient tolerated procedure well with no complications. Procedure Details: Right shoulder intra-articular injection Informed consent was obtained risk and benefits of the procedure were explained to the patient. Patient was taken to the procedure room. The right shoulder was prepped using ChloraPrep. A 25-gauge needle was used posteriorly to inject 10 mL bupivacaine 0.25% and 10 mg of dexamethasone. Patient tolerated procedure well with no complications. Plan and Disposition:: Patient was discharged without incident.
== END 2024-10-05 09:56 | disposition home or self-care (01) ==
PROVIDERS: PCP Family Medicine; Visit Provider Nurse Anesthetist, Certified Registered
DX: M19.012 Primary osteoarthritis, left shoulder (principal); M19.011 Primary osteoarthritis, right shoulder; E78.5 Hyperlipidemia, unspecified; I10 Essential (primary) hypertension; Z87.891 Personal history of nicotine dependence; Z79.891 Long term (current) use of opiate analgesic; Z79.899 Other long term (current) drug therapy
CPT/HCPCS: 20610; J0665; J1100; J2003

== ENCOUNTER 2024-10-21 11:40 | Outpatient (POV) | payer MEDICARE, MEDICAID, SELFPAY ==
--- OUTSIDE RECORDS SUMMARY | 2024-09-21 09:30 | XMS_ITS | Encounter Summary ---
Author Organization Healthcare Address [address] [place] [address] Care Team Providers Care Global Expansion Sales Director Name Role Phone Michael Lopez MD Unavailable [phone] Rick Brandt MD Primary Care Provider [phone] Reason for Visit * Reason Comments Follow-up Encounter Details Date Type Department Care Team (Late st Contact Info) Description 09/21/2024 9:30 AM EDT [facility] [address], [address] [place] [address] Alfredo Anderson MD [address] [place] [address] Apoplexy (CMS/HCC) (Primary Dx); Chronic rhinitis Social History Tobacco Use Types Packs/Day Years [...] place to sleep or slept in a skilled nursing (including now)? No 07/18/2023 CAGE ASSESSMENT Answer [...] drink first t shalom in the morning (EYE-HAT CONDITIONER) to steady your nerves or to get rid of a hangover? 0 07/19/2023 CAGE Questionnaire Score 0 024 Utilities Answer Date Recorded In the past 12 months has th e [employer], gas, oil, or water company threatened to shut off services in your home? No 07/18/2023 Sex and Gender Information Value Date Recorded Sex Assigned at Not on file Legal Sex Male 6:55 PM EDT Gender Identity Not on file Sexual Orientation Not on file documented as of this encounter Last Filed Vital Signs Vital Sign Reading Time Taken Comments Blood Pressure 141/92 09/21/2024 9:30 AM EDT Pulse 69 09/21/2024 9:30 AM EDT Temperature - - Respiratory Rate - - Oxygen Saturation - - Inhaled Oxygen Concentration - - Weight 99.3 kg (218 lb 14.7 oz) 09/21/2024 9:30 AM EDT Height 188 cm (6' 2 ) 09/21/2024 9:30 AM EDT Body Mass Index 28.11 09/21/2024 9:30 AM EDT documented in this encounter Miscellaneous Notes * Progress Notes - Alfredo Anderson MD - 09/21/2024 9:[address] Uriostegui, I had the pleasure of evaluating your patient. My full evaluation is as follows. HPI: This is a 64 y.o. 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 He has done well since then. He is breathing well. He blew out a lot of crust at first, but now he only blows a l ittle out here and there. He is not having significant drainage. He is not having salty or metallictasting drainage. He has been rinsing daily. He is interested in having his tinnitus evaluated. He has had slightly worsened tinnitus over the last 6 years. He has not had a hearing test in many years. Past Medical History: Reviewed Past Surgical History: Reviewed Medications: Reviewed Allergies: Reviewed Family History: Reviewed and noncontributory. Social History: Reviewed Physical Exam: General: No acute distress, generally healthy appearing, and alert and oriented x3. Head/Face: Atraumatic and normocephalic. Sinuses are nontender to palpation. Eyes: Pupils are equal. Extraocular muscles are intact. Nose: Septum is midline. No inferior turbinate hypertrophy. No obvious masses or polyps. Oral Cavity/Oropharynx: Moist mucous membranes. No masses or lesions noted. Skin: No obvious rashes or lesions. Psychiatric: Normal mood. Normal affect. Judgment is appropriate. Respiratory: Breathing comfortably at a normal rate. No accessory muscle usage. Procedure: Nasal Endoscopy: Preoperative Diagnosis: transsphenoidal hypophysectomy Postoperative Diagnosis: same The risks, benefits and alternatives of the procedure were discussed with the patient and verbal consent was obtained. No topical medication was utilized for anesthesia or decongestion. Septum: Midline. Posterior septectomy. Crusting on left anterior septum is very mild. Left Inferior Turbinate: Healthy mucosa. No significant hypertrophy. Left Middle Turbinate: Lateral position. Left Middle Meatus: Normal appearing. No edema, polyps, or purulent drainage. Left Maxillary: Undissected Left Ethmoid: Well healed. Left Sphenoid: Crusting present. Largely removed, but last bit did not seem free - so it was left in place. Left Frontal: Undissected Right Inferior Turbinate: Healthy mucosa. No significant hypertrophy. Right Middle Turbinate: Medial position. Right Middle Meatus: Normal appearing. No edema, polyps, or purulent drainage. Right Maxillary: Undissected Right Ethmoid: Well healed. Right Sphenoid: Crusting present. Largely removed, but last bit did not seem free - so it was left in place. Right Frontal: Undissected Nasopharynx: Bilateral eustachian tube orifices are clear. Nasopharynx with normal appearing mucosa. No masses or lesions are present. Patient tolerated the procedure well. No significant bleeding. No complications. Results: I previously reviewed his MRI images from August 20, 2023. Lesion appears to be debulked but with persistence in cavernous sinuses. Assessment: This is a 64 y.o. 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 There was no CSF leak. Plan: He has crusting in the sphenoid, and I was able to debride a lot of this. There was a small portionpresent, and I could not tell if it was totally free, so we left it in place. I have asked him to continue rinsing daily. He is interested in a hearing test regarding his ongoing tinnitus, so I will arrange for this and for him to see one of our otologists. I will see him back in 3 months. Thank you for involving me in the care of your patient. Please don't hesitate to contact me if you have any questions or concerns. Alfredo Anderson MD The patient has been counseled on tobacco cessation: Not Applicable documented in this encounter Plan of Treatment Upcoming Encounters Date Type Department Care Team (Late st Contact Info) Description 11/19/2024 1:20 PM EDT Appointment [facility] [address] [place] [address] 11/19/2024 2:30 PM EDT [facility] [address], [address] [place] [address] Wale Uriostegui MD [address] [place] [address] 12/14/2024 11:20 AM EDT Office Visit [facility] Endocrinology [address] [place] [address] Paul Francisco MD [address] [place] [address] 12/22/2024 9:30 AM EDT [facility] [address], [address] [place] [address] Alfredo Anderson MD [address] [place] [address] 05/20/2025 1:45 PM EST Office Visit [facility] [address] [facility] [place] [address] Terrence Quinn MD [address] [place] [address] documented as of this encounter Visit Diagnoses Diagnosis Apoplexy (CMS/HCC)- Primary Acute, but ill-defined, cerebrovascular disease Chronic rhinitis documented in this encounter Additional Health Concerns Infection Onset Date Last Indicated Resolved Time Kelly Auris Comment: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
--- OUTSIDE RECORDS SUMMARY | 2024-10-19 09:30 | XMS_ITS | Encounter Summary ---
Author Organization Healthcare Address [address] [place] [address] Care Team Providers Care Lmsw Name Role Phone Michael Lopez MD Unavailable [phone] Rick Brandt MD Primary Care Provider [phone] Encounter Details Date Type Department Care Team (Latest Contact Info) Description 10/19/2024 9:30 AM EDT Office Visit [facility] Audiology [address], [address] [place] [address] Beatriz Ly M, AuD [address] [place] [address] Asymmetrical sensorineural hearing loss (Primary Dx); Tinnitus, bilateral Social History Tobacco Use Types Packs/Day Years [...] place to sleep or slept in a snf (including now)? 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 0 07/19/2023 CAGE Questionnaire Score 0 024 Utilities Answer Date Recorded In the past 12 months has th e [employer], gas, oil, or water company threatened to shut off services in your home? No 07/18/2023 Sex and Gender Information Value Date Recorded Sex Assigned at Not on file Legal Sex Male 6:55 PM EDT Gender Identity Not on file Sexual Orientation Not on file documented as of this encounter Miscellaneous Notes * Progress Notes - Beatriz Ly AuD - 10/19/2024 9:30 AM EDT Images from the original note were not included. AUDIOLOGIC EVALUATION Referring Provider: Stephen Dubose MD HISTORY: Aimee Rodriguez is a 64 y.o. male seen today for an audiologic evaluation. Today he reported bilateral gradual hearing loss, worse RE, and constant bilateral tinnitus, louder in the RE. He notes a history of occupational noise exposure. No other significant audiological history or changes were reported. RESULTS: Otoscopy: Occluding cerumen/debris removed by ENT prior to testing Tympanograms (226 Hz): Normal pressure, volume and compliance RE Hyper-compliance, normal volume and pressure LE Audiogram: Method: Conventional Audiometry Transducer: headphones and inserts Results: Today's comprehensive audiologic evaluation demonstrated right normal hearing through 2000Hz sloping to moderately-severe sensorineural hearing loss and left normal hearing through 500 Hz sloping to severe essentially sensorineural hearing loss (note LE 4000 Hz ABG) Word Recognition: RE: 100%; Excellent LE: 100%; Excellent SRT/Audiogram Agreement: Good Reliability: Good RECOMMENDATIONS: - Patient following up with ENT - Hearing aids with medical clearance. Patient provided a copy of today's evaluation and encouragedto pursue amplification through the [facility]. Beatriz Loera, [facility]-A Utility Worker [employer] documented in this encounter Plan of Treatment Upcoming Encounters Date Type Department Care Team (Late st Contact Info) Description 11/19/2024 1:20 PM EDT Appointment [facility] [address] [place] [address] 11/19/2024 2:30 PM EDT Office Visit [place] [facility] [address] [place] [address] Wale Uriostegui MD [address] [place] [address] 12/14/2024 11:20 AM EDT [facility] [address] [place] [address] Paul Francisco MD [address] [place] [address] 12/22/2024 9:30 AM EDT [facility] Otol[facility]ology [address] [place] [address] Alfredo Anderson MD [address] [place] [address] 05/20/2025 1:45 PM EST Office Visit [facility] [address] [place] [address] Terrence Quinn MD [address] [place] [address] documented as of this encounter Visit Diagnoses Diagnosis Asymmetrical sensorineural hearing loss- Primary Sensorineural hearing loss, asymmetrical Tinnitus, bilateral Unspecified tinnitus documented in this encounter Additional Health Concerns Infection Onset Date Last Indicated Resolved Time 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 [place] [address] 07/17/23 documented as of this encounter
--- OUTSIDE RECORDS SUMMARY | 2024-10-19 10:00 | XMS_ITS | Encounter Summary ---
Author Organization Healthcare Address [address] [place] [address] Care Team Providers Care Docking Pilot Name Role Phone Michael Lopez MD Unavailable [phone] Rick Brandt MD Primary Care Provider [phone] Reason for Visit * Reason Comments Cerumen Impaction Ear cleaning with a hearing test. Hearing loss. Encounter Details Date Type Department Care Team (Late st Contact Info) Description 10/19/2024 10:00 AM EDT [facility] [address], [address] [place] [address] Stephen Dubose MD [address] [place] [address] Sensorineural hearing loss (SNHL) of both ears (Primary Dx); Asymmetrical hearing loss; Tinnitus of both ears; Bilateral impacted cerumen Social History Tobacco Use Types Packs/Day Years [...] place to sleep or slept in a usp (including now)? No 07/18/2023 CAGE ASSESSMENT Answer [...] drink first t shalom in the morning (EYE-BLOCK BOLTER MULE OPERATOR) to steady your nerves or to get rid of a hangover? 0 07/19/2023 CAGE Questionnaire Score 0 024 Utilities Answer Date Recorded In the past 12 months has th e [employer], oil, or [employer] threatened to shut off services in your home? No 07/18/2023 Sex and Gender Information Value Date Recorded Sex Assigned at Not on file Legal Sex Male 6:55 PM EDT Gender Identity Not on file Sexual Orientation Not on file documented as of this encounter Last Filed Vital Signs Vital Sign Reading Time Taken Comments Blood Pressure 127/83 10/19/2024 9:43 AM EDT Pulse 80 10/19/2024 9:43 AM EDT Temperature - - Respiratory Rate - - Oxygen Saturation - - Inhaled Oxygen Concentration - - Weight 99.8 kg (220 lb) 10/19/2024 9:43 AM EDT Height 188 cm (6' 2 ) 10/19/2024 9:43 AM EDT Body Mass Index 28.25 10/19/2024 9:43 AM EDT documented in this encounter Miscellaneous Notes * Progress Notes - Stephen Dubose MD - 10/19/2024 10:00 AM EDT Images from the original note were not included. [facility] -- [place] [id number] New Patient Visit HPI: Aimee Rodriguez is a 64 y.o. male who presents for tinnitus and hearing loss. He reports he has had bilateral tinnitus for awhile. He does not really perceive significant difficulties in hearing. He does have some bilateral hyperacusis. No ear pain, drainage, fullness, itching, dizziness. No history of frequent ear infections, prior otologic surgery, ototoxic medications, family history of hearing loss. 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 He denies medical history in his family. He lives with his spouse. He quit tobacco in 1996. He uses alcohol occasionally. He quit marijuana 2 years ago. Denies drug allergies. A 14-point review of systems was performed and is noncontributory with the exception of the HPI. 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 tech and Face: normocephalic, no scars, lesions, masses Facial strength: normal bilaterally Nose: external nose of normal appearance, no gross external deformities Ocular Motility: normal with normal primary gaze alignment, no nystagmus Examination of neck: normal appearance, trachea midline, no masses, no lymphadenopathy External ears: pinnae normal Neuro: alert, cranial nerves grossly intact unless otherwise noted above Cardiovascular: no peripheral cyanosis Pulmonary: breathing quietly, no stridor or stertor Otoscopy: binocular otomicroscopy was performed in lieu of handheld otoscopy Binocular otomicroscopy procedure was performed. The indication was tinnitus. The patient was positioned supine and an ear speculum was inserted. The microscope was used to inspect the right ear, then the same procedure was performed on the left. The patient tolerated the procedure well. Findings: RIGHT ear canal is impacted with cerumen and the tympanic membrane intact with no retraction, infection, or effusion LEFT ear canal is impacted with cerumen and the tympanic membrane is intact with no retraction, infection, or effusion Assessment & Plan: 1. Sensorineural hearing loss (SNHL) of both ears 2. Asymmetrical hearing loss 3. Tinnitus of both ears 4. Bilateral impacted cerumen Aimee Rodriguez is a 64 y.o. male with bilateral bdpr-pjiecpl-zqth-right asymmetric sensorineural hearing loss, bilateral tinnitus, and bilateral cerumen impaction, in the setting of an MRI showing no IAC or CPA abnormalities. Cerumenectomy was performed today. Today we had a long discussion regarding the pathophysiology and natural history of sensorineural hearing loss and associated tinnitus. The tinnitus is a sensation that is produced by the brain when hearing loss is present and the brain is deprived of a portion of the auditory information that it is typically receives. For the hearing loss, I recommended obtaining hearing aids when communication becomes difficult. Tinnitus is a chronic condition experienced by 15-20% of Americans which can fluctuate based on how much focus and attention is directed toward that sensation. The less attention itis given, the less noticeable it becomes. We discussed sound enrichment: quiet music or sounds during the day, and a white noise machine or a fan at night. Ear protection should be used in very noisyenvironments to prevent further hearing loss. For a new diagnosis of sensorineural hearing loss, I do recommend an audiogram to be performed in 1-2 years just to make sure the hearing loss is not progressing rapidly. If it is stable then, the audiograms may be spaced out to every other year or every third year unless new problems arise. Stephen Dubose MD documented in this encounter Plan of Treatment Upcoming Encounters Date Type Department Care Team (Late st Contact Info) Description 11/19/2024 1:20 PM EDT Appointment [facility] [address], [address]st [place] [address] 11/19/2024 2:30 PM EDT [facility] [address], [address] [place] [address] Wale Uriostegui MD [address] [place] [address] 12/14/2024 11:20 AM EDT Office Visit [facility] Endocrinology [address] [place] [phone] Paul Francisco MD [address] [place] [address] 12/22/2024 9:30 AM EDT [facility] [address] 3rd [place] [address] Alfredo Anderson MD [address] [place] [address] 05/20/2025 1:45 PM EST Office Visit [facility] [address] [facility] [place] [address] Terrence Quinn MD [address] [phone] documented as of this encounter Visit Diagnoses Diagnosis Sensorineural hearing loss (SNHL) of both ears- Primary Asymmetrical hearing loss Unspecified hearing loss Tinnitus of both ears Unspecified tinnitus Bilateral impacted cerumen Impacted cerumen documented in this encounter Additional Health Concerns [...] documented as of this encounter Care Teams Docking Pilot Relationship Specialty Start Date End Date Rick Brandt MD [address] [place] [address] PCP - General 09/21/24 Michael Lopez MD [address] [place] [address] 07/17/23 documented as of this encounter
--- OUTSIDE RECORDS SUMMARY | 2024-10-21 11:43 | XMS_ITS | Clinical Summary ---
Author Organization Healthcare Address [address] [place] [address] Care Team Providers Care Section Supervisor Name Role Phone Michael Lopez MD Unavailable [phone] Rick Brandt MD Primary Care Provider [phone] Allergies No known active allergies Medications * This document contains information received from the source organization and may not represent a complete record from that organization. HYDROcodone-acetam inophen ([place]) 5-325 MG tablet Take 1 tablet (5 [...] taking.Reported on 09/21/2024 atorvastatin (Lipitor) 20 MG tabletIndications: Hyperlipidemia, unspecified hyperlipidemia type Take 1 tablet (20 mg) by mouth 1 (one) time each day. 90 tablet 3 12/18/19 24 Active levothyroxine (Synthroid, Levoxyl) 100 MCG tabletIndications: Hypothyroidism, secondary Take 1 tablet by mouth daily. 30 tablet 11 06/30/19 25 026 Active Testosterone 20.25 MG/ACT (1.62%) gelIndications:Hyp ogonadism in male Place 20.25 mg on the skin daily. Must have labs completed in September for further refills. 75 g 09/08/19 25 Active Active Problems Problem Noted Date [...] MIVF x24 hours PO fluids Berger catheter [id number] Rest of care per primary team Hydrocortisone [...] Encounters Date Type Department Care Team Description 10/19/2024 10:00 AM EDT Consult [facility] Otolaryngology [address], [address] [place] [address] Stephen Dubose MD Sensorineural hearing loss (SNHL) of both ears (Primary Dx); Asymmetrical hearing loss; Tinnitus of both ears; Bilateral impacted cerumen 10/19/2024 9:30 AM EDT Office Visit [facility] Audiology [address], [address]rd [place] [address] Beatriz Ly AuD Asymmetrical sensorineural hearing loss (Primary Dx); Tinnitus, bilateral 10/19/2024 Travel 10/14/2024 Telephone [facility] Otolaryngology [address] [place] [address] Toribio Proctor 09/21/2024 9:30 AM EDT Office Visit [facility] Otolaryngology [address] [place] [address] Alfredo Anderson MD Apoplexy ([facility]) (Primary Dx); Chronic rhinitis 09/21/2024 Travel 09/07/2024 Telephone [facility] Endocrinology [address] [place] [address] Tammie Abel DO Prior-authorization/in surance Verification 09/07/2024 Telephone [facility] Endocrinology [address] [place] [address] Tammie Abel DO 08/30/2024 [facility] [address], [address] [place] [address] Harris Green MD Hypogonadism in male from Last 3 Months Family History Medical [...] drink first t shalom in the morning (EYE-FORM BUILDER) to steady your nerves or to get rid of a hangover? 0 07/19/2023 CAGE Questionnaire Score 0 024 Utilities Answer Date Recorded In the past 12 months has e [employer], gas, oil, or water [employer] threatened to shut off services in your home? No 07/18/2023 Sex and Gender Information Value Date Recorded Sex Assigned at Not on file Legal Sex Male 6:55 PM EDT Gender Identity Not on file Sexual Orientation Not on file Last Filed Vital Signs Vital Sign Reading Time Taken Comments Blood Pressure 127/83 10/19/2024 9:43 AM EDT Pulse 80 10/19/2024 9:43 AM EDT Temperature 36.5 C (97.7 F) 07/26/2023 12:00 PM EDT Respiratory Rate 18 10/31/2023 12:15 PM EDT Oxygen Saturation 96% 05/07/2024 12:07 PM EST Inhaled Oxygen Concentration - - Weight 99.8 kg (220 lb) 10/19/2024 9:43 AM EDT Height 188 cm (6' 2 ) 10/19/2024 9:43 AM EDT Body Mass Index 28.25 10/19/2024 9:43 AM EDT Plan of Treatment Upcoming Encounters Date Type Department Care Team (Late st Contact Info) Description 11/19/2024 1:20 PM EDT Appointment [facility] [address]st [place] [address] 11/19/2024 2:30 PM EDT Office Visit [place] [facility] [address] [place] [address] Wale Uriostegui MD [address] [place] [address] 12/14/2024 11:20 AM EDT [facility] [address] [place] [phone] Paul Francisco MD [address] [place] [address] 12/22/2024 9:30 AM EDT Office Visit [facility] [address], [address] [place] [address] Alfredo Anderson MD [address] [place] [address] 05/20/2025 1:45 PM EST Office Visit [facility] Eye Care [address] [place] [address] Terrence Quinn MD [address] [place] [address] Health Maintenance Due Date Last Done Comments [facility]-Depression Screening 1958 [facility]-Medicare Annual Wellness (AWV) 1958 [facility]-Infant/Child/Adol SDOH Screenings 1958 [facility]-UPCVD-51 Vaccine (#1) 1963 [facility]- SDOH Screenings 1976 [facility]-Adult SDOH Screenings 1976 [facility]-DTaP,Tdap,and Td Vaccines (1 [...] Screening Completed 07/17/2023 [facility]-Obesity Intervention Completed 025, 10/19/2024, 09/21/2024, Additional history exists HPV Vaccines Aged Out [...] this topic Medical Devices Implanted Type Area Service Technician Copier Device Identifier Shelf Expiration Date Model / Serial / Lot Graft Dura Repair 2x2 [employer] - [id number] Implanted:Qty: 1 on 07/22/2023 by Wale Uriostegui MD at [facility]722018 10/28/2025 PR.400 .025. [id number] / / [id number] Procedures Procedure Name Priority Date/Time Associated Diagnosis Comments HEPATITIS C ANTIBODY - ED W/REFLEX TO HCV QUANT PCR STAT 07/17/2023 7:59 AM EDT from Last 3 Months or Most Recently Relevant to Health Maintenance Results * Hepatitis C Antibody - ED (07/17/2023 7:59 AM EDT) Hepatitis C Antibody Negative Negative 07/17/2023 9:17 AM EDT [facility] Blood Venous blood specimen / Unknown Venipuncture / Unknown 07/17/2023 7:59 AM EDT 07/17/2023 8:14 AM EDT us Maria Guadalupe Barth APRN LAB BLOOD ORDERABLES Final Result [facility] [address] [place] [address] from Last 3 Months or Most Recently [...] Patient has decision-making capacity? Yes Care Teams Section Supervisor Relationship Specialty Start Date End Date Rick Brandt MD [address] [place] [address] PCP - General 09/21/24 Michael Lopez MD [address] [place] [address] 07/17/23
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
--- OUTSIDE RECORDS SUMMARY | 2024-10-21 11:43 | XMS_ITS | Encounter Summary ---
Author Organization Healthcare Address [address] [place] [address] Care Team Providers Care Head Host/Hostess Name Role Phone Pcp, No Primary Care Provider Unavailabl e Michael Lopez MD Unavailable [phone] Terrence Balderas DO Primary Care Provider [phone] Rick Brandt MD Primary Care Provider [phone] Encounter Details Date Type Department Care Team (Late st Contact Info) Description 07/21/2023 Ophth Exam [facility] [address] [place] [address] Ryan Romero MD [address] [place] [address] Social History Tobacco Use Types [...] drink first t shalom in the morning (EYE-PHYSICIAN CODER) to steady your nerves or to get [...] EDT Appointment [facility] [address] [place] [address] 11/19/2024 2:30 PM EDT Office Visit [facility] [address], [address]st [place] [address] Wale Uriostegui MD [address] [facility] [address] [place] [address] 12/14/2024 11:20 AM EDT Office Visit [facility] Endocrinology [address] [place] [address] Paul Francisco MD [address] [place] [address] 12/22/2024 9:30 AM EDT Office Visit [facility] Otolaryngology [address] [place] [address] Alfredo Anderson MD [address] [place] [address] 05/20/2025 1:45 PM EST Office Visit [facility] [address] [place] [address] Terrence Quinn MD [address] [place] [address] documented as of this encounter [...] documented as of this encounter Care Teams Head Host/Hostess Relationship Specialty Start Date End Date Pcp, No [address] [place] [address] PCP - General Family Medicine 07/17/23 10/30/23 Terrence Balderas DO [address] [place] [address] PCP - General 10/31/23 09/20/24 Rick Brandt MD [address] [place] [address] PCP - General 09/21/24 Michael Lopez MD [address] [place] [address] 07/17/23 documented as of this encounter
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
--- OUTSIDE RECORDS SUMMARY | 2024-10-21 11:43 | XMS_ITS | Encounter Summary ---
Author Organization [employer] ([place], [place], [place], [place]) Address [address] [place] [address] Care Team Providers Care Winch Truck Operator Name Role Phone Unavailable Primary Care Provider Unavailabl e Encounter Details Date Type Department Care Team (Late st Contact Info) Description 09/29/2021 Transcribed Document [facility] Family Medicine [address] [place] [address] ProviderJoyce MD [address] [place] [id number] Social History Tobacco Use Types Packs/Day Years Used Date Smoking Tobacco: Never Assessed Sex and Gender Information Value Date Recorded Sex Assigned at Male 03/19/2024 9:50 AM MANAGER MACHINE Legal Sex Male 9:50 AM MANAGER MACHINE Gender Identity Male 03/19/2024 9:50 AM MANAGER MACHINE Sexual Orientation Not on file documented as [...]
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
--- OUTSIDE RECORDS SUMMARY | 2024-10-21 11:43 | XMS_ITS | Encounter Summary ---
Author Organization Healthcare Address [address] [place] [address] Care Team Providers Care Neurology Technologist Name Role Phone Michael Lopez MD Primary Care Provider [phone] Pcp, No Primary Care Provider Unavailabl e Michael Lopez MD Unavailable [phone] Terrence Balderas DO Primary Care Provider [phone] Rick Brandt MD Primary Care Provider [phone] Reason for Referral * Consultation (Routine) - Closed Specialty Diagnoses / Procedures Referred By Contac t Referred To Contact Neurosurgery Diagnoses Cervical nerve root impingement Cervical osteophyte Lumbar nerve root impingement Lumbar foraminal stenosis Michael Lopez MD [address] [place] [address] Phone: tel: fax: Referral ID Status Reason Start Date Expiration Date V isits Requested Visits Authorized [id number] Closed Specialty Services Required 11/02/2021 05/04/2023 1 1 Encounter Details Date Type Department Care Team (Late st Contact Info) Description 11/02/2021 [facility] [address] [place] [phone] Michael Lopez MD [address] [place] [address] Cervical nerve root impingement (Primary Dx); [...] S Radiology [address], 1st [place] [address] 11/19/2024 2:30 PM EDT Office Visit [place] [facility] [address], [address] [place] [address] Wale Uriostegui MD [address] [place] [address] 12/14/2024 11:20 AM EDT Office Visit [facility] Endocrinology [address] [place] [phone] Paul Francisco MD [address] [place] [address] 12/22/2024 9:30 AM EDT Office [facility] [place] [facility] Otolaryngology [address], 3rd [place] [address] Alfredo Anderson MD [address] [place] [address] 05/20/2025 1:45 PM EST Office Visit [facility] Eye Care [address] [facility] [place] [address] Terrence Quinn MD [address] [place] [address] Scheduled Referrals Name Type Priority [...] documented as of this encounter Care Teams Neurology Technologist Relationship Specialty Start Date End Date Michael Lopez MD [address] [place] [address] PCP - General 12/07/21 07/16/23 Pcp, [address] [address] PCP - General Family Medicine 07/17/23 10/30/23 Terrence Balderas DO [address] [place] [address] PCP - General 10/31/23 09/20/24 Rick Brandt MD [address] [place] [address] PCP - General 09/21/24 Michael Lopez MD [address] [place] [address] 07/17/23 documented as of this encounter
--- OUTSIDE RECORDS SUMMARY | 2024-10-21 11:43 | XMS_ITS | Clinical Summary ---
Author Organization [facility] Address [address] [place] [address], [address] [place] [address] Care Team Providers Care Delivery Manager Name Role Phone Unavailable Primary Care Provider [...]
--- OUTSIDE RECORDS SUMMARY | 2024-10-21 11:43 | XMS_ITS | Encounter Summary ---
Author Organization [employer] ([place], [place], [place], [place]) Address [address] [place] [address] Care Team Providers Care Supervisor Steno Pool Name Role Phone Unavailable Primary Care Provider Unavailabl e Encounter Details Date Type Department Care Team (Late st Contact Info) Description 10/01/2021 Transcribed Document [facility] [place] Family Medicine [facility] [address] ProviderJoyce [place] [address] Social History Tobacco Use Types Packs/Day Years Used Date Smoking Tobacco: Never Assessed Sex and Gender Information Value Date Recorded Sex Assigned at Male 03/19/2024 9:50 AM PHYSICIAN PRIMARY CARE SPORTS MEDICINE Legal Sex Male 9:50 AM PHYSICIAN PRIMARY CARE SPORTS MEDICINE Gender Identity Male 03/19/2024 9:50 AM PHYSICIAN PRIMARY CARE SPORTS MEDICINE Sexual Orientation Not on file documented as [...]
--- OUTSIDE RECORDS SUMMARY | 2024-10-21 11:43 | XMS_ITS | Encounter Summary ---
Author Organization [employer] ([place], [place], [place], [place]) Address [address] [place] [address] Care Team Providers Care Computing Tutor Name Role Phone Unavailable Primary Care Provider Unavailabl e Encounter Details Date Type Department Care Team (Late st Contact Info) Description 09/29/2021 Transcribed Document [facility] [place] [facility] [place] [address] ProviderJoyce MD [facility] [place] [address] Social History Tobacco Use Types Packs/Day Years Used Date Smoking Tobacco: Never Assessed Sex and Gender Information Value Date Recorded Sex Assigned at Male 03/19/2024 9:50 AM CATTLE TRADER Legal Sex Male 9:50 AM CATTLE TRADER Gender Identity Male 03/19/2024 9:50 AM CATTLE TRADER Sexual Orientation Not on file documented as [...]
--- OUTSIDE RECORDS SUMMARY | 2024-10-21 11:43 | XMS_ITS | Encounter Summary ---
Author Organization [employer] ([place], [place], [place], [place]) Address [address] [place] [address] Care Team Providers Care Debt Management Counselor Name Role Phone Unavailable Primary Care Provider Unavailabl e Encounter Details Date Type Department Care Team (Late st Contact Info) Description 09/29/2021 Transcribed Document [facility] [place] [facility] [place] [address] ProviderJoyce MD [facility] [place] [id number] Social History Tobacco Use Types Packs/Day Years Used Date Smoking Tobacco: Never Assessed Sex and Gender Information Value Date Recorded Sex Assigned at Male 03/19/2024 9:50 AM BIBLICAL LANGUAGES PROFESSOR Legal Sex Male 9:50 AM BIBLICAL LANGUAGES PROFESSOR Gender Identity Male 03/19/2024 9:50 AM BIBLICAL LANGUAGES PROFESSOR Sexual Orientation Not on file documented as of this encounter Miscellaneous Notes * Cerner Conversion Note - Historical ProviderMD - 09/29/2021 8:26 PM CDT Electronically signed by Gonzalo [facility] Conversion Incinerator Plant Supervisor Eliceo at 07/15/2022 11:29 AM CDT documented in this encounter Plan of Treatment Not on file documented as of this encounter Visit Diagnoses Not on filedocumented in this encounter
--- OUTSIDE RECORDS SUMMARY | 2024-10-21 11:43 | XMS_ITS | Encounter Summary ---
Author Organization Healthcare Address [address] [place] [address] Care Team Providers Care Blood Donor Recruiter Name Role Phone Michael Lopez MD Unavailable [phone] Rick Brandt MD Primary Care Provider [phone] Encounter Details Date Type Department Care Team [...] place to sleep or slept in a group home (including now)? No 07/18/2023 CAGE ASSESSMENT Answer [...] drink first t shalom in the morning (EYE-CORPSMAN) to steady your nerves or to get [...] Radiology [address], 1st [place] [address] 11/19/2024 2:30 PM EDT Office Visit [place] [facility] [address] [place] [address] Wale Uriostegui MD [address] [place] [address] 12/14/2024 11:20 AM EDT Office Visit [facility] Endocrinology [address] [place] [phone] Paul Francisco MD [address] [place] [address] 12/22/2024 9:30 AM EDT Office Visit [facility] Otolaryngology [address], 3rd [place] [address] Aflredo Anderson MD [address] [place] [address] 05/20/2025 1:45 PM EST Office Visit [facility] [address] [place] [address] Terrence Quinn MD [address] [place] [address] documented as of this encounter [...] documented as of this encounter Care Teams Blood Donor Recruiter Relationship Specialty Start Date End Date Rick Brandt MD [address] [place] [address] PCP - General 09/21/24 Michael Lopez MD [address] [facility] [place] [address] 07/17/23 documented as of this encounter
--- OUTSIDE RECORDS SUMMARY | 2024-10-21 11:43 | XMS_ITS | Encounter Summary ---
Author Organization Healthcare Address [address] [place] [address] Care Team Providers Care Shift Supervisor Melting Name Role Phone Michael Lopez MD Unavailable [phone] Terrence Balderas DO Primary Care Provider [phone] Reason for Visit * Reason Comments Med Refill Encounter Details Date Type Department Care Team (Late st Contact Info) Description 08/30/2024 Refill [facility] [address], [address] [place] [address] Harris Green MD [address] [facility] [address] [place] [address] Hypogonadism in male Social History [...] drink first t shalom in the morning (EYE-POWER SCREWDRIVER OPERATOR) to steady your nerves or to get rid of a hangover? 0 07/19/2023 CAGE Questionnaire Score 0 024 Utilities Answer Date Recorded In the past 12 months has th e [employer], gas, oil, or water company threatened to [...] S Radiology [address], 1st [place] [address] 11/19/2024 2:30 PM EDT Office Visit [place] [facility] [address], [address]st [place] [address] Wale Uriostegui MD [address] [place] [address] 12/14/2024 11:20 AM EDT [facility] [address] [place] [address] Paul Francisco MD [address] [facility] [address] [place] [address] 12/22/2024 9:30 AM EDT Office Visit [facility] Otolaryngology [address], 3rd [place] [address] Alfredo Anderson MD [address] [place] [address] 05/20/2025 1:45 PM EST Office Visit [facility] [address] [place] [address] Terrence Quinn MD [address] [facility] [address] [place] [address] documented as of this [...] documented as of this encounter Care Teams Shift Supervisor Melting Relationship Specialty Start Date End Date Terrence Balderas DO [address] [place] [address] PCP - General 10/31/23 09/20/24 Michael Lopez MD [address] [place] [address] 07/17/23 documented as of this encounter
--- OUTSIDE RECORDS SUMMARY | 2024-10-21 11:43 | XMS_ITS | Encounter Summary ---
Author Organization Healthcare Address [address] [place] [address] Care Team Providers Care Msw Name Role Phone Michael Lopez MD Unavailable [phone] Terrence Balderas DO Primary Care Provider [phone] Encounter Details Date Type Department Care Team (Late st Contact Info) Description 09/07/2024 Telephone [facility] Endocrinology [address] [place] [address] Tammie Abel DO [address] [facility] [address] [place] [address] Social History Tobacco Use Types [...] place to sleep or slept in a nursing home (including now)? No 07/18/2023 CAGE ASSESSMENT [...] drink first t shalom in the morning (EYE-PIG MACHINE OPERATOR HELPER) to steady your nerves or to get rid of a hangover? 0 07/19/2023 CAGE Questionnaire Score 0 024 Utilities Answer Date Recorded In the past 12 months has th e [employer], gas, oil, or water company threatened to [...] 07/30. Had to perform manual [employer]IVA request #[id number] and was appropriate. I have sent in 1 month supply and must have labs completed next month for further refills. documented in this encounter Plan of Treatment Upcoming Encounters Date Type Department Care Team (Late st Contact Info) Description 11/19/2024 1:20 PM EDT Appointment [facility] Rad[facility] [address], 1st [place] [address] 11/19/2024 2:30 PM EDT Office Visit [place] [facility] [address], [address]st [place] [address] Wale Uriostegui MD [address] [place] [address] 12/14/2024 11:20 AM EDT Office Visit [facility] Endocrinology [address] [place] [phone] Paul Francisco MD [address] [facility] [address] [place] [address] 12/22/2024 9:30 AM EDT [facility] Otol[facility]ology [address], 3rd [place] [address] lAfredo Anderson MD [address] [place] [address] 05/20/2025 1:45 PM EST Office Visit [facility] Eye Care [address] [place] [address] Terrence Quinn MD [address] [place] [address] Scheduled Orders Name Type Priority [...] documented as of this encounter Care Teams Msw Relationship Specialty Start Date End Date Terrence Balderas DO [address] [place] [address] PCP - General 10/31/23 09/20/24 Michael Lopez MD [address] [place] [address] 07/17/23 documented as of this encounter
--- OUTSIDE RECORDS SUMMARY | 2024-10-21 11:43 | XMS_ITS | Clinical Summary ---
Author Organization [facility] Address [address] [place] [address] Care Team Providers Care Program Development Manager Name Role Phone Unavailable Primary Care Provider Unavailabl e Social History Tobacco Use Types Packs/Day Years Used Date Smoking Tobacco: Never Assessed Abuse Screen Answer Date Recorded Unsafe at Home or Work/School Not on file Feels Threatened by Someone? Not on file 12/2022 Does Anyone Keep You from Co ntacting Others or Doint Things Outside the Home? Not on file 01/07/2023 Physical Sign of Abuse Present Not on file 1 Housing Stability Answer Date Recorded Current Living Arrangements Not on file 12/29 Potentially Unsafe Housing Conditions Not on marleni e 01/07/2023 Family and Community Support Answer Benjie e Recorded Help with Day-to-Day Activities Not on file 01/07/2023 Lonely or Isolated Not on file 01/07/2023 Employment Answer Date Recorded Do you want help finding or keeping work or a clover b? Not on file 01/07/2023 Disabilities Answer Date Recorded Concentrating, Remembering, or Making Decisions Difficulty Not on file 01/07/2023 Doing Errands Independently Difficulty Not on fi le 01/07/2023 Education Answer Date Recorded Help with school or training? Not on file Preferred Language Not on file 01/07/2023 Sex and Gender Information Value Date Recorded Sex Assigned at Not on file Legal Sex Male 1:48 PM EDT Gender Identity Not on file Sexual Orientation Not on file Plan of Treatment Health Maintenance Due Date Last Done Comments ANNUAL PHYSICAL 1960 HEPATITIS C SCREENING 1960 TDAP/TD VACCINES (1 - Tdap) 1977 COLOGUARD 2003 COLON CANCER SCREENING 5 YEAR SIGMOIDOSCOPY 2003 COLONOSCOPY 2003 [address] CANCER SCREENING 2003 CT COLONOGRAPHY 2003 FECAL OCCULT BLOOD TEST 2003 FIT Testing (1 year) 2003 Pneumococcal Vaccine 50+ (1 of 1 - PCV) 2008 ZOSTER VACCINE (1 of 2) 2008 AAA SCREEN ONCE 2023 COVID-19 Vaccine ( - 2023- season) 2023 INFLUENZA VACCINE 12/29/2024
--- OUTSIDE RECORDS SUMMARY | 2024-10-21 11:43 | XMS_ITS | Encounter Summary ---
Author Organization Healthcare Address [address] [place] [address] Care Team Providers Care Distribution Agent Name Role Phone Michael Lopez MD Unavailable [phone] Terrence Balderas DO Primary Care Provider [phone] Reason for Visit * Reason Onset Date Comments Prior-authorization/insurance Verification 09/07 Encounter Details Date Type Department Care Team (Late st Contact Info) Description 09/07/2024 Telephone [facility] Endocrinology [address] [place] [address] Tammie Abel DO [address] [facility] [address] [place] [address] Prior-authorization/in surance Verification Social History [...] drink first t shalom in the morning (EYE-ORACLE BPM CONSULTANT) to steady your nerves or to get rid of a hangover? 0 07/19/2023 CAGE Questionnaire Score 0 024 Utilities Answer Date Recorded In the past 12 months has th e [employer], gas, oil, or water company threatened to [...] EDT Appointment [facility] [address], 1st [place] [address] 11/19/2024 2:30 PM EDT Office Visit [facility] [address], [address] [place] [address] Wale Uriostegui MD [address] [place] [address] 12/14/2024 11:20 AM EDT Office Visit [facility] Endocrinology [address] [place] [address] Paul Francicso MD [address] [place] [address] 12/22/2024 9:30 AM EDT Office Visit [facility] Otolaryngology [address], 3rd [place] [address] Alfredo Anderson MD [address] [place] [address] 05/20/2025 1:45 PM EST Office Visit [facility] Care [address] [place] [address] Terrence Quinn MD [address] [place] [address] documented as of this encounter Visit Diagnoses Not on filedocumented in this encounter Additional Health Concerns Infection Onset Date Last Indicated Resolved Time 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
--- OUTSIDE RECORDS SUMMARY | 2024-10-21 11:43 | XMS_ITS | Clinical Summary ---
Author Organization [employer] ([place], [place], [place], [place]) Address [address] [place] [address] Care Team Providers Care Ramp Lead Name Role Phone Unavailable Primary Care Provider Unavailabl e Social History Tobacco Use Types Packs/Day Years Used Date Smoking Tobacco: Never Assessed Sex and Gender Information Value Date Recorded Sex Assigned at Male 03/19/2024 9:50 AM LAB ANIMAL TECHNOLOGIST Legal Sex Male 9:50 AM LAB ANIMAL TECHNOLOGIST Gender Identity Male 03/19/2024 9:50 AM LAB ANIMAL TECHNOLOGIST Sexual Orientation Not on file Plan of Treatment Not on file
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
--- OUTSIDE RECORDS SUMMARY | 2024-10-21 11:43 | XMS_ITS | Encounter Summary ---
Author Organization Healthcare Address [address] [place] [address] Care Team Providers Care Delivery Assistant Name Role Phone Pcp, No Primary Care Provider Unavailabl e Michael Lopez MD Unavailable [phone] Terrence Balderas DO Primary Care Provider [phone] Rick Brandt MD Primary Care Provider [phone] Encounter Details Date Type Department Care Team (Late st Contact Info) Description 07/23/2023 Lab Requisition [facility] [address] [place] [address] Lorenzo Simpson MD [address] [facility] [address] [place] [address] Encounter for general adult medical [...] drink first t shalom in the morning (EYE-GRAIN BROKER) to steady your nerves or to get [...] Wish to be (Past 1 Month) No 4:00 PM EDT Amber Brock RN 2. [...] Radiology [address], 1st [place] [phone] 11/19/2024 2:30 PM EDT Office Visit [facility] [address], [address] [place] [address] Wale Uriostegui MD [address] [place] [address] 12/14/2024 11:20 AM EDT Office Visit [facility] Endocrinology [address] [place] [phone] Paul Francisco MD [address] [place] [address] 12/22/2024 9:30 AM EDT Office Visit [facility] Otolaryngology [address], 3rd [place] [address] Alfredo Anderson MD [address] [place] [address] 05/20/2025 1:45 PM EST Office Visit [facility] [address] [place] [address] Terrence Quinn MD [address] [place] [address] documented as of this encounter [...] n identified using the FDA Approved MALDI Lotour.comyper CA System Swab (Axilla and Groin) 07/23/2023 9:00 AM EDT 07/23/2023 9:39 AM EDT Lorenzo Simpson MD LAB MICROBIOLOGY - GEN ERAL ORDERABLES Final Result [facility] [address] [place] [address] * (ABNORMAL) Kelly auris Surveillance by PCR (07/23/2023 9:00 AM EDT) Kelly auris PCR Result Detected( A) Not Detected 07/24/2023 9:37 AM EDT HEALTHCARE LAB Swab (Axilla and Groin) 07/23/2023 9:00 AM EDT 07/23/2023 9:39 AM EDT Narrative HEALTHCARE LAB - 07/24/2023 9:37 AM EDT This PCR assay was developed and its performance characteristics determined by [facility] as appropriate for clinical purposes. This assay has not been cleared or approved by the FDA, but is performed in a CLIA regulated laboratory that is qualified to perform high-complexity testing. Lorenzo Simpson MD LAB MICROBIOLOGY - GEN ERAL ORDERABLES Final Result [facility] [address] [place] [address] documented in this encounter Visit Diagnoses Diagnosis [...] documented as of this encounter Care Teams Delivery Assistant Relationship Specialty Start Date End Date Pcp, No [address] [place] [address] PCP - General Family Medicine 07/17/23 10/30/23 Terrence Balderas DO [address] [place] [address] PCP - General 10/31/23 09/20/24 Rick Brandt MD [address] [place] [address] PCP - General 09/21/24 Michael Lopez MD [address] [place] [address] 07/17/23 documented as of this encounter
--- OUTSIDE RECORDS SUMMARY | 2024-10-21 11:43 | XMS_ITS | Referral Summary ---
Author Organization [employer] ([place], [place], [place], [place]) Address [address] [place] [address] Care Team Providers Care Industrial Custodian Name Role Phone Unavailable Primary Care Provider Unavailabl e Social History Tobacco Use Types Packs/Day Years Used Date Smoking Tobacco: Never Assessed Sex and Gender Information Value Date Recorded Sex Assigned at Male 03/19/2024 9:50 AM COMMUNITY HEALTH EDUCATION COORDINATOR Legal Sex Male 9:50 AM COMMUNITY HEALTH EDUCATION COORDINATOR Gender Identity Male 03/19/2024 9:50 AM COMMUNITY HEALTH EDUCATION COORDINATOR Sexual Orientation Not on file Plan of Treatment Not on file
--- OUTSIDE RECORDS SUMMARY | 2024-10-21 11:43 | XMS_ITS | Encounter Summary ---
Author Organization Healthcare Address [address] [place] [address] Care Team Providers Care Resource Management Specialist Name Role Phone Michael Lopez MD Unavailable [phone] Rick Brandt MD Primary Care Provider [phone] Encounter Details Date Type Department Care Team (Latest Contact Info) Description 10/19/2024 Travel Social History Tobacco Use Types Packs/Day [...] drink first t shalom in the morning (EYE-AUTO TECHNICIAN) to steady your nerves or to get [...] S Radiology [address] [place] [address] 11/19/2024 2:30 PM EDT Office Visit [place] [facility] [address] [place] [address] Wale Uriostegui MD [address] [place] [address] 12/14/2024 11:20 AM EDT Office Visit [facility] Endocrinology [address] [place] [phone] Paul Francisco MD [address] [place] [address] 12/22/2024 9:30 AM EDT Office Visit [facility] Otolaryngology [address], [address] [place] [address] Alfredo Anderson MD [address] [place] [address] 05/20/2025 1:45 PM EST Office Visit [facility] [address] [place] [address] Terrence Quinn MD [address] [place] [address] documented as of this encounter [...] documented as of this encounter Care Teams Resource Management Specialist Relationship Specialty Start Date End Date Rick Brandt MD [address] [place] [address] PCP - General 09/21/24 Michael Lopez MD [address] [facility] [address] 07/17/23 documented as of this encounter
--- OUTSIDE RECORDS SUMMARY | 2024-10-21 11:43 | XMS_ITS | Encounter Summary ---
Author Organization Healthcare Address [address] [place] [address] Care Team Providers Care Scalehouse Attendant Name Role Phone Michael Lopez MD Unavailable [phone] Rick Brandt MD Primary Care Provider [phone] Encounter Details Date Type Department Care Team (Late st Contact Info) Description 10/14/2024 Telephone [facility] Otol[facility]ology [address] [place] [address] Toribio Proctor ````````````````````[facility] - PACU - MAJOR, [facility] A Social History Tobacco Use Types Packs/Day Years [...] place to sleep or slept in a intermediate (including now)? No 07/18/2023 CAGE ASSESSMENT Answer [...] drink first t shalom in the morning (EYE-ELECTRICAL CONTROL ASSEMBLER) to steady your nerves or to get [...] encounter Miscellaneous Notes * Telephone Encounter - Toribio Proctor - 10/14/2024 6:04 PM EDT Error. documented in this encounter Plan of Treatment Upcoming Encounters Date Type Department Care Team (Late st Contact Info) Description 11/19/2024 1:20 PM EDT Appointment [facility]iology [address] [place] [address] 11/19/2024 2:30 PM EDT Office Visit [facility] [address] [place] [address] Wale Uriostegui MD [address] [place] [address] 12/14/2024 11:20 AM EDT Office Visit [facility] Endocrinology [address] [place] [phone] Paul Francisco MD [address] [place] [address] 12/22/2024 9:30 AM EDT Office Visit [facility] Otolaryngology [address] [place] [address] Alfredo Anderson MD [address] [place] [address] 05/20/2025 1:45 PM EST Office Visit [facility] [address] [place] [address] Terrence Quinn MD [address] [place] [address] documented as of this encounter [...] documented as of this encounter Care Teams Scalehouse Attendant Relationship Specialty Start Date End Date Rick Brandt MD [address] [place] [address] PCP - General 09/21/24 Michael Lopez MD [address] [place] [address] 07/17/23 documented as of this encounter
--- NOTE | 2024-10-21 12:21 | EXP.PAIN.SOA ---
[facility] Disclaimer: The information contained in this section may have been updated after the patient was seen, as this information can be updated by other users. 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 Patient states it did help some but not in a significant amount. He is still having quite a bit of pain with the left shoulder being worse than the right shoulder. He states with any type of increased activity or even trying to get dressed he has catching sensations into his shoulders. Patient is not interested in any additional help we may be able to provide. He does state that pain is interfering with his ability perform activities of daily living such as cooking and cleaning. Patient has continued conservative therapy with no additional changes. He does also state that his hips are doing pretty good still however does feel like it is slowly wearing off his previous injections. His Bobby has been reviewed and is appropriate. Review of Systems: General: No recent weight changes, no fever, no sleep disturbances Respiratory: No cough, no shortness of air, no recurring pulmonary infections Cardiovascular/peripheral vascular: No chest pain, no palpitations, no edema, no shortness of breath Gastrointestinal: No new onset incontinence, normal bowel movements reported Genitourinary: No new onset incontinence Musculoskeletal: Bilateral shoulder pain Psychiatric: [Normal mood/affect] Neurological: [Denies weakness in extremities], [denies balance issues] Pain at rest (0-10 scale): 5 Objective Objective:: Physical Exam: General: Alert and oriented x3, no acute distress, pleasant and cooperative Lungs: Respirations even and unlabored, symmetrical chest expansion Eyes: PERRL Musculoskeletal: Flexion and extension of bilateral shoulders somewhat guarded secondary to pain, [antalgic gait noted] Neurological: Speech clear, no gross sensory deficit Has patient had previous pain injection?: Yes Percent improvement in pain since last injection: Minimal Conservative treatment options previously tried: Home exercise plan Length of treatment: Longer than 12 weeks Meds Home Medications and Allergies Home Medications ?Medication ?Instructions ?Recorded ?Confirmed ?Type levothyroxine 50 mcg tablet 50 mcg PO DAILY THYROID 09/09/23 10/05/24 History oxycodone 5 mg tablet 5 mg PO BID PRN pain 30 days #60 10/08/23 10/05/24 Rx tabs atorvastatin 10 mg tablet See Rx Instructions .Route 12/04/23 10/05/24 Rx .COMPLEX #90 tabs baclofen 10 mg tablet 10 mg PO BID #28 tabs 04/07/24 10/05/24 Rx New Prescriptions to Start Prescriptions: Allergies Allergy/AdvReac Type Severity Reaction Status Date / Time No Known Allergies Allergy Verified 11/11/23 10:01 Assessment and Plan *Assessment and plan (1) Bilateral shoulder pain: Status: Acute Category: Medical Code(s): M25.511 - Pain in right shoulder; M25.512 - Pain in left shoulder Plan Patient is still experiencing significant pain in his bilateral shoulders with limited range of motion. I did discuss with the patient due to the fact he did not get significant relief with the intra-articular injections that it would be beneficial for us to try suprascapular nerve blocks. Risk and benefits were discussed with the patient and he would like to proceed forward with this plan of care. Patient has had chronic shoulder pain for longer than 3 months unrelieved by conservative treatment such as oral medications, heat and ice, topicals, at home stretching exercise for longer than 12 weeks. Patient will be scheduled for bilateral suprascapular nerve blocks. This will be done without fluoroscopic or ultrasound guidance. I will also order the patient a compounded cream. Patient has been instructed to contact the clinic with any concerns before the next appointment. Dr. De La Torre has reviewed this note and agrees with this plan of care. This note was dictated using voice recognition software and make contain errors or omissions. All injections are used with Lidocaine, Bupivacaine and dexamethasone. Occasionally urine drug screen is needed to verify patient's compliance with our office pain contract. This is ordered based off specific treatments related to chronic pain with the potential to abuse certain medications.
[2024-10-21 14:22] VITALS: BP 157/95; PULSE 98; RESP 18; O2SAT 96; BMI 28.2
== END 2024-10-21 23:59 | disposition home or self-care (01) ==
LOC: SC.PAIN 11:41
PROVIDERS: PCP Family Medicine; Visit Provider Nurse Practitioner Family
DX: M25.511 Pain in right shoulder (principal); M25.512 Pain in left shoulder
CPT/HCPCS: 99212; G0463

== ENCOUNTER 2024-11-18 08:25 | Outpatient (POV) | payer MEDICARE, MEDICAID, SELFPAY ==
[2024-11-18 08:33] VITALS: BP 140/85; PULSE 72; RESP 18; O2SAT 98; BMI 28.2
--- NOTE | 2024-11-18 09:19 | EXP.PAIN.SOA ---
[facility] Disclaimer: The information contained in this section may have been updated after the patient was seen, as this information can be updated by other users. 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 Patient rates his pain today currently at 3 out of 10 but states it will get much worse with increased activity. Patient denies any new falls or injuries. He does state that the right one is not as severe as the left. Patient is still using his compounded cream along with Aleve for some improvements. Patient does state that he would still like to see about getting these injections. His Bobby has been reviewed and is appropriate. Review of Systems: General: No recent weight changes, no fever, no sleep disturbances Respiratory: No cough, no shortness of air, no recurring pulmonary infections Cardiovascular/peripheral vascular: No chest pain, no palpitations, no edema, no shortness of breath Gastrointestinal: No new onset incontinence, normal bowel movements reported Genitourinary: No new onset incontinence Musculoskeletal: Bilateral shoulder pain Psychiatric: [Normal mood/affect] Neurological: [Denies weakness in extremities], [denies balance issues] Pain at rest (0-10 scale): 3 Objective Objective:: Physical Exam: General: Alert and oriented x3, no acute distress, pleasant and cooperative Lungs: Respirations even and unlabored, symmetrical chest expansion Eyes: PERRL Musculoskeletal: Flexion and extension of bilateral shoulders somewhat guarded secondary to pain, [antalgic gait noted] Neurological: Speech clear, no gross sensory deficit Has patient had previous pain injection?: No Conservative treatment options previously tried: Home exercise plan Length of treatment: Longer than 12 weeks Meds Home Medications and Allergies Home Medications ?Medication ?Instructions ?Recorded ?Confirmed ?Type levothyroxine 50 mcg tablet 50 mcg PO DAILY THYROID 09/09/23 11/18/24 History oxycodone 5 mg tablet 5 mg PO BID PRN pain 30 days #60 10/08/23 11/18/24 Rx tabs atorvastatin 10 mg tablet See Rx Instructions .Route 12/04/23 11/18/24 Rx .COMPLEX #90 tabs baclofen 10 mg tablet 10 mg PO BID #28 tabs 04/07/24 11/18/24 Rx New Prescriptions to Start Prescriptions: Allergies Allergy/AdvReac Type Severity Reaction Status Date / Time No Known Allergies Allergy Verified 11/11/23 10:01 Assessment and Plan *Assessment and plan (1) Bilateral shoulder pain: Status: Acute Category: Medical Code(s): M25.511 - Pain in right shoulder; M25.512 - Pain in left shoulder Plan I did review over with the patient regarding the denial and it did state due to the fact he did not have cancer. I did discuss with the patient that I will order x-ray imaging of his bilateral shoulders and proceed forward with an MRI without contrast of his left shoulder due to the chronic worsening pain and concerns that there is something more going on. We did discuss in future we will be resubmitting for the suprascapular nerve blocks once we have the advanced imaging. Patient agrees with this plan of care. He will return to clinic in 1 month. Patient has been instructed to contact the clinic with any concerns before the next appointment. Dr. De La Torre has reviewed this note and agrees with this plan of care. This note was dictated using voice recognition software and make contain errors or omissions. All injections are used with Lidocaine, Bupivacaine and dexamethasone. Occasionally urine drug screen is needed to verify patient's compliance with our office pain contract. This is ordered based off specific treatments related to chronic pain with the potential to abuse certain medications.
--- NOTE | 2024-11-22 14:33 | PC.NURSE ---
Contacted pt via phone per providers request to notify pt of need for continued conservative treatment for MRI PA submission. Notified pt that we will print him out home exercises and then follow up with him on those in 1 month and then be able to submit for an MRI. Pt verbalized understanding, states he would come to pick up man exercises.
== END 2024-11-18 23:59 | disposition home or self-care (01) ==
PROVIDERS: PCP Family Medicine; Visit Provider Nurse Practitioner Family
DX: M25.511 Pain in right shoulder (principal); M25.512 Pain in left shoulder
CPT/HCPCS: 99212; G0463

== ENCOUNTER 2024-12-16 09:20 | Outpatient (CLI) | payer MEDICARE, MEDICAID, SELFPAY ==
--- OUTSIDE RECORDS SUMMARY | 2024-10-19 09:30 | XMS_ITS | Encounter Summary ---
Author Organization Healthcare Address [address] 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 0 07/19/2023 CAGE Questionnaire Score 0 024 Utilities Answer Date Recorded In the past 12 months has th e [facility], gas, oil, or water company threatened to [...] evaluation and encouragedto pursue amplification through the [facility]. Beatriz Loera, [facility]-A Corporate Recycling Manager documented in this encounter Plan of Treatment Upcoming Encounters Date Type Department Care Team (Late st Contact Info) Description 12/22/2024 9:30 AM EDT Office Visit [facility] Otolaryngology [address] [place] [address] Alfredo Anderson MD [address] [place] [address] 04/12/2025 9:00 AM EST Office Visit [facility] Endocrinology [address] [place] [id number] (1), Liborio Dyer Fellow 05/20/2025 1:45 PM EST Office Visit [facility] [address] [place] [address] Terrence Quinn MD [address] [place] [address] 11/25/2025 9:30 AM EDT Appointment [facility] Radiology [address] [place] [address] 11/25/2025 11:30 AM EDT Office Visit [place] [facility] [address] [place] [address] Wale Uriostegui MD [address] [place] [address] documented as of this encounter Visit Diagnoses [...] documented as of this encounter Care Teams Microsoft Bi Developer Relationship Specialty Start Date End Date Rick Brandt MD [address] [place] [address] PCP - General 09/21/24 Michael Lopez MD [address] [place] [address] 07/17/23 documented as of this encounter
--- OUTSIDE RECORDS SUMMARY | 2024-10-19 10:00 | XMS_ITS | Encounter Summary ---
Author Organization Healthcare Address [address] [place] [address] Care Team Providers Care Cotton Sampler Name Role Phone Michael Lopez MD Unavailable [phone] Rick Brandt MD Primary Care Provider Reason for Visit * Reason Comments Cerumen Impaction Ear cleaning with a hearing test. Hearing loss. Encounter Details Date Type Department Care Team (Late st Contact Info) Description 10/19/2024 10:00 AM EDT Consult [facility] [address] [place] [address] Stephen Dubose MD [address] [place] [address] Sensorineural hearing loss (SNHL) of [...] drink first t shalom in the morning (EYE-WREATH MACHINE OPERATOR) to steady your nerves or to get rid of a hangover? 0 07/19/2023 CAGE Questionnaire Score 0 024 Utilities Answer Date Recorded In the past 12 months has th e [employer], gas, oil, or water [employer] threatened to shut off services in your [...] not included. 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 No medical problems that he [...] Normal Communication: verbal with good voice quality improvement coordinator and Face: normocephalic, no scars, lesions, masses [...] is a 64 y.o. male with bilateral ruys-zkhzqxv-gdex-right asymmetric sensorineural hearing loss, bilateral tinnitus, and [...] Description 12/22/2024 9:30 AM EDT Office Visit [facility] Otolaryngology [address] [place] [address] Alfredo Anderson MD [address] [facility] [address] [place] [address] 04/12/2025 9:00 AM EST Office Visit [facility] Endocrinology [address] [place] [phone] (1), Liborio Dyer Fellow 05/20/2025 1:45 PM EST Office Visit [facility] [address] [place] [address] Terrence Quinn MD [address] [place] [address] 11/25/2025 9:30 AM EDT Appointment [facility] [address] [place] [address] 11/25/2025 11:30 AM EDT Office Visit [place] [facility] [address] [place] [address] Wale Uriostegui MD [address] [facility] [address] [place] [address] documented as of this encounter Visit Diagnoses [...] documented as of this encounter Care Teams Cotton Sampler Relationship Specialty Start Date End Date Rick Brandt MD [address] [place] [address] PCP - General 09/21/24 Michael Lopez MD [address] [place] [address] 07/17/23 documented as of this encounter
--- OUTSIDE RECORDS SUMMARY | 2024-11-19 12:38 | XMS_ITS | Encounter Summary ---
Author Organization [facility] Address [address] [place] [address] Care Team Providers Care Receiver Bulk System Name Role Phone Michael Lopez MD Unavailable [phone] Rick Brandt MD Primary Care Provider [phone] Reason for Referral * Imaging (Routine) - Closed Specialty Diagnoses / Procedures Referred By Tera mccallmu Referred To Contact Radiology Diagnoses Benign neoplasm of right choroid Procedures MR Pituitary w and wo IV Contrast Wale Uriostegui MD [address] [address] Phone: tel: fax: Referral ID Status Reason Start Date Expiration Date Visits Re quested Visits Authorized [id number] Closed 05/07/2024 11/06/2025 1 1 Reason for Visit * Imaging (Routine) - Closed Specialty Diagnoses / Procedures Referred By Tera mccallum Referred To Contact Radiology Diagnoses Benign neoplasm of right choroid Procedures MR Pituitary w and wo IV Contrast Wale Uriostegui MD [address] [address] Phone: tel: fax: Referral ID Status Reason Start Date Expiration Date Visits Re quested Visits Authorized [id number] Closed 05/07/2024 11/06/2025 1 1 Encounter Details Date Type Department Care Team (Latest Contact Info) Description 11/19/2024 12:38 PM EDT - 11/19/2024 11:59 PM EDT Hospital Encounter [facility] [address], [address]st [place] [address] Benign neoplasm of right choroid [...] place to sleep or slept in a fpc (including now)? 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 0 07/19/2023 CAGE Questionnaire Score 0 024 Utilities Answer Date Recorded In the past 12 months has th e [employer], gas, oil, or water company threatened to [...] Description 12/22/2024 9:30 AM EDT Office Visit [facility] Otolaryngology [address], 3rd [place] [address] Alfredo Anderson MD [address] [facility] [address] [place] [address] 04/12/2025 9:00 AM EST Office Visit [facility] Endocrinology [address] [place] [phone] (1), Liborio Dyer Fellow 05/20/2025 1:45 PM EST Office Visit [facility] [address] [place] [address] Terrence Quinn MD [address] [place] [address] 11/25/2025 9:30 AM EDT Appointment [facility] [address] [place] [address] 11/25/2025 11:30 AM EDT Office Visit [facility] [address], [address] [place] [address] Wale Uriostegui MD [address] [facility] [address] [place] [address] documented as of this encounter [...] error, please notify the sender immediately at [phone] and permanently delete the original report and destroy any copies or printouts. Narrative 11/20/2024 11:08 PM EDT [facility] - Phone Outpatient NAME: Aimee Rodriguez DATE OF EXAM: 11/19/2024 Patient No: [id number] Physician: Angel Date of : 1960 Past Medical/Surgical History (entered by technologist): Symptoms/Reason For Exam (entered by technologist): pituitary Tech Notes (entered by technologist): gadobutrol (Gadavist) injection 10.3 mL given IV; Dx: Benign neoplasm of right choroid. 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 us Wale Uriostegui MD [facility] MRI PROCEDURES Final Resu lt documented in [...] documented as of this encounter Care Teams Receiver Bulk System Relationship Specialty Start Date End Date Rick Brandt MD [address] [place] [address] PCP - General 09/21/24 Michael Lopez MD [address] [place] [address] 07/17/23 documented as of this encounter
--- OUTSIDE RECORDS SUMMARY | 2024-11-19 14:30 | XMS_ITS | Encounter Summary ---
Author Organization [facility] Address [address] [place] [address] Care Team Providers Care Activities Director Scouting Name Role Phone Michael Lopez MD Unavailable [phone] Rick Brandt MD Primary Care Provider [phone] Reason for Referral * Imaging (Routine) - Pending Review Specialty Diagnoses / Procedures Referred By Contac t Referred To Contact Radiology Diagnoses Benign neoplasm of right choroid Procedures MR Pituitary w and wo IV Contrast Wale Uriostegui MD [address] [address] Phone: tel: fax: Referral ID Status Reason Start Date Expiration Date V isits Requested Visits Authorized [id number] Pending Review 11/19/2024 05/21/2026 1 1 Encounter Details Date Type Department Care Team (Late st Contact Info) Description 11/19/2024 2:30 PM EDT Office Visit [place] [facility] [address], [address] [place] [address] Wale Uriostegui MD [address] [facility] [place] [address] Benign neoplasm of right choroid [...] drink first t shalom in the morning (EYE-CUSTODIAL SUPERVISOR) to steady your nerves or to get rid of a hangover? 0 07/19/2023 CAGE Questionnaire Score 0 024 Utilities Answer Date Recorded In the past 12 months has th e [employer], gas, oil, or water [employer] threatened to shut off services in your [...] Description 12/22/2024 9:30 AM EDT Office Visit [place] [facility] Otol[facility]ology [address], 3rd [place] [address] Alfredo Anderson MD [address] [place] [address] 04/12/2025 9:00 AM EST Office Visit [facility] Endocrinology [address] [place] [phone] (1), Liborio Dyer Fellow 05/20/2025 1:45 PM EST Office Visit [facility] [address] [facility] [place] [address] Terrence Quinn MD [address] [place] [address] 11/25/2025 9:30 AM EDT Appointment [facility] [address] [place] [address] 11/25/2025 11:30 AM EDT Office Visit [place] [facility] [address] [place] [address] Wale Uriostegui MD [address] [place] [address] Scheduled Orders Name Type Priority [...] Kelly Auris Comment:Patient has alternative record with [employer] and Kelly auris was detected from surveillance swab 07/23/2023 07/23/2023 07/23/2023 Assessment Noted Time A fall risk assessment has been complete d for the patient 11/19/2024 2:34 PM EDT A Body Mass Index follow-up plan has been documented for the patient 10/19/2024 12:20 PM EDT documented as of this encounter Care Teams Activities Director Scouting Relationship Specialty Start Date End Date Rick Brandt MD [address] [place] [address] PCP - General 09/21/24 Michael Lopez MD [address] [place] [address] 07/17/23 documented as of this encounter
--- OUTSIDE RECORDS SUMMARY | 2024-12-14 11:00 | XMS_ITS | Encounter Summary ---
Author Organization Healthcare Address [address] [place] [address] Care Team Providers Care Renewal Specialist Name Role Phone Michael Lopez MD Unavailable [phone] Rick Brandt MD Primary Care Provider [phone] Reason for Referral * Consultation (Routine) - Authorized Specialty Diagnoses / Procedures Referred By Contac t Referred To Contact Diagnoses Hypothyroidism, secondary Liborio Dyer MD [facility] [address] Phone: tel: fax: Referral ID Status Reason Start Date Expiration Date V isits Requested Visits Authorized [id number] Authorized 12/14/2024 06/15/2026 1 1 Reason for Visit * Reason Comments Hypogonadism in male Encounter Details Date Type Department Care Team (Late st Contact Info) Description 12/14/2024 11:00 AM EDT Office Visit [facility] Endocrinology [address] [place] [address] Liborio Dyer MD [facility] [address] (1), Liborio Dyer Fellow Hypothyroidism, [...] drink first t shalom in the morning (EYE-HOGSHEAD STRIPPER) to steady your nerves or to get rid of a hangover? 0 07/19/2023 CAGE Questionnaire Score 0 024 Utilities Answer Date Recorded In the past 12 months has th e [employer], gas, oil, or water [employer] threatened to shut off services in your [...] 10:59 AM EDT documented in this encounter Plan of Treatment Upcoming Encounters Date Type Department Care Team (Late st Contact Info) Description 12/22/2024 9:30 AM EDT Office Visit [facility] Otolaryngology [address], [address] [place] [address] Alfredo Anderson MD [address] [place] [address] 04/12/2025 9:00 AM EST Office Visit [facility] Endocrinology [address] [place] [address] (1), Liborio Dyer Fellow 05/20/2025 1:45 PM EST Office Visit [facility] [address] [facility] [place] [address] Terrence Quinn MD [address] [place] [address] 11/25/2025 9:30 AM EDT Appointment [facility] [address] [place] [address] 11/25/2025 11:30 AM EDT Office Visit [place] [facility] [address] [place] [address] Wale Uriostegui MD [address] [place] [address] Scheduled Referrals Name Type Priority Associated Diagnoses Orde r Schedule Follow Up [facility] Outpatient Referral Routine Hypothyroidism, secondary Expected: 03/15/2025, Expires: 06/17/2026 documented as of this encounter Results * T4, free (12/14/2024 12:04 PM EDT) Free T4, Plasma 1.0 0.8 - 1.7 ng/dL 12/14/2024 3:04 PM EDT [facility] Blood Venous blood specimen / Unknown Venipuncture / Unknown 12/14/2024 12:04 PM EDT 12/14/2024 12:04 PM EDT us Liborio Dyer MD LAB BLOOD ORDERABLES Final Res ult [facility] [address] [place] [address] documented in this encounter Visit Diagnoses Diagnosis [...] documented as of this encounter Care Teams Renewal Specialist Relationship Specialty Start Date End Date Rick Brandt MD [address] [place] [address] PCP - General 09/21/24 Michael Lopez MD [address] [place] [address] 07/17/23 documented as of this encounter
--- OUTSIDE RECORDS SUMMARY | 2024-12-14 12:10 | XMS_ITS | Encounter Summary ---
Author Organization Healthcare Address [address] [place] [address] Care Team Providers Care Ear Pull Machine Operator Name Role Phone Michael Lopez MD Unavailable [phone] Rick Brandt MD Primary Care Provider [phone] Encounter Details Date Type Department Care Team (Latest Contact Info) Description 12/14/2024 12:10 PM EDT Clinical Support [address] [phone] Hypothyroidism, secondary Social History Tobacco Use Types Packs/Day Years [...] drink first t shalom in the morning (EYE-HAND SANDER) to steady your nerves or to get [...] Description 12/22/2024 9:30 AM EDT Office Visit [facility] Otolaryngology [address] [place] [address] Alfredo Anderson MD [address] [place] [address] 04/12/2025 9:00 AM EST Office Visit [facility] Endocrinology [address] [place] [address] (1), Liborio Dyer Fellow 05/20/2025 1:45 PM EST Office Visit [facility] Advanced Eye Care [address] [place] [address] Terrence Quinn MD [address] [place] [address] 11/25/2025 9:30 AM EDT Appointment [facility] [address] [place] [address] 11/25/2025 11:30 AM EDT Office Visit [place] [facility] [address] [place] [address] Wale Uriostegui MD [address] [place] [address] documented as of this encounter Procedures Procedure Name Priority Date/Time Associated Diagnosis Comments FREE T4, PLASMA Routine 12/14/2024 12:04 PM EDT Hypothyroidism, secondary documented in this encounter Results * T4, free (12/14/2024 12:04 PM EDT) Free T4, Plasma 1.0 0.8 - 1.7 ng/dL 12/14/2024 3:04 PM EDT [facility] Blood Venous blood specimen / Unknown Venipuncture / Unknown 12/14/2024 12:04 PM EDT 12/14/2024 12:04 PM EDT us Liborio Dyer MD LAB BLOOD ORDERABLES Final Res ult [facility] [address] [place] [address] documented in this encounter Visit Diagnoses Diagnosis Hypothyroidism, secondary Other specified acquired hypothyroidism documented in this encounter Additional Health Concerns [...] documented as of this encounter Care Teams Ear Pull Machine Operator Relationship Specialty Start Date End Date Rick Brandt MD [address] [place] [address] PCP - General 09/21/24 Michael Lopez MD [address] [place] [address] 07/17/23 documented as of this encounter
--- NOTE | 2024-12-16 09:28 | XR_ITS ---
FINAL REPORT CLINICAL HISTORY: L hip pain COMPARISON: None FINDINGS: LEFT HIP: Two views of the left hip with an AP view of the pelvis demonstrate no acute fracture or dislocation. There are severe degenerative changes of the left hip with complete loss of the joint space. There is spurring and subchondral sclerosis. Limited views of the right hip showed moderate to severe osteoarthritic change. IMPRESSION: Advanced osteoarthritic changes. Reviewed, Interpreted and Dictated by Zhang Barnes MD Transcribed by Manasa Pettit Authenticated and [facility]
--- NOTE | 2024-12-16 09:28 | XR_ITS ---
FINAL REPORT CLINICAL HISTORY: harman shoulder pain COMPARISON: None FINDINGS: Two views of the left shoulder show no evidence of acute displaced fracture or dislocation of the visualized bony architecture. Mild degenerative change. IMPRESSION: Mild degenerative change without acute bony abnormality. Reviewed, Interpreted and Dictated by Zhang Barnes MD Transcribed by Manasa Pettit Authenticated and [facility]
--- NOTE | 2024-12-16 09:28 | XR_ITS ---
FINAL REPORT CLINICAL HISTORY: harman shoulder pain COMPARISON: None FINDINGS: Two views of the right shoulder show no evidence of acute displaced fracture or dislocation of the visualized bony architecture. Mild degenerative change. IMPRESSION: Mild degenerative change without acute bony abnormality. Reviewed, Interpreted and Dictated by Zhang Barnes MD Transcribed by Manasa Pettit Authenticated and [facility]
--- OUTSIDE RECORDS SUMMARY | 2024-12-16 09:28 | XMS_ITS | Clinical Summary ---
Author Organization Healthcare Address [address] [place] [address] Care Team Providers Care Director Cost Name Role Phone Michael Lopez MD Unavailable [phone] Rick Brandt MD Primary Care Provider [phone] Allergies No known active allergies Medications * This document contains information received from the source organization and may not represent a complete record from that organization. oxyCODONE (Roxicodone) 5 MG immediate release tablet Take 1 tablet (5 mg) by mouth every 4 (four) hours if needed for severe pain. 30 tablet 024 Active Additional Information Patient not taking.Reported on 12/14/2024 atorvastatin (Lipitor) 20 MG tabletIndications :Hyperlipidemia, unspecified hyperlipidemia type Take 1 tablet (20 mg) by mouth 1 (one) time each day. 90 tablet 3 024 Active levothyroxine (Synthroid, Levoxyl) 100 MCG tabletIndications :Hypothyroidism, secondary Take 1 tablet by mouth daily. 30 tablet 11 025 2025 Active Salicylic Acid (COMPOUND W EX) Active amLODIPine (Norvasc) 5 MG tablet Take 1 tablet by mouth daily. 30 tablet 3 025 Active Testosterone 20.25 MG/ACT (1.62%) gelIndications:Hy pogonadism in male Place 20.25 mg on the skin daily. Must have labs completed in September for further refills. 75 g 4 025 2024 Active HYDROcodone-aceta minophen ([place]) 5-325 MG tablet Take 1 tablet (5 mg of hydrocodone) by mouth 2 (two) times a day. 022 2024 Discontinued gabapentin (Neurontin) 100 MG capsule Take 1 capsule (100 mg) by mouth. 2024 Discontinued Testosterone 20.25 MG/ACT (1.62%) gelIndications:Hy pogonadism in male Place 20.25 mg on the skin daily. Must have labs completed in September for further refills. 75 g 025 2024 Discontinued(R eorder) Active Problems Problem Noted Date Diagnosed Date [...] MIVF x24 hours PO fluids Berger catheter [id number] Rest of care per primary team Hydrocortisone [...] Encounters Date Type Department Care Team Description 12/15/2024 Results Follow-Up [facility] Endocrinology [address] [place] [address] Vanessa Barrera MBBS 12/14/2024 12:10 PM EDT Clinical Support [facility] [address] [place] [address] Hypothyroidism, secondary 12/14/2024 11:00 AM EDT Office Visit [facility] Endocrinology [address] [place] [address] Liborio Dyer MD (1), Liborio Dyer Fellow Hypothyroidism, secondary (Primary Dx); Hypogonadism in male 12/14/2024 Travel 11/19/2024 2:30 PM EDT Office Visit [facility] [address], 1st [place] [address] Wale Uriostegui MD Benign neoplasm of right choroid (Primary Dx) 11/19/2024 12:38 PM EDT - 11/19/2024 11:59 PM EDT Hospital Encounter [facility] [address], 1st [place] [address] Benign neoplasm of right choroid Discharge Disposition: Home or Self Care 11/19/2024 Travel 10/19/2024 10:00 AM EDT Consult [facility] Otolaryngology [address], 3rd [place] [address] Stephen Dubose MD Sensorineural hearing loss (SNHL) of both ears (Primary Dx); Asymmetrical hearing loss; Tinnitus of both ears; Bilateral impacted cerumen 10/19/2024 9:30 AM EDT Office Visit [facility] Audiology [address], [address] [place] [address] Beatriz Ly, Evaristo Asymmetrical sensorineural hearing loss (Primary Dx); Tinnitus, bilateral 10/19/2024 Travel 10/14/2024 Telephone [facility] Otolaryngology [address], [address] [place] [address] EsthelaToribio 09/21/2024 9:30 AM EDT Office Visit [facility] Otolaryngology [address], [address] [place] [address] Alfredo Anderson MD 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) (Primary Dx); Chronic rhinitis 09/21/2024 Travel from Last 3 Months Family History [...] drink first t shalom in the morning (EYE-EDUCATIONAL ASSISTANT) to steady your nerves or to [...] Pulse 73 12/14/2024 11:49 AM EDT Temperature 36.5 C (97.7 F) 07/26/2023 12:00 PM EDT Respiratory Rate 18 10/31/2023 12:15 PM EDT Oxygen Saturation 98% 11/19/2024 2:29 PM EDT Inhaled Oxygen Concentration - - Weight 103 kg (226 lb 3.1 oz) 12/14/2024 10:59 A M EDT Height 188 cm (6' 2 ) 12/14/2024 10:59 AM EDT Body Mass Index 29.04 12/14/2024 10:59 AM EDT Plan of Treatment Upcoming Encounters Date Type Department Care Team (Late st Contact Info) Description 12/22/2024 9:30 AM EDT Office Visit [facility] Otolaryngology [address], [address] [place] [address] Alfredo Anderson MD [address] [place] [address] 04/12/2025 9:00 AM EST Office Visit [facility] Endocrinology [address] [place] [address] (1), Liborio Dyer Fellow 05/20/2025 1:45 PM EST Office Visit [facility] [address] [place] [address] Terrence Quinn MD [address] [place] [address] 11/25/2025 9:30 AM EDT Appointment [facility] [address] [place] [address] 11/25/2025 11:30 AM EDT Office Visit [facility] [address], [address] [place] [address] Wale Uriostegui MD [address] [place] [address] (work) Health Maintenance Due Date Last Done Comments [facility]-Depression Screening 1960 [facility]-Medicare Annual Wellness (AWV) 1960 [facility]-Infant/Child/Adol SDOH Screenings 1960 [id number] Vaccine (#1) 1963 [facility]- SDOH Screenings 1976 [...] Completed 07/17/2023 [facility]-Obesity Intervention Completed 025, 10/19/2024, 10/19/2024, Additional history exists HPV Vaccines Aged Out [...] this topic Medical Devices Implanted Type Area Certified Coder Device Identifier Shelf Expiration Date Model / Serial / Lot Graft Dura Repair 2x2 [employer] - [id number] Implanted:Qty: 1 on 07/22/2023 by Wale Uriostegui MD at [facility]-[id number] 10/28/2025 LA.400 .025. [id number] / / [id number] Procedures Procedure Name Priority Date/Time Associated Diagnosis Comments FREE T4, PLASMA Routine 12/14/2024 12:04 PM EDT Hypothyroidism, secondary MR PITUITARY W AND WO IV CONTRAST Routine 11/19/2024 1:06 PM EDT Benign neoplasm of right choroid HEPATITIS C ANTIBODY - ED W/REFLEX TO HCV QUANT PCR STAT 07/17/2023 7:59 AM EDT from Last 3 Months or Most Recently Relevant to Health Maintenance Results * T4, free (12/14/2024 12:04 PM EDT) Free T4, Plasma 1.0 0.8 - 1.7 ng/dL 12/14/2024 3:04 PM EDT [facility] Blood Venous blood specimen / Unknown Venipuncture / Unknown 12/14/2024 12:04 PM EDT 12/14/2024 12:04 PM EDT us Libroio Dyer MD LAB BLOOD ORDERABLES Final Res ult [facility] [address] [place] [address] * MR Pituitary w and wo IV [...] error, please notify the sender immediately at [phone] and permanently delete the original report and destroy any copies or printouts. Narrative 11/20/2024 11:08 PM EDT [facility] - Phone Outpatient NAME: Aimee Rodriguez DATE OF EXAM: 11/19/2024 Patient No: [id number] Physician: Angel Date of : 1960 Past Medical/Surgical History (entered by technologist): Symptoms/Reason For Exam (entered by technologist): pituitary Tech Notes (entered by technologist): gadobutrol (Gadavist) injection 10.3 mL given IV; Dx: Benign neoplasm of right choroid. 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 us Wale Uriostegui MD IMG MRI PROCEDURES Final Resu lt * Hepatitis C Antibody - ED (07/17/2023 7:59 AM EDT) Hepatitis C Antibody Negative Negative 07/17/2023 9:17 AM EDT [facility] Blood Venous blood specimen / Unknown Venipuncture / Unknown 07/17/2023 7:59 AM EDT 07/17/2023 8:14 AM EDT us Maria Guadalupe Barth APRN LAB BLOOD ORDERABLES Final Result [facility] [address] [place] [address] from Last 3 Months or Most Recently [...] Patient has decision-making capacity? Yes Care Teams Director Cost Relationship Specialty Start Date End Date Rick Brandt MD [address] [place] [address] PCP - General 09/21/24 Michael Lopez MD [address] [place] [address] 07/17/23
--- OUTSIDE RECORDS SUMMARY | 2024-12-16 09:29 | XMS_ITS | Encounter Summary ---
Author Organization [employer] ([place], [place], [place], [place]) Address [address] [place] [address] Care Team Providers Care Binder And Box Builder Name Role Phone Unavailable Primary Care Provider Unavailabl e Encounter Details Date Type Department Care Team (Late st Contact Info) Description 10/01/2021 Transcribed Document [facility] [place] [facility] [place] [address] ProviderJoyce MD [facility] [place], [place] [id number] Social History Tobacco Use Types Packs/Day Years Used Date Smoking Tobacco: Never Assessed Sex and Gender Information Value Date Recorded Sex Assigned at Male 03/19/2024 9:50 AM CIGAR ROLLER Legal Sex Male 9:50 AM CIGAR ROLLER Gender Identity Male 03/19/2024 9:50 AM CIGAR ROLLER Sexual Orientation Not on file documented as [...]
--- OUTSIDE RECORDS SUMMARY | 2024-12-16 09:29 | XMS_ITS | Encounter Summary ---
Author Organization Healthcare Address [address] [place] [address] Care Team Providers Care Stone Processing Machine Operator Name Role Phone Michael Lopez MD Unavailable [phone] Rick Brandt MD Primary Care Provider [phone] Encounter Details Date Type Department Care Team (Late st Contact Info) Description 12/15/2024 Results Follow-Up [facility] Endocrinology [address] [place] [address] Vanessa Barrera MBBS [address] [place] [address] Social History Tobacco Use Types [...] place to sleep or slept in a detention (including now)? No 07/18/2023 CAGE ASSESSMENT Answer [...] drink first t shalom in the morning (EYE-CHINESE LANGUAGE PROFESSOR) to steady your nerves or to get rid of a hangover? 0 07/19/2023 CAGE Questionnaire Score 0 024 Utilities Answer Date Recorded In the past 12 months has th e [employer], gas, oil, or water company threatened to [...] Description 12/22/2024 9:30 AM EDT Office Visit [facility] Otolaryngology [address], [address]rd [place] [address] Alfredo Anderson MD [address] [place] [address] 04/12/2025 9:00 AM EST Office Visit [facility] Endocrinology [address] [place] [phone] (1), Liborio Dyer Fellow 05/20/2025 1:45 PM EST Office Visit [facility] [address] [facility] [place] [address] Terrence Quinn MD [address] [facility] [address] [place] [address] 11/25/2025 9:30 AM EDT Appointment [facility] [address] [place] [address] 11/25/2025 11:30 AM EDT Office Visit [facility] [address], [address] [place] [address] Wale Uriostegui MD [address] [place] [address] documented as of this encounter [...] documented as of this encounter Care Teams Stone Processing Machine Operator Relationship Specialty Start Date End Date Rick Brandt MD [address] [place] [address] PCP - General 09/21/24 Michael Lopez MD [address] [place] [address] 07/17/23 documented as of this encounter
--- OUTSIDE RECORDS SUMMARY | 2024-12-16 09:29 | XMS_ITS | Encounter Summary ---
Author Organization Healthcare Address [address] [place] [address] Care Team Providers Care Interior Design Program Chair Name Role Phone Pcp, No Primary Care Provider Unavailabl e Michael Lopez MD Unavailable [phone] Terrence Balderas DO Primary Care Provider [phone] Rick Brandt MD Primary Care Provider [phone] Encounter Details Date Type Department Care Team (Late st Contact Info) Description 07/21/2023 Ophth Exam [facility] [address] [place] [address] Ryan Romero MD [address] [place] [address] Social History Tobacco Use Types [...] drink first t shalom in the morning (EYE-LAND DEVELOPMENT MANAGER) to steady your nerves or to get [...] Description 12/22/2024 9:30 AM EDT Office Visit [facility] Otolaryngology [address], [address] [place] [address] Alfredo Anderson MD [address] [place] [address] 04/12/2025 9:00 AM EST Office Visit [facility] Endocrinology [address] [place] [address] (1), Liborio Dyer Fellow 05/20/2025 1:45 PM EST Office Visit [facility] [address] [place] [address] Terernce Quinn MD [address] [place] [address] 11/25/2025 9:30 AM EDT Appointment [facility] [address] [place] [address] 11/25/2025 11:30 AM EDT Office Visit [facility] [address] [place] [address] Wale Uriostegui MD [address] [facility] [address] [place] [address] documented as of this encounter Visit Diagnoses [...] documented as of this encounter Care Teams Interior Design Program Chair Relationship Specialty Start Date End Date Pcp, No [address] [place] [address] PCP - General Family Medicine 07/17/23 10/30/23 Terrence Balderas DO [address] [place] [address] PCP - General 10/31/23 09/20/24 Rick Brandt MD [address] [place] [address] PCP - General 09/21/24 Michael Lopez MD [address] [place] [address] 07/17/23 documented as of this encounter
--- OUTSIDE RECORDS SUMMARY | 2024-12-16 09:29 | XMS_ITS | Encounter Summary ---
Author Organization [employer] ([place], [place], [place], [place]) Address [address] [place] [address] Care Team Providers Care Safe Expert Name Role Phone Unavailable Primary Care Provider Unavailabl e Encounter Details Date Type Department Care Team (Late st Contact Info) Description 09/29/2021 Transcribed Document [facility] [place] Family Medicine [facility] [place] [address] ProviderJoyce MD [facility] [place] [address] Social History Tobacco Use Types Packs/Day Years Used Date Smoking Tobacco: Never Assessed Sex and Gender Information Value Date Recorded Sex Assigned at Male 03/19/2024 9:50 AM OUTPATIENT ADMITTING CLERK Legal Sex Male 9:50 AM OUTPATIENT ADMITTING CLERK Gender Identity Male 03/19/2024 9:50 AM OUTPATIENT ADMITTING CLERK Sexual Orientation Not on file documented [...]
--- OUTSIDE RECORDS SUMMARY | 2024-12-16 09:29 | XMS_ITS | Encounter Summary ---
Author Organization Healthcare Address [address] [place] [address] Care Team Providers Care Windlasser Name Role Phone Pcp, No Primary Care Provider Unavailabl e Michael Lopez MD Unavailable [phone] Terrence Balderas DO Primary Care Provider [phone] Rick Brandt MD Primary Care Provider [phone] Encounter Details Date Type Department Care Team (Late st Contact Info) Description 07/23/2023 Lab Requisition [facility] [address] [place] [address] Lorenzo Simpson MD [address] [facility] [address] [place] [address] Encounter for general adult medical [...] to sleep or slept in a senior care (including now)? No 07/18/2023 CAGE ASSESSMENT Answer [...] drink first t shalom in the morning (EYE-PHOTOFLASH POWDER MIXER) to steady your nerves or to get [...] Description 12/22/2024 9:30 AM EDT Office Visit [facility] Otolaryngology [address], [address] [place] [address] Alfredo Anderson MD [address] [place] [address] 04/12/2025 9:00 AM EST Office Visit [facility] Endocrinology [address] [place] [address] (1), Liborio Dyer Fellow 05/20/2025 1:45 PM EST Office Visit [facility] [address] [place] [address] Terrence Quinn MD [address] [place] [address] 11/25/2025 9:30 AM EDT Appointment [facility] [address] [place] [address] 11/25/2025 11:30 AM EDT Office Visit [facility] [address] [place] [address] Wale Uriostegui MD [address] [place] [address] documented as of this encounter [...] bee n identified using the FDA Approved [employer] Interactive[employer] CA System Swab (Axilla and Groin) 07/23/2023 9:00 AM EDT 07/23/2023 9:39 AM EDT Lorenzo Simpson MD LAB MICROBIOLOGY - GEN ERAL ORDERABLES Final Result [facility] [address] [place] [address] * (ABNORMAL) Kelly auris Surveillance by PCR (07/23/2023 9:00 AM EDT) Kelly auris PCR Result Detected( A) Not Detected 07/24/2023 9:37 AM EDT [facility] Swab (Axilla and Groin) 07/23/2023 9:00 AM EDT 07/23/2023 9:39 AM EDT Narrative [facility] - 07/24/2023 9:37 AM EDT This PCR assay was developed and its performance characteristics determined by [facility] as appropriate for clinical purposes. This assay has not been cleared or approved by the FDA, but is performed in a CLIA regulated laboratory that is qualified to perform high-complexity testing. Lorenzo Simpson MD LAB MICROBIOLOGY - GEN ERAL ORDERABLES Final Result [facility] [address] [place] [address] documented in this encounter Visit Diagnoses Diagnosis [...] documented as of this encounter Care Teams Windlasser Relationship Specialty Start Date End Date Pcp, No [address] [place] [address] PCP - General Family Medicine 07/17/23 10/30/23 Terrence Balderas DO [address] [place] [address] PCP - General 10/31/23 09/20/24 Rick Brandt MD [address] [place] [address] PCP - General 09/21/24 Michael Lopez MD [address] [place], [place] [id number] 07/17/23 documented as of this encounter
--- OUTSIDE RECORDS SUMMARY | 2024-12-16 09:29 | XMS_ITS | Clinical Summary ---
Author Organization [facility] Address [address] [place] [address], [address] [place] [address] Care Team Providers Care Health And Social Care Teacher Name Role Phone Unavailable Primary Care [...]
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
--- OUTSIDE RECORDS SUMMARY | 2024-12-16 09:29 | XMS_ITS | Encounter Summary ---
Author Organization [employer] ([place]) Address [address] [place] [address] Care Team Providers Care Spindle Carver Name Role Phone Unavailable Primary Care Provider Unavailabl e Encounter Details Date Type Department Care Team (Late st Contact Info) Description 09/29/2021 Transcribed Document [facility] [place] Medicine [address] [place] [address] ProviderJoyce MD [address] [place], [place] [id number] Social History Tobacco Use Types Packs/Day Years Used Date Smoking Tobacco: Never Assessed Sex and Gender Information Value Date Recorded Sex Assigned at Male 03/19/2024 9:50 AM VEGETABLE BUNCHER Legal Sex Male 9:50 AM VEGETABLE BUNCHER Gender Identity Male 03/19/2024 9:50 AM VEGETABLE BUNCHER Sexual Orientation Not on file documented as [...]
--- OUTSIDE RECORDS SUMMARY | 2024-12-16 09:29 | XMS_ITS | Encounter Summary ---
Author Organization [facility] Address [address] [place] [address] Care Team Providers Care Casino Enforcement Agent Name Role Phone Michael Lopez MD Primary Care Provider [phone] Pcp, No Primary Care Provider Unavailabl e Michael Lopez MD Unavailable [phone] Terrence Balderas DO Primary Care Provider [phone] Rick Brandt MD Primary Care Provider [phone] Reason for Referral * Consultation (Routine) - Closed Specialty Diagnoses / Procedures Referred By Contelina t Referred To Contact Neurosurgery Diagnoses Cervical nerve root impingement Cervical osteophyte Lumbar nerve root impingement Lumbar foraminal stenosis Michael Lopez MD [address] [place] [address] Phone: tel: fax: Referral ID Status Reason Start Date Expiration Date V isits Requested Visits Authorized [id number] Closed Specialty Services Required 11/02/2021 05/04/2023 1 1 Encounter Details Date Type Department Care Team (Late st Contact Info) Description 11/02/2021 [facility] [address] [place] [phone] Michael Lopez MD [address] [place] [address] Cervical nerve root impingement (Primary Dx); [...] Description 12/22/2024 9:30 AM EDT Office Visit [facility] Otolaryngology [address], [address] [place] [phone] Alfredo Anderson MD [address] [place] [address] 04/12/2025 9:00 AM EST Office Visit [facility] Endocrinology [address] [place] [phone] (1), Liborio Dyer Fellow 05/20/2025 1:45 PM EST Office Visit [facility] [address] [facility] [place] [address] Terrence Quinn MD [address] [place] [address] 11/25/2025 9:30 AM EDT Appointment [facility] [address] [place] [address] 11/25/2025 11:30 AM EDT Office [facility] [address] [place] [address] Wale Uriostegui MD [address] [place] [address] Scheduled Referrals Name Type Priority [...] documented as of this encounter Care Teams Casino Enforcement Agent Relationship Specialty Start Date End Date Michael Lopez MD [address] [place] [address] PCP - General 12/07/21 07/16/[address] [place] [address] PCP - General Family Medicine 07/17/23 10/30/23 Terrence Balderas DO [address] [place] [address] PCP - General 10/31/23 09/20/24 Rick Brandt MD [address] [place] [address] PCP - General 09/21/24 Michael Lopez MD [address] [place] [address] 07/17/23 documented as of this encounter
--- OUTSIDE RECORDS SUMMARY | 2024-12-16 09:29 | XMS_ITS | Encounter Summary ---
Author Organization Healthcare Address [address] [place] [address] Care Team Providers Care Lead Pressman Roto Gravure Printing Name Role Phone Michael Lopez MD Unavailable [phone] Rick Brandt MD Primary Care Provider [phone] Encounter Details Date Type Department Care Team [...] place to sleep or slept in a chcf (including now)? No 07/18/2023 CAGE ASSESSMENT Answer [...] drink first t shalom in the morning (EYE-HEAD INSPECTOR AND CENTER MARKER) to steady your nerves or to get [...] Description 12/22/2024 9:30 AM EDT [facility] [address], 3rd [place] [address] Alfredo Anderson MD [address] [place] [address] 04/12/2025 9:00 AM EST Office Visit [facility] Endocrinology [address] [place] [address] (1), Liborio Dyer Fellow 05/20/2025 1:45 PM EST Office Visit [facility] [address] [place] [address] Terrence Quinn MD [address] [place] [address] 11/25/2025 9:30 AM EDT Appointment [facility] [address] [place] [address] 11/25/2025 11:30 AM EDT Office Visit [place] [facility] [address] [place] [address] Wale Uriostegui MD [address] [place] [address] documented as of this encounter [...] documented as of this encounter Care Teams Lead Pressman [employer] Printing Relationship Specialty Start Date End Date Rick Brandt MD [address] [place] [address] PCP - General 09/21/24 Michael Lopez MD [address] [place] [address] 07/17/23 documented as of this encounter
--- OUTSIDE RECORDS SUMMARY | 2024-12-16 09:29 | XMS_ITS | Encounter Summary ---
Author Organization Healthcare Address [address] [place] [address] Care Team Providers Care Save All Operator Name Role Phone Michael Lopez MD Unavailable [phone] Rick Brandt MD Primary Care Provider [phone] Encounter Details Date Type Department Care Team (Latest Contact Info) Description 12/14/2024 Travel Social History Tobacco Use Types Packs/Day [...] drink first t shalom in the morning (EYE-PICU NURSE) to steady your nerves or to get [...] Description 12/22/2024 9:30 AM EDT Office Visit [facility] Otol[facility]ology [address], 3[address] [place] [address] Alfredo Anderson MD [address] [place] [address] 04/12/2025 9:00 AM EST Office Visit [facility] Endocrinology [address] [place] [address] (1), Liborio Dyer Fellow 05/20/2025 1:45 PM EST Office Visit [facility] [address] [place] [address] Terrence Quinn MD [address] [place] [address] 11/25/2025 9:30 AM EDT Appointment [facility] [address] [place] [address] 11/25/2025 11:30 AM EDT Office Visit [place] [facility] [address] [place] [address] Wale Uriostegui MD [address] [place] [address] documented as of this encounter [...] documented as of this encounter Care Teams Save All Operator Relationship Specialty Start Date End Date Rick Brandt MD [address] [place] [address] PCP - General 09/21/24 Michael Lopez MD [address] [place] [address] 07/17/23 documented as of this encounter
--- OUTSIDE RECORDS SUMMARY | 2024-12-16 09:29 | XMS_ITS | Encounter Summary ---
Author Organization Healthcare Address [address] [place] [address] Care Team Providers Care Wound Care Nurse Name Role Phone Michael Lopez MD Unavailable [phone] Rick Brandt MD Primary Care Provider [phone] Encounter Details Date Type Department Care Team (Latest Contact Info) Description 11/19/2024 Travel Social History Tobacco Use Types Packs/Day [...] drink first t shalom in the morning (EYE-KNOWLEDGE MANAGEMENT CONSULTANT) to steady your nerves or to [...] Description 12/22/2024 9:30 AM EDT Office Visit [facility]ology [address] [place] [address] Alfredo Anderson MD [address] [place] [address] 04/12/2025 9:00 AM EST Office Visit [facility] Endocrinology [address] [place] [address] (1), Liborio Dyer Fellow 05/20/2025 1:45 PM EST Office Visit [facility] [address] [place] [address] Terrence Quinn MD [address] [place] [address] 11/25/2025 9:30 AM EDT Appointment [facility] [address] [place] [address] 11/25/2025 11:30 AM EDT Office Visit [place] [facility] [address] [place] [address] Wale Uriostegui MD [address] [place] [address] documented as of this encounter [...] documented as of this encounter Care Teams Wound Care Nurse Relationship Specialty Start Date End Date Rick Brandt MD [address] [place] [address] PCP - General 09/21/24 Michael Lopez MD [address] [place] [address] 07/17/23 documented as of this encounter
--- OUTSIDE RECORDS SUMMARY | 2024-12-16 09:29 | XMS_ITS | Clinical Summary ---
Author Organization [employer] ([place], [place], [place], [place]) Address [address] [place] [address] Care Team Providers Care Furniture Finisher Helper Name Role Phone Unavailable Primary Care Provider Unavailabl e Social History Tobacco Use Types Packs/Day Years Used Date Smoking Tobacco: Never Assessed Sex and Gender Information Value Date Recorded Sex Assigned at Male 03/19/2024 9:50 AM SENIOR PUBLICATIONS SPECIALIST Legal Sex Male 9:50 AM SENIOR PUBLICATIONS SPECIALIST Gender Identity Male 03/19/2024 9:50 AM SENIOR PUBLICATIONS SPECIALIST Sexual Orientation Not on file Plan of Treatment Not on file
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
--- OUTSIDE RECORDS SUMMARY | 2024-12-16 09:29 | XMS_ITS | Referral Summary ---
Author Organization [employer] ([place], [place], [place], [place]) Address [address] [place] [address] Care Team Providers Care Compounding Assistant Name Role Phone Unavailable Primary Care Provider Unavailabl e Social History Tobacco Use Types Packs/Day Years Used Date Smoking Tobacco: Never Assessed Sex and Gender Information Value Date Recorded Sex Assigned at Male 03/19/2024 9:50 AM DROPHAMMER OPERATOR Legal Sex Male 9:50 AM DROPHAMMER OPERATOR Gender Identity Male 03/19/2024 9:50 AM DROPHAMMER OPERATOR Sexual Orientation Not on file Plan of Treatment Not on file
--- OUTSIDE RECORDS SUMMARY | 2024-12-16 09:29 | XMS_ITS | Clinical Summary ---
Author Organization [facility] Address [address] [place] [address] Care Team Providers Care Food Sampler Name Role Phone Unavailable Primary Care Provider [...] 2023 COVID-19 Vaccine ( - 2023- season) 2024 INFLUENZA VACCINE 12/29/2024
--- OUTSIDE RECORDS SUMMARY | 2024-12-16 09:29 | XMS_ITS | Encounter Summary ---
Author Organization [employer] ([place], [place], [place], [place]) Address [address] [place] [address] Care Team Providers Care Soil Scientist Name Role Phone Unavailable Primary Care Provider Unavailabl e Encounter Details Date Type Department Care Team (Late st Contact Info) Description 09/29/2021 Transcribed Document [facility] [place] Family Medicine [facility] [place] [address] ProviderJoyce MD [facility] [place] [id number] Social History Tobacco Use Types Packs/Day Years Used Date Smoking Tobacco: Never Assessed Sex and Gender Information Value Date Recorded Sex Assigned at Male 03/19/2024 9:50 AM SEMI CONDUCTOR ASSEMBLER Legal Sex Male 9:50 AM SEMI CONDUCTOR ASSEMBLER Gender Identity Male 03/19/2024 9:50 AM SEMI CONDUCTOR ASSEMBLER Sexual Orientation Not on file documented as of this encounter Miscellaneous Notes * Cerner Conversion Note - Historical ProviderMD - 09/29/2021 8:26 PM CDT Electronically signed by Gonzalo [facility] Conversion Barrel Marker Eliceo at 07/15/2022 11:29 AM CDT documented in this encounter Plan of Treatment Not on file documented as of this encounter Visit Diagnoses Not on filedocumented in this encounter
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
== END 2024-12-16 23:59 | disposition home or self-care (01) ==
LOC: RAD 09:21
PROVIDERS: PCP Family Medicine; Visit Provider Nurse Practitioner Family
DX: M16.12 Unilateral primary osteoarthritis, left hip (principal); M19.012 Primary osteoarthritis, left shoulder; M19.011 Primary osteoarthritis, right shoulder
CPT/HCPCS: 73030; 73502

== ENCOUNTER 2024-12-29 14:32 | Outpatient (CLI) | payer MEDICARE, MEDICAID, SELFPAY ==
--- OUTSIDE RECORDS SUMMARY | 2024-11-19 12:38 | XMS_ITS | Encounter Summary ---
Author Organization [facility] Address [address] [place] [address] Care Team Providers Care Clinical Lab Clerk Name Role Phone Michael Lopez MD Unavailable Rick Brandt MD Primary Care Provider [phone] Reason for Referral * Imaging (Routine) - Closed Specialty Diagnoses / Procedures Referred By Tera mccallum Referred To Contact Radiology Diagnoses Benign neoplasm of right choroid Procedures MR Pituitary w and wo IV Contrast Wale Uriostegui MD [address] [address] Phone: tel: fax: Referral ID Status Reason Start Date Expiration Date Visits Re quested Visits Authorized [id number] Closed 05/07/2024 11/06/2025 1 1 Reason for Visit * Imaging (Routine) - Closed Specialty Diagnoses / Procedures Referred By Tera mccallum Referred To Contact Radiology Diagnoses Benign neoplasm of right choroid Procedures MR Pituitary w and wo IV Contrast Wale Uriostegui MD [address] [address] Phone: tel: fax: Referral ID Status Reason Start Date Expiration Date Visits Re quested Visits Authorized [id number] Closed 05/07/2024 11/06/2025 1 1 Encounter Details Date Type Department Care Team (Latest Contact Info) Description 11/19/2024 12:38 PM EDT - 11/19/2024 11:59 PM EDT Hospital Encounter [facility] [address], [address]st [place] [address] Benign neoplasm of right choroid Discharge Disposition: Home or Self Care Social History Tobacco Use Types Packs/Day Years [...] drink first t 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 0 07/19/2023 CAGE Questionnaire Score 0 024 Utilities Answer Date Recorded In the past 12 months has th e [employer], gas, oil, or water company threatened to shut off services in your home? No 07/18/2023 Sex and Gender Information Value Date Recorded Sex Assigned at Not on file Legal Sex Male 6:55 PM EDT Gender Identity Not on file Sexual Orientation Not on file documented as of this encounter Medications at Time of Discharge atorvastatin (Lipitor) 20 MG tabletIndications:Hy perlipidemia, unspecified hyperlipidemia type Take 1 tablet (20 mg) by mouth 1 (one) time each day. 90 tablet 3 12/18/2023 levothyroxine (Synthroid, Levoxyl) 100 MCG tabletIndications:Hy pothyroidism, secondary Take 1 tablet by mouth daily. 30 tablet 11 06/29/2024 oxyCODONE (Roxicodone) 5 MG immediate release tablet Take 1 tablet (5 mg) by mouth every 4 (four) hours if needed for severe pain. 30 tablet 07/26/2023 Salicylic Acid (COMPOUND W EX) 10/29/2024 Testosterone 20.25 MG/ACT (1.62%) gelIndications:Hypog onadism in male Place 20.25 mg on the skin daily. Must have labs completed in September for further refills. 75 g 09/07/2024 5 documented as of this encounter Miscellaneous Notes * Emely Antunez N - 11/19/2024 12:55 PM EDT Images from the original note were not included. 1639 Caring for Yourself after Contrast Imaging If you had ORAL contrast: ? You can go back to your normal diet and activities as tolerated. ? Drink plenty of fluids, unless told otherwise. If you had IV contrast: ? You can go back to your normal diet and activities as tolerated. ? Drink plenty of fluids, unless told otherwise. ? Leave a bandage on the site for 30 minutes (where the IV was inserted or blood was drawn). If you had Intravesical (bladder) contrast: ? Return to normal diet and activity. What you need to know about delayed reaction to IV contrast What is IV Contrast? ? Contrast is a dye that is put into your body through an IV. ? It is used for imaging scans such as CT scans and MRIs. ? The contrast makes blood vessels, organs and other parts of your body show up better on the scan. What do I need to do after IV contrast? ? Drink lots of fluids. This will help flush the contrast out of your system. ? Drink 2-3 extra glasses or bottles of water within 4 hours of your scan. What is a contrast reaction? ? A contrast reaction is a bad side effect from the contrast dye. ? It is rare but it does happen. ? They can be mild - such as sneezing, itching, or hives. ? They can be severe - such as trouble breathing, throat swelling, and irregular heart beat. When do these reactions happen? ? They often happen right after the contrast is injected. ? Some happen hours after going home. Go to the nearest Emergency Department right away if you have any of these symptoms after you leavethe clinic or hospital. ? Sneezing ? Itching in your mouth, throat, eyes, ears, or skin ? Rash or hives ? Throwing up or stomach sickness ? High heart rate or ?racing? of your heart ? Feeling dizzy or woozy ? Feeling short of breath or like you can?t take a deep breath ? Feeling very anxious for no other reason It is very important that these reactions be treated. Tell the doctor or nurse that you are having a reaction to IV contrast dye. Do not ignore any sign of a reaction! All reactions must be assessed by a doctor. Call 911 if you are alone and your reaction is more than mild sneezing or itching. If you have a mild reaction, call to speak with a Radiologist, explain that you havehad a contrast reaction, as this needs to be added to your medical record. documented in this encounter Plan of Treatment Upcoming Encounters Date Type Department Care Team (Late st Contact Info) Description 03/23/2025 9:30 AM EST Office Visit [facility] Otolaryngology [address], 3rd [place] [address] Alfredo Anderson MD [address] [facility] [address] [place] [address] 04/12/2025 9:00 AM EST Office Visit [facility] [place] [phone] (1), Liborio Dyer Fellow 05/20/2025 1:45 PM EST Office Visit [facility] [address] [place] [address] Terrence Quinn MD [address] [place] [address] 11/25/2025 9:30 AM EDT Appointment [facility] [address] [place] [address] 11/25/2025 11:30 AM EDT Office Visit [facility] [address], 1st [place] [address] Wale Uriostegui MD [address] [facility] [address] [place] [address] documented as of this encounter Procedures Procedure Name Priority Date/Time Associated Diagnosis Comments MR PITUITARY W AND WO IV CONTRAST Routine 11/19/2024 1:06 PM EDT Benign neoplasm of right choroid documented in this encounter Results * MR Pituitary w and wo IV Contrast (11/19/2024 1:06 PM EDT) Anatomical Region Laterality Modality Head Magnetic Resonan ce Impressions 11/20/2024 11:08 PM EDT 1. Postoperative changes in the sella turcica with no imaging findings of recurrent adenoma 2. 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 This report has been electronically signed and verified by the Radiologist whose name is printed above. This report contains privileged and confidential information and is intended solely for the use of the individual or entity to which it is addressed. If you are not the intended recipient of this report, you are hereby notified that any copying, distribution, dissemination or action taken in relation to the contents of this report is strictly prohibited and may be unlawful. If you have received this report in error, please notify the sender immediately at [phone] and permanently delete the original report and destroy any copies or printouts. Narrative 11/20/2024 11:08 PM EDT [facility] - Phone Outpatient NAME: Aimee Rodriguez DATE OF EXAM: 11/19/2024 Patient No: [id number] Physician: Angel Date of : 1960 Past Medical/Surgical History (entered by technologist): Symptoms/Reason For Exam (entered by technologist): pituitary Tech Notes (entered by technologist): gadobutrol (Gadavist) injection 10.3 mL given IV; Dx: Benign neoplasm of right choroid. 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 He also has hypogonadism, secondary hypothyroid, and secondary adrenal insufficiency. Doing well, no trouble with lid lag... Additional History (per [facility]): Pituitary macroadenoma, apoplexy, status post resection EXAMINATION: MRI pituitary without and with intravenous contrast TECHNIQUE: High resolution multiplanar MR images were obtained through the sella turcica both before and after intravenous contrast. Gadavist 10.3 mL was administered intravenously Images were obtained on 3T MRI COMPARISON: Prior MRI sella 05-07-2024 FINDINGS: Hyperintensity in the dorsal sella is a combination of fat in the dorsum and T1 hyperintense posterior lobe. Sella turcica is enlarged. Infundibulum inserts on the left lateral normal gland. In the right lateral sella there is nonenhancing T2 hyperintense soft tissue from postoperative change. Lateral dural wall of the left cavernous sinus is displaced laterally but contents are T2 hyperintense and nonenhancing. Optic chiasm sags into the sella. Both prechiasmatic optic nerves appear atrophic and dysmorphic in contourr Resolving postoperative changes in the sphenoid sinus. No abnormal enhancement or mass in the internal auditory canals. Procedure Note Meseret Joseph MD - 11/20/2024 [facility] - Phone Outpatient NAME: Aimee Rodriguez DATE OF EXAM: 11/19/2024 Patient No: [id number] Physician: Angel Date of : 1960 Past Medical/Surgical History (entered by technologist): Symptoms/Reason For Exam (entered by technologist): pituitary Tech Notes (entered by technologist): gadobutrol (Gadavist) injection 10.3mL given IV; Dx: Benign neoplasm of right choroid. 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 He also hashypogonadism, secondary hypothyroid, and secondary adrenal insufficiency.Doing well, no trouble with lid lag... Additional History (per [facility]): Pituitary macroadenoma,apoplexy, status post resection EXAMINATION: MRI pituitary without and with intravenous contrast TECHNIQUE: High resolution multiplanar MR images were obtained throughthe sella turcica both before and after intravenous contrast. Gadavist 10.3 mL was administered intravenously Images were obtained on 3T MRI COMPARISON: Prior MRI sella 05-07-2024 FINDINGS: Hyperintensity in the dorsal sella is a combination of fat in the dorsumand T1 hyperintense posterior lobe. Sella turcica is enlarged. Infundibulum inserts on the left lateralnormal gland. In the right lateral sella there is nonenhancing T2 hyperintense softtissue from postoperative change. Lateral dural wall of the left cavernous sinus is displaced laterally butcontents are T2 hyperintense and nonenhancing. Optic chiasm sags into the sella. Both prechiasmatic optic nerves appearatrophic and dysmorphic in contourr Resolving postoperative changes in the sphenoid sinus. No abnormal enhancement or mass in the internal auditory canals. IMPRESSION: 1. Postoperative changes in the sella turcica with no imaging findings ofrecurrent adenoma 2. 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 This report has been electronically signed and verified by the Radiologistwhose name is printed above. This report contains privileged and confidential information and isintended solely for the use of the individual or entity to which it isaddressed. If you are not the intended recipient of this report, you arehereby notified that any copying, distribution, dissemination or actiontaken in relation to the contents of this report is strictly prohibitedand may be unlawful. If you have received this report in error, pleasenotify the sender immediately at [phone] and permanently delete theoriginal report and destroy any copies or printouts. us Wale Uriostegui MD [facility] [place] PROCEDURES Final Resu lt documented in this encounter Visit Diagnoses Diagnosis Benign neoplasm of right choroid documented in this encounter Administered Medications Inactive Administered Medications - up to 3 most recent administrations Medication Order MAR Action Action Date Dose Rate Site gadobutrol (Gadavist) injection 10.3 mL 10.3 mL (0.1 mL/kg 103 kg), Intravenous, Once in imaging, 1 dose, Starting on Fri11/19/24 at 1249, Until Fri11/19/24 at 1300, Routine, Imaging Protocol Orders Given 11/19/2024 1:00 PM EDT 10.3 mL documented in this encounter Additional Health Concerns Infection Onset Date Last Indicated Resolved Time 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
--- OUTSIDE RECORDS SUMMARY | 2024-11-19 14:30 | XMS_ITS | Encounter Summary ---
Author Organization [facility] Address [address] [place] [address] Care Team Providers Care Forestry Foreman Name Role Phone Michael Lopez MD Unavailable [phone] Rick Brandt MD Primary Care Provider [phone] Reason for Referral * Imaging (Routine) - Pending Review Specialty Diagnoses / Procedures Referred By Contac t Referred To Contact Radiology Diagnoses Benign neoplasm of right choroid Procedures MR Pituitary w and wo IV Contrast Wale Uriostegui MD [address] [address] Phone: tel: fax: Referral ID Status Reason Start Date Expiration Date V isits Requested Visits Authorized [id number] Pending Review 11/19/2024 05/21/2026 1 1 Encounter Details Date Type Department Care Team (Late st Contact Info) Description 11/19/2024 2:30 PM EDT Office Visit [place] [facility] [address], [address] [place] [address] Wale Uriostegui MD [address] [facility] [place] [address] Benign neoplasm of right choroid (Primary Dx) Social History Tobacco Use Types Packs/Day Years [...] drink first t shalom in the morning (EYE-TOOL CRIB CLERK) to steady your nerves or to get rid of a hangover? 0 07/19/2023 CAGE Questionnaire Score 0 024 Utilities Answer Date Recorded In the past 12 months has th e [employer], gas, oil, or water [employer] threatened to shut off services in your home? No 07/18/2023 Sex and Gender Information Value Date Recorded Sex Assigned at Not on file Legal Sex Male 6:55 PM EDT Gender Identity Not on file Sexual Orientation Not on file documented as of this encounter Last Filed Vital Signs Vital Sign Reading Time Taken Comments Blood Pressure 147/89 11/19/2024 2:29 PM EDT Pulse 70 11/19/2024 2:29 PM EDT Temperature - - Respiratory Rate - - Oxygen Saturation 98% 11/19/2024 2:29 PM EDT Inhaled Oxygen Concentration - - Weight 102 kg (225 lb 12 oz) 11/19/2024 2:29 PM EDT Height - - Body Mass Index 28.98 10/19/2024 9:43 AM EDT documented in this encounter Plan of Treatment Upcoming Encounters Date Type Department Care Team (Late st Contact Info) Description 03/23/2025 9:30 AM EST Office Visit [facility] Ot[facility] [address], [address] [place] [address] Alfredo Anderson MD [address] [facility] [address] [place] [address] 04/12/2025 9:00 AM EST Office Visit [facility] [address] [place] [phone] (1), Liborio Dyer Fellow 05/20/2025 1:45 PM EST Office Visit [facility] [address] [facility] [place] [address] Terrence Quinn MD [address] [place] [address] 11/25/2025 9:30 AM EDT Appointment [facility] [address] [place] [address] 11/25/2025 11:30 AM EDT Office Visit [place] [facility] [address], [address] [place] [address] Wale Uriostegui MD [address] [place] [address] Scheduled Orders Name Type Priority Associated Diagnoses Orde r Schedule MR Pituitary w and wo IV Contrast Imaging Routine Benign neoplasm of right choroid Expected: 11/19/2025 (Approximate), Expires: 05/23/2026 documented as of this encounter Visit Diagnoses Diagnosis Benign neoplasm of right choroid- Primary documented in this encounter Additional Health Concerns Infection Onset Date Last Indicated Resolved Time Kelly Auris Comment:Patient has alternative record with [employer] and Kelly auris was detected from surveillance swab 07/23/2023 07/23/2023 07/23/2023 Assessment Noted Time A fall risk assessment has been complete d for the patient 11/19/2024 2:34 PM EDT A Body Mass Index follow-up plan has been documented for the patient 10/19/2024 12:20 PM EDT documented as of this encounter Care Teams Forestry Foreman Relationship Specialty Start Date End Date Rick Brandt MD [address] [place] [address] PCP - General 09/21/24 Michael Lopez MD [address] [place] [address] 07/17/23 documented as of this encounter
--- OUTSIDE RECORDS SUMMARY | 2024-12-14 11:00 | XMS_ITS | Encounter Summary ---
Author Organization Healthcare Address [address] [place] [address] Care Team Providers Care High School Math Teacher Name Role Phone Michael Lopez MD Unavailable [phone] Rick Brandt MD Primary Care Provider [phone] Reason for Referral * Consultation (Routine) - Authorized Specialty Diagnoses / Procedures Referred By Contac t Referred To Contact Diagnoses Hypothyroidism, secondary Lib[facility]yer [facility] [address] [address] Phone: tel: fax: Referral ID Status Reason Start Date Expiration Date V isits Requested Visits Authorized [id number] Authorized 12/14/2024 06/15/2026 1 1 Reason for Visit * Reason Comments Hypogonadism in male Encounter Details Date Type Department Care Team (Late st Contact Info) Description 12/14/2024 11:00 AM EDT Office Visit [facility] Endocrinology [address] [place] [address] Liborio Dyer MD [address] [address] (1), Liborio Dyer Fellow Hypothyroidism, secondary (Primary Dx); Hypogonadism in male Social History Tobacco Use [...] place to sleep or slept in a retirement (including now)? No 07/18/2023 CAGE ASSESSMENT Answer [...] drink first t shalom in the morning (EYE-CENTRAL PROCESSING TECHNICIAN) to steady your nerves or to get rid of a hangover? 0 07/19/2023 CAGE Questionnaire Score 0 024 Utilities Answer Date Recorded In the past 12 months has th e [employer], gas, oil, or water [employer] threatened to shut off services in your home? No 07/18/2023 Sex and Gender Information Value Date Recorded Sex Assigned at Not on file Legal Sex Male 6:55 PM EDT Gender Identity Not on file Sexual Orientation Not on file documented as of this encounter Last Filed Vital Signs Vital Sign Reading Time Taken Comments Blood Pressure 157/92 12/14/2024 11:49 AM EDT Pulse 73 12/14/2024 11:49 AM EDT Temperature - - Respiratory Rate - - Oxygen Saturation - - Inhaled Oxygen Concentration - - Weight 103 kg (226 lb 3.1 oz) 12/14/2024 10:59 A M EDT Height 188 cm (6' 2 ) 12/14/2024 10:59 AM EDT Body Mass Index 29.04 12/14/2024 10:59 AM EDT documented in this encounter Miscellaneous Notes * Progress Notes - Vanessa Barrera MBBS - 12/14/2024 11:00 AM EDT Established Patient Visit [facility] Chief Complaint: History of Apoplexy and Pituitary Macroadenoma S/P TPR Central Hypothyroidism and Hypogonadism Subjective HPI 64 yo M w/PMHx hypothyroidism, HTN, with 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 He was last seen on 06/22/2024. He denies any new health concerns today. Fatigue and tiredness allthe time. He did not undergo sleep study since last visit. No headaches/vision changes. Pituitary Macroadenoma with Apoplexy s/p TPR -TPR 07/21/23 -Prior to surgery had diploplia and right CN III palsy, states resolved post-op without recurrence -He was seen in [facility] clinic on 11/19/24 with repeat MRI which showed no imaging findings of recurrentadenoma -Planning for repeat yearly now -Denies any change in vision and headaches. Apoplexy/Secondary Adrenal Insufficiency-Resolved -Cortisol low 2.5 07/21/23; ACTH 3.38 -Cosyntropin Stim Test on 08/11: 0= 7.90 30 = 20.90 60 = 22.80 ACTH 7.43 -Remains off Hydrocortisone now Central Hypothyroidism -TSH 0.23; FT4 0.5 07/21/23 -TSH 0.31; FT4 1.5 08/12/23 -TSH 1.63; FT4 0.6 12/16/23 Current medication-Levothyroxine 100 mcg daily -takes every day at night with cholesterol medicine. - compliance - good.no missed doses. Hypogonadotrophic Hypogonadism- -Not on testosterone for the past 2 months. He received refills until August and then he did not receive any refills. -does not see any difference being off the testosterone. -Testosterone total 95.2 and Free Testosterone 12.1 06/22/24 -LH 2.78; FSH 5.7 08/12/23 -GH 0.137; IGF-1: 122 -08/12/2023 -Prolactin 9.7-08/03/2023 -He denies prior W[place] or CVA -No history of blood clot -Denies prostate disease and PSA was normal Ros- All 14 negative except for as mentioned above. Visit Vitals BP (!) 160/101 (BP Location: Left arm, Patient Position: Sitting, BP Cuff Size: Small adult) Pulse 70 Ht 1.88 m (6' 2 ) Wt 103 kg (226 lb 3.1 oz) BMI 29.04 kg/m?? Smoking Status Former BSA 2.32 m?? Objective Physical Exam Constitutional: Appearance: Normal appearance. HENT: Head: Normocephalic and atraumatic. Right Ear: External ear normal. Left Ear: External ear normal. Nose: Nose normal. Mouth/Throat: Mouth: Mucous membranes are moist. Eyes: General: No scleral icterus. Cardiovascular: Rate and Rhythm: Normal rate and regular rhythm. Pulmonary: Effort: Pulmonary effort is normal. No respiratory distress. Breath sounds: Normal breath sounds. Skin: General: Skin is warm and dry. Neurological: Mental Status: He is alert and oriented to person, place, and time. Psychiatric: Mood and Affect: Mood normal. Thought Content: Thought content normal. MRI pituitary 11/19/2024 IMPRESSION: 1. Postoperative changes in the sella turcica with no imaging findings of recurrent adenoma 2. 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 Component Latest Ref [facility] 08/12/2023 Testosterone Total 264.0 - 916.0 ng/dL 77.4 (L) SHBG 11.2 - 78.1 nmol/L 41.0 Free Testosterone (pg/mL) 52.0 - 280.0 pg/mL 12.3 (L) Free Testosterone (%) 1.6 Albumin 3.5 - 5.0 g/dL 4.3 IGF 1 40 - 231 ng/mL 122 IGF 1 Z Score Calculation 0.2 TSH 0.40 - 4.20 uIU/mL 0.31 (L) Free T4 0.8 - 1.7 ng/dL 1.5 Prolactin 3.4 - 15.2 ng/mL 9.9 Human Growth Hormone 0.03 - 2.5 ng/mL 0.137 FSH, PEDIATRIC mIU/mL 5.7 LH 1.7 - 8.6 mIU/mL 2.78 Cortisol 7.90 ACTH 7.2 - 63 pg/mL 7.43 Cortisol,Time=30 20.90 Cortisol Time=60 22.80 Component Latest Ref [facility] 08/12/2023 Testosterone Total 264.0 - 916.0 ng/dL 77.4 (L) SHBG 11.2 - 78.1 nmol/L 41.0 Free Testosterone (pg/mL) 52.0 - 280.0 pg/mL 12.3 (L) Free Testosterone (%) 1.6 Albumin 3.5 - 5.0 g/dL 4.3 IGF 1 40 - 231 ng/mL 122 IGF 1 Z Score Calculation 0.2 TSH 0.40 - 4.20 uIU/mL 0.31 (L) Free T4 0.8 - 1.7 ng/dL 1.5 Prolactin 3.4 - 15.2 ng/mL 9.9 Human Growth Hormone 0.03 - 2.5 ng/mL 0.137 LH 1.7 - 8.6 mIU/mL 2.78 Cortisol 7.90 ACTH 7.2 - 63 pg/mL 7.43 Cortisol,Time=30 20.90 Cortisol Time=60 22.80 Component Latest Ref [facility] 08/12/2023 Glucose 74 - 99 mg/dL 101 (H) BUN 8 - 23 mg/dL 14 Creatinine 0.80 - 1.30 mg/dL 1.25 BUN/Creatinine Ratio 11 Sodium 136 - 145 mmol/L 142 Potassium 3.7 - 4.8 mmol/L 4.0 Chloride 97 - 107 mmol/L 105 CO2 22 - 29 mmol/L 25 Anion Gap 6 - 16 mmol/L 12 Calcium 8.9 - 10.2 mg/dL 9.4 EGFR mL/min/1.73m*2 63.9 Component Latest Ref [facility] 12/16/2023 WBC 3.70 - 10.30 10*3/uL 5.34 RBC 4.60 - 6.10 10*6/uL 5.13 Hemoglobin 13.7 - 17.5 g/dL 15.3 Hematocrit 40.0 - 51.0 % 49.3 Platelet Count 155 - 369 10*3/uL 222 MCV 79 - 98 fL 96 MCH 26.0 - 32.0 pg 29.8 MCHC 30.7 - 35.5 g/dL 31.0 RDW 11.5 - 14.5 % 12.7 MPV 8.8 - 12.5 fL 11.1 Cholesterol <200 mg/dL 206 (H) HDL >=40 mg/dL 42 Triglycerides <150 mg/dL 206 (H) Cholesterol/HDL Ratio 5 LDL Calculated <100 mg/dL 127 (H) Prostate Cancer Screen, Serum 0.00 - 4.50 ng/mL 0.85 Free T4 0.8 - 1.7 ng/dL 0.6 (L) TSH 0.40 - 4.20 uIU/mL 1.63 Component Latest Ref [facility] 12/16/2023 WBC 3.70 - 10.30 10*3/uL 5.34 RBC 4.60 - 6.10 10*6/uL 5.13 Hemoglobin 13.7 - 17.5 g/dL 15.3 Hematocrit 40.0 - 51.0 % 49.3 Platelet Count 155 - 369 10*3/uL 222 MCV 79 - 98 fL 96 MCH 26.0 - 32.0 pg 29.8 MCHC 30.7 - 35.5 g/dL 31.0 RDW 11.5 - 14.5 % 12.7 MPV 8.8 - 12.5 fL 11.1 Cholesterol <200 mg/dL 206 (H) HDL >=40 mg/dL 42 Triglycerides <150 mg/dL 206 (H) Cholesterol/HDL Ratio 5 LDL Calculated <100 mg/dL 127 (H) Testosterone Total 264.0 - 916.0 ng/dL 155.4 (L) SHBG 11.2 - 78.1 nmol/L 56.2 Free Testosterone (pg/mL) 52.0 - 280.0 pg/mL 19.9 (L) Free Testosterone (%) 1.3 Albumin 3.5 - 5.2 g/dL 4.7 PSA 0.00 - 4.50 ng/mL 0.85 Free T4 0.8 - 1.7 ng/dL 0.6 (L) TSH 0.40 - 4.20 uIU/mL 1.63 Assessment/Plan There are no diagnoses linked to this encounter. Pituitary Macroadenoma with Apoplexy s/p TPR -Diagnosed in 06/2023 with 2.1 cm macroadenoma and had CN III palsy -Underwent TPR and pathology was benign adenoma with necrosis -Denies diplopia and CN palsy has resolved -Repeat MRI completed 11/19/2024- no findings of recurrent adenoma. -He saw NS on 11/19/24 and reviewed note which is planning for repeat in 6 months PLAN: -Planning for repeat MRI in 1 year to assess for further changes -Treatment of subsequent hormonal deficiencies discussed below Secondary Adrenal Insufficiency-Resolved -Cortisol low 2.5 07/21/23; ACTH 3.38 -He was on Hydrocortisone but then had normal ACTH stimulation test and was discontinued -No signs or symptoms of AI at this time PLAN: -No need for further steroids at this time Central Hypothyroidism -TSH 0.23; FT4 0.5 07/21/23 -TSH 0.31; FT4 1.5 08/12/23 -TSH 1.63 and FT4 0.6 at last visit -Levothyroxine was increased from 50 to 75 mcg daily -He is taking it with Lipitor currently and misses dose occasionally PLAN: -Will check FT4 level today -TSH is not reliable in central hypothyroidism so no need to monitor this -Continue current dose of Levothyroxine and adjust if needed pending labs -Reviewed proper administration of Levothyroxine and if he misses a dose, he can double next day -Plan to adjust levothyroxine (Roxen) dose based on lab results. Hypogonadism -Testosterone total 77.4 and Free Testosterone 12.3 08/12/23 -LH 2.78; FSH 5.7, GH 0.137; IGF-1: 122 -Prolactin 9.9 -Endorses no symptoms today. -Denies sleep apnea but has not been formally tested PLAN: -Patient has been off testosterone for 3 months due to lack of refills. -Will send refill today. -Plan to recheck testosterone levels in 3 months to assess adequacy of replacement and guide further dosing adjustments. - will check CBC and PSA during that time. -Will need DXA in the future Hyperlipidemia -Lipid panel reviewed and notable for high TC, TG and LDL -Started on Lipitor 20 mg and no side effects PLAN: -Hold off on repeat FLP as he ate this AM -Can plan for fasting labs at next appointment Hypertension No prior diagnosis of hypertension, but blood pressures consistently elevated, repeat today 157/92. History of amlodipine use in the past, which was discontinued. -Resume amlodipine 5 mg daily. -Has upcoming PCP follow-up next week to reassess blood pressure response and determine long-term management. RTC in 3 months. Electronically signed by: RANDAL Sahu [facility] ENDOCRINOLOGY [address] [place] [address] [address] [place] [address] Cosigned by Liborio Dyer MD at 12/22/2024 8:58 AM EDT Associated attestation - Liborio Dyer MD - 12/22/2024 8:58 AM EDT I saw and evaluated the patient with the resident/fellow. I discussed the case with the resident/fellow and agree with the findings and plan as documented. documented in this encounter Plan of Treatment Upcoming Encounters Date Type Department Care Team (Late st Contact Info) Description 03/23/2025 9:30 AM EST Office Visit [facility] Otolaryngology [address]rd [place] [address] Alfredo Anderson MD [address] [place] [address] 04/12/2025 9:00 AM EST Office Visit [facility] Endocrinology [address] [place] [address] (1), Liborio Dyer Fellow 05/20/2025 1:45 PM EST Office Visit [facility] [address] [place] [facility] [place] [address] Terrence Quinn MD [address] [facility] [address] [place] [address] 11/25/2025 9:30 AM EDT Appointment [facility] [address] [place] [address] 11/25/2025 11:30 AM EDT Office Visit [facility] [address] [place] [address] Wale Uriostegui MD [address] [place] [address] Scheduled Referrals Name Type Priority Associated Diagnoses Orde r Schedule Follow Up [facility] Outpatient Referral Routine Hypothyroidism, secondary Expected: 03/15/2025, Expires: 06/17/2026 documented as of this encounter Results * T4, free (12/14/2024 12:04 PM EDT) Free T4, Plasma 1.0 0.8 - 1.7 ng/dL 12/14/2024 3:04 PM EDT [facility] Blood Venous blood specimen / Unknown Venipuncture / Unknown 12/14/2024 12:04 PM EDT 12/14/2024 12:04 PM EDT us Liborio Dyer MD LAB BLOOD ORDERABLES Final Res ult [facility] [address] [place] [address] documented in this encounter Visit Diagnoses Diagnosis Hypothyroidism, secondary- Primary Other specified acquired hypothyroidism Hypogonadism in male documented in this encounter Additional Health Concerns Infection Onset Date Last Indicated Resolved Time Kelly Auris Comment:Patient has alternative record with [employer] and Kelly auris was detected from surveillance swab 07/23/2023 07/23/2023 07/23/2023 Assessment Noted Time A fall risk assessment has been complete d for the patient 11/19/2024 2:34 PM EDT A Body Mass Index follow-up plan has been documented for the patient 12/16/2024 1:03 AM EDT documented as of this encounter Care Teams High [employer] Math Teacher Relationship Specialty Start Date End Date Rick Brandt MD [address] [place] [address] PCP - General 09/21/24 Michael Lopez MD [address] [place] [address] 07/17/23 documented as of this encounter
--- OUTSIDE RECORDS SUMMARY | 2024-12-14 12:10 | XMS_ITS | Encounter Summary ---
Author Organization Healthcare Address [address] [place] [address] Care Team Providers Care Porter Used Car Lot Name Role Phone Michael Lopez MD Unavailable [phone] Rick Brandt MD Primary Care Provider [phone] Encounter Details Date Type Department Care Team (Latest Contact Info) Description 12/14/2024 12:10 PM EDT Clinical Support [address] [phone] Hypothyroidism, secondary Social History Tobacco Use Types [...] place to sleep or slept in a senior living (including now)? No 07/18/2023 CAGE ASSESSMENT Answer [...] drink first t shalom in the morning (EYE-VASCULAR RADIOLOGIST) to steady your nerves or to get [...] Description 03/23/2025 9:30 AM EST Office [facility] [address], [address] [place] [address] Alfredo Anderson MD [address] [place] [address] 04/12/2025 9:00 AM EST Office Visit [facility] Endocrinology [address] [place] [address] (1), Liborio Dyer Fellow 05/20/2025 1:45 PM EST Office Visit [facility] [address] [place] [address] Terrence Quinn MD [address] [place] [address] 11/25/2025 9:30 AM EDT Appointment [facility] [address] [place] [phone] 11/25/2025 11:30 AM EDT Office [facility] [address], 1[address] [place] [address] Wale Uriostegui MD [address] [place] [address] documented as of this encounter Procedures Procedure Name Priority Date/Time Associated Diagnosis Comments FREE T4, PLASMA Routine 12/14/2024 12:04 PM EDT Hypothyroidism, secondary documented in this encounter Results * T4, free (12/14/2024 12:04 PM EDT) Free T4, Plasma 1.0 0.8 - 1.7 ng/dL 12/14/2024 3:04 PM EDT [facility] Blood Venous blood specimen / Unknown Venipuncture / Unknown 12/14/2024 12:04 PM EDT 12/14/2024 12:04 PM EDT us Liborio Dyer MD LAB BLOOD ORDERABLES Final Res ult [facility] [address] [place] [address] documented in this encounter Visit Diagnoses Diagnosis [...] documented as of this encounter Care Teams Porter Used Car Lot Relationship Specialty Start Date End Date Rick Brandt MD [address] [place] [address] PCP - General 09/21/24 Michael Lopez MD [address] [place] [address] 07/17/23 documented as of this encounter
--- OUTSIDE RECORDS SUMMARY | 2024-12-22 09:30 | XMS_ITS | Encounter Summary ---
Author Organization Healthcare Address [address] [place] [address] Care Team Providers Care Accountant Cost Name Role Phone Michael Lopez MD Unavailable [phone] Rick Brandt MD Primary Care Provider [phone] Reason for Visit * Reason Comments Follow-up Encounter Details Date Type Department Care Team (Late st Contact Info) Description 12/22/2024 9:30 AM EDT Office Visit [facility] Otol[facility]ology [address], [address] [place] [address] Alfredo Anderson MD [address] [place] [address] Apoplexy (CMS/HCC) (Primary Dx); Cranial neuropathy; Chronic rhinitis Social History Tobacco Use Types [...] place to sleep or slept in a care home (including now)? No 07/18/2023 CAGE ASSESSMENT [...] drink first t shalom in the morning (EYE-NUT TIGHTENER) to steady your nerves or to get [...] Sign Reading Time Taken Comments Blood Pressure 134/80 12/22/2024 9:46 AM EDT Pulse 80 12/22/2024 9:46 AM EDT Temperature - - Respiratory Rate - - Oxygen Saturation - - Inhaled Oxygen Concentration - - Weight 103 kg (226 lb 10.1 oz) 12/22/2024 9:46 A M EDT Height 188 cm (6' 2 ) 12/22/2024 9:46 AM EDT Body Mass Index 29.1 12/22/2024 9:46 AM EDT documented in this encounter Miscellaneous Notes * Progress Notes - Alfredo Anderson MD - 12/22/2024 9:[address] Uriostegui, I had the pleasure of evaluating your patient. My full evaluation is as follows. HPI: This is a 64 y.o. 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 He has done well since then. He is breathing well. He is rinsing, and he is getting crusts out regularly. He is not having significant drainage. He is not having salty or metallic tasting drainage. He saw Dr. Dubose for his tinnitus. Past Medical History: Reviewed Past Surgical History: [...] Ethmoid: Well healed. Left Sphenoid: Crusting present. Does not easily dislodge today. Some postobstructive secretions around it. Left Frontal: Undissected Right Inferior Turbinate: Healthy mucosa. No significant hypertrophy. Right Middle Turbinate: Medial position. Right Middle Meatus: Normal appearing. No edema, polyps, or purulent drainage. Right Maxillary: Undissected Right Ethmoid: Well healed. Right Sphenoid: Crusting present. Does not easily dislodge today. Some postobstructive secretions around it. Right Frontal: Undissected Nasopharynx: Bilateral eustachian tube [...] crusting in the sphenoid, and I was not able to debride much today. I have asked him to continue rinsing daily. I will see him back in 3-4 months. Thank you for involving me in the care of your patient. Please don't hesitate to contact me if you have any questions or concerns. Alfredo Anderson MD The patient has been counseled on tobacco cessation: Not Applicable documented in this encounter Plan of Treatment Upcoming Encounters Date Type Department Care Team (Late st Contact Info) Description 03/23/2025 9:30 AM EST Office Visit [facility] [address] [place] [address] Alfredo Anderson MD [address] [place] [address] 04/12/2025 9:00 AM EST Office Visit [facility] Endocrinology [address] [place] [address] (1), Liborio Dyer Fellow 05/20/2025 1:45 PM EST Office Visit [facility] [address] [place] [address] Terrence Quinn MD [address] [place] [address] 11/25/2025 9:30 AM EDT Appointment [facility] [address] [place] [address] 11/25/2025 11:30 AM EDT Office Visit [facility] [address] [place] [address] Wale Uriostegui MD [address] [facility] [address] [place] [address] documented as of this encounter Visit Diagnoses Diagnosis Apoplexy- Primary Acute, but ill-defined, cerebrovascular disease Cranial neuropathy Unspecified disorder of cranial nerves Chronic rhinitis documented in this encounter Additional [...] plan has been documented for the patient 12/22/2024 10:03 AM EDT documented as of this encounter Care Teams Accountant Cost Relationship Specialty Start Date End Date Rick Brandt MD [address] [place] [address] PCP - General 09/21/24 Michael Lopez MD [address] [place] [address] 07/17/23 documented as of this encounter
--- OUTSIDE RECORDS SUMMARY | 2024-12-29 14:34 | XMS_ITS | Clinical Summary ---
Author Organization Healthcare Address [address] [place] [address] Care Team Providers Care Trust Accounts Supervisor Name Role Phone Michael Lopez MD Unavailable [phone] Rick Brandt MD Primary Care Provider [phone] Allergies No known active allergies Medications * This document contains information received from the source organization and may not represent a complete record from that organization. oxyCODONE (Roxicodone) 5 MG immediate release tablet Take 1 tablet (5 mg) by mouth every 4 (four) hours if needed for severe pain. 30 tablet 07/26/19 24 Active Additional Information Patient not taking.Reported on 12/22/2024 atorvastatin (Lipitor) 20 MG tabletIndications: Hyperlipidemia, unspecified hyperlipidemia type Take 1 tablet (20 mg) by mouth 1 (one) time each day. 90 tablet 3 12/18/19 24 Active levothyroxine (Synthroid, Levoxyl) 100 MCG tabletIndications: Hypothyroidism, secondary Take 1 tablet by mouth daily. 30 tablet 11 06/30/19 25 026 Active Salicylic Acid (COMPOUND W EX) 10/30/19 25 Active amLODIPine (Norvasc) 5 MG tablet Take 1 tablet by mouth daily. 30 tablet 3 12/15/19 25 Active Testosterone 20.25 MG/ACT (1.62%) gelIndications:Hyp ogonadism in male Place 20.25 mg on the skin daily. Must have labs completed in September for further refills. 75 g 4 12/15/19 25 025 Active Testosterone 20.25 MG/ACT (1.62%) gelIndications:Hyp ogonadism in male Place 20.25 mg on the skin daily. Must have labs completed in September for further refills. 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 Follow Q4H specific gravities, Q6H serum Na, and QH I&O records Maintain sinus precautions Keep MIVF x24 hours PO fluids Berger catheter [id number] Rest of care per primary team Hydrocortisone [...] in near future 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06/30 Overview (07/23/2023): See apoplexy Altered mental status 07/20/20232023 Acute encephalopathy 07/17/2023 025 Overview (07/23/2023): Originally admitted 07/16 for suspected meninginitis Experienced KIRK, N/V, photophobia CSF w/ elevated WBC, protein Pancultures remain unremarkable Continues on Vancomycin, Meropenem per ID recommendations Encounters Date Type Department Care Team Description 12/22/2024 9:30 AM EDT Office Visit [facility] Otolaryngology [address] [place] [address] Alfredo Anderson MD Apoplexy (CMS/HCC) (Primary Dx); Cranial neuropathy; Chronic rhinitis 12/22/2024 Travel 12/15/2024 Results Follow-Up [facility] Endocrinology [address] [place] [address] Vanessa Barrera MBBS 12/14/2024 12:10 PM EDT Clinical Support [facility] [address] [place] [address] Hypothyroidism, secondary 12/14/2024 11:00 AM EDT Office Visit [facility] Endocrinology [address] [place] [address] Liborio Dyer MD (1), Liborio Dyer Fellow Hypothyroidism, secondary (Primary Dx); Hypogonadism in male 12/14/2024 Travel 11/19/2024 2:30 PM EDT Office Visit [facility] [address], 1st [place] [address] Wale Uriostegui MD Benign neoplasm of right choroid (Primary Dx) 11/19/2024 12:38 PM EDT - 11/19/2024 11:59 PM EDT Hospital Encounter [facility] [address], [address] [place] [address] Benign neoplasm of right choroid Discharge Disposition: Home or Self Care 11/19/2024 Travel 10/19/2024 10:00 AM EDT Consult [facility] Otolaryngology [address], [address] [place] [address] Stephen Dubose MD Sensorineural hearing loss (SNHL) of both ears (Primary Dx); Asymmetrical hearing loss; Tinnitus of both ears; Bilateral impacted cerumen 10/19/2024 9:30 AM EDT Office Visit [facility] Audiology [address], [address]rd [place] [address] Betariz Ly, Evaristo Asymmetrical sensorineural hearing loss (Primary Dx); Tinnitus, bilateral 10/19/2024 Travel 10/14/2024 Telephone [facility] Otolaryngology [address], [address] [place] [address] Esthela Emilyedwin Tomas from Last 3 Months Family History Medical [...] drink first t shalom in the morning (EYE-MICROSOFT BI CONSULTANT) to steady your nerves or to [...] Pulse 80 12/22/2024 9:46 AM EDT Temperature 36.5 C (97.7 F) 07/26/2023 12:00 PM EDT Respiratory Rate 18 10/31/2023 12:15 PM EDT Oxygen Saturation 98% 11/19/2024 2:29 PM EDT Inhaled Oxygen Concentration - - Weight 103 kg (226 lb 10.1 oz) 12/22/2024 9:46 A M EDT Height 188 cm (6' 2 ) 12/22/2024 9:46 AM EDT Body Mass Index 29.1 12/22/2024 9:46 AM EDT Plan of Treatment Upcoming Encounters Date Type Department Care Team (Late st Contact Info) Description 03/23/2025 9:30 AM EST Office Visit [facility] Otolaryngology [address], [address] [place] [address] Alfredo Anderson MD [address] [place] [address] 04/12/2025 9:00 AM EST Office Visit [facility] Endocrinology [address] [place] [address] (1), Liborio Dyer Fellow 05/20/2025 1:45 PM EST Office Visit [facility] [address] [facility] [place] [address] Terrence Quinn MD [address] [place] [address] 11/25/2025 9:30 AM EDT Appointment [facility] [address] [place] [address] 11/25/2025 11:30 AM EDT Office Visit [facility] [address], 1st [place] [address] Wale Uriostegui MD [address] [place] [address] Health Maintenance Due Date Last Done Comments [facility]-Depression Screening 1960 [facility]-Medicare Annual Wellness (AWV) 1960 [facility]-/Child/Adol SDOH Screenings 1960 [id number] Vaccine (#1) 1963 [facility]- SDOH Screenings 1976 [...] Screening Completed 07/17/2023 [facility]-Obesity Intervention Completed 025, 12/14/2024, 12/14/2024, Additional history exists HPV Vaccines Aged Out [...] this topic Medical Devices Implanted Type Area Kiln Firer Device Identifier Shelf Expiration Date Model / Serial / Lot Graft Dura Repair 2x2 [employer] - [id number] Implanted:Qty: 1 on 07/22/2023 by Wale Uriostegui MD at [id number] 10/28/2025 [id number] .025. [id number] / / [id number] Procedures Procedure Name Priority Date/Time Associated Diagnosis [...] - 1.7 ng/dL 12/14/2024 3:04 PM EDT [facility] Blood Venous blood specimen / Unknown Venipuncture / Unknown 12/14/2024 12:04 PM EDT 12/14/2024 12:04 PM EDT us Liborio Dyer MD LAB BLOOD ORDERABLES Final Res ult [facility] [address] [place] [address] * MR Pituitary w and wo IV [...] error, please notify the sender immediately at [phone] and permanently delete the original report and destroy any copies or printouts. Narrative 11/20/2024 11:08 PM EDT [facility] - Phone Outpatient NAME: Aimee oRdriguez DATE OF EXAM: 11/19/2024 Patient No: [id number] Physician: Moody^Wale Date of : 1960 Past Medical/Surgical History (entered by technologist): Symptoms/Reason For Exam (entered by technologist): pituitary Tech Notes (entered by technologist): gadobutrol (Gadavist) injection 10.3 mL given IV; Dx: Benign neoplasm of right choroid. 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 05/07/24: 63 yo male wpituitary macroadenoma with apoplexy undergoing transsphenoidal pituitaryresection July 19, 2023, with secondary adrenal insufficiency now offreplacement hydrocortisone follows [facility] Endocrinology,with a rt cranial nerve 3rd [...] in error, pleasenotify the sender immediately at [phone] and permanently delete theoriginal report and destroy any copies or printouts. us Wale Uriostegui MD IMG MRI PROCEDURES Final Resu lt * Hepatitis C Antibody - ED (07/17/2023 7:59 AM EDT) Hepatitis C Antibody Negative Negative 07/17/2023 9:17 AM EDT [facility] Blood Venous blood specimen / Unknown Venipuncture / Unknown 07/17/2023 7:59 AM EDT 07/17/2023 8:14 AM EDT us Maria Guadalupe Barth AUTOMOTIVE LOT ATTENDANT LAB BLOOD ORDERABLES Final Result [facility] [address] [place] [address] from Last 3 Months or Most Recently [...] Patient has decision-making capacity? Yes Care Teams Trust Accounts Supervisor Relationship Specialty Start Date End Date Rick Brandt MD [address] [place] [address] PCP - General 09/21/24 Michael Lopez MD [address] [place] [address] 07/17/23
--- OUTSIDE RECORDS SUMMARY | 2024-12-29 14:34 | XMS_ITS | Encounter Summary ---
Author Organization Healthcare Address [address] [place] [address] Care Team Providers Care Clinical Lab Clerk Name Role Phone Michael Lopez MD Unavailable [phone] Rick Bradnt MD Primary Care Provider Encounter Details Date Type Department Care Team (Latest Contact Info) Description 12/22/2024 Travel Social History Tobacco Use Types Packs/Day [...] drink first t shalom in the morning (EYE-DIE CUTTING MACHINE OPERATOR) to steady your nerves or [...] Description 03/23/2025 9:30 AM EST Office Visit [facility] Otol[facility]ology [address], 3rd [place] [address] Alfredo Anderson MD [address] [place] [address] 04/12/2025 9:00 AM EST Office Visit [facility] Endocrinology [address] [place] [address] (1), Liborio Dyer Fellow 05/20/2025 1:45 PM EST Office Visit [facility] [address] [place] [address] Terrence Quinn MD [address] [place] [address] 11/25/2025 9:30 AM EDT Appointment [facility] [address] [place] [address] 11/25/2025 11:30 AM EDT Office Visit [place] [facility] [address], [address] [place] [address] Wale Uriostegui MD [address] [place] [address] documented as of this encounter [...] Date End Date Rick Brandt MD [address] [place] [address] PCP - General 09/21/24 Michael Lopez MD [address] [place] [address] 07/17/23 documented as of this encounter
--- OUTSIDE RECORDS SUMMARY | 2024-12-29 14:34 | XMS_ITS | Encounter Summary ---
Author Organization Healthcare Address [address] [place] [address] Care Team Providers Care Senior Control Systems Engineer Name Role Phone Michael Lopez MD Unavailable [phone] Rick Brandt MD Primary Care Provider [phone] Encounter Details Date Type Department Care Team [...] place to sleep or slept in a residential (including now)? No 07/18/2023 CAGE ASSESSMENT Answer [...] drink first t shalom in the morning (EYE-WOOL PRESSER) to steady your nerves or to get [...] Description 03/23/2025 9:30 AM EST Office Visit [facility] Ot[facility]ology [address], 3rd [place] [address] Alfredo Anderson MD [address] [place] [address] 04/12/2025 9:00 AM EST Office Visit [facility] Endocrinology [address] [place] [address] (1), Liborio Dyer Fellow 05/20/2025 1:45 PM EST Office Visit [facility] [address] [place] [address] Terrence Quinn MD [address] [place] [address] 11/25/2025 9:30 AM EDT Appointment [facility] [address] [place] [address] 11/25/2025 11:30 AM EDT Office Visit [place] [facility] [address] [place] [address] Wale Uriostegui MD [address] [place] [address] documented as of this encounter [...] documented as of this encounter Care Teams Senior Control Systems Engineer Relationship Specialty Start Date End Date Rick Brandt MD [address] [place] [address] PCP - General 09/21/24 Michael Lopez MD [address] [place] [address] 07/17/23 documented as of this encounter
--- OUTSIDE RECORDS SUMMARY | 2024-12-29 14:34 | XMS_ITS | Encounter Summary ---
Author Organization Healthcare Address [address] [place] [address] Care Team Providers Care Painter Hand Name Role Phone Michael Lopez MD Unavailable [phone] Rick Brandt MD Primary Care Provider [phone] Encounter Details Date Type Department Care Team [...] first t shalom in the morning (EYE-HAND DRAWER IN HELPER) to steady your nerves or to [...] Description 03/23/2025 9:30 AM EST Office Visit [facility] Ot[facility]ology [address], 3rd [place] [address] Alfredo Anderson MD [address] [place] [address] 04/12/2025 9:00 AM EST Office Visit [facility] Endocrinology [address] [place] [address] (1), Liborio Dyer Fellow 05/20/2025 1:45 PM EST Office Visit [facility] [address] [place] [address] Terrence Quinn MD [address] [place] [address] 11/25/2025 9:30 AM EDT Appointment [facility] [address] [place] [address] 11/25/2025 11:30 AM EDT Office Visit [place] [facility] [address] [place] [address] Wale Uriostegui MD [address] [place] [address] documented as of this encounter [...] documented as of this encounter Care Teams Painter Hand Relationship Specialty Start Date End Date Rick Brandt MD [address] [place] [address] PCP - General 09/21/24 Michael Lopez MD [address] [place] [address] 07/17/23 documented as of this encounter
--- OUTSIDE RECORDS SUMMARY | 2024-12-29 14:35 | XMS_ITS | Clinical Summary ---
Author Organization [facility] Address [address] [place] [address], [address] [place] [address] Care Team Providers Care Pole Classifier Name Role Phone Unavailable Primary Care Provider [...]
--- OUTSIDE RECORDS SUMMARY | 2024-12-29 14:35 | XMS_ITS | Encounter Summary ---
Author Organization [facility] Address [address] [place] [address] Care Team Providers Care Press Setup Operator Name Role Phone Michael Lopez MD Primary Care Provider [phone] Pcp, No Primary Care Provider Unavailabl e Michael Lopez MD Unavailable [phone] Terrence Balderas DO Primary Care Provider [phone] Rick Brandt MD Primary Care Provider [phone] Reason for Referral * Consultation (Routine) - Closed Specialty Diagnoses / Procedures Referred By Contelina t Referred To Contact Neurosurgery Diagnoses Cervical nerve root impingement Cervical osteophyte Lumbar nerve root impingement Lumbar foraminal stenosis Michael Lopez MD [address] [place] [address] Phone: tel: fax: Referral ID Status Reason Start Date Expiration Date V isits Requested Visits Authorized [id number] Closed Specialty Services Required 11/02/2021 05/04/2023 1 1 Encounter Details Date Type Department Care Team (Late st Contact Info) Description 11/02/2021 [facility] [address] [place] [address] Michael Lopez MD [address] [place] [address] Cervical nerve root impingement (Primary Dx); [...] Description 03/23/2025 9:30 AM EST Office Visit [facility] Otolaryngology [address]rd [place] [address] Alfredo Anderson MD [address] [facility] [address] [place] [address] 04/12/2025 9:00 AM EST Office Visit [facility] Endocrinology [address] [place] [address] (1), Liborio Dyer Fellow 05/20/2025 1:45 PM EST Office Visit [facility] [address] [facility] [place] [address] Terrence Quinn MD [address] [place] [address] 11/25/2025 9:30 AM EDT Appointment [facility] [address] [place] [address] 11/25/2025 11:30 AM EDT Office Visit [place] [facility] [address]st [place] [address] Wale Uriostegui MD [address] [place] [address] Scheduled Referrals Name Type Priority [...] documented as of this encounter Care Teams Press Setup Operator Relationship Specialty Start Date End Date Michael Lopez MD [address] [place] [address] PCP - General 12/07/21 07/16/[address] [place] [address] PCP - General Family Medicine 07/17/23 10/30/23 Terrence Balderas DO [address] [place] [address] PCP - General 10/31/23 09/20/24 Rick Brandt MD [address] [place] [address] PCP - General 09/21/24 Michael Lopez MD [address] [place] [address] 07/17/23 documented as of this encounter
--- OUTSIDE RECORDS SUMMARY | 2024-12-29 14:35 | XMS_ITS | Encounter Summary ---
Author Organization Healthcare Address [address] [place] [address] Care Team Providers Care Occupational Therapy Aides Teacher Name Role Phone Pcp, No Primary Care Provider Unavailabl e Michael Lopez MD Unavailable [phone] Terrence Balderas DO Primary Care Provider [phone] Rick Brandt MD Primary Care Provider [phone] Encounter Details Date Type Department Care Team (Late st Contact Info) Description 07/21/2023 Ophth Exam [facility] [address] [place] [address] Ryan Romero MD [address] [place] [address] Social History Tobacco Use Types [...] drink first t shalom in the morning (EYE-RIVER AND HARBOR SOUNDINGS GROUP LEADER) to steady your nerves or to get [...] Description 03/23/2025 9:30 AM EST Office Visit [facility] Otolaryngology [address]rd [place] [address] Alfredo Anderson MD [address] [place] [address] 04/12/2025 9:00 AM EST Office Visit [facility] Endocrinology [address] [place] [address] (1), Liborio Dyer Fellow 05/20/2025 1:45 PM EST Office Visit [facility] [address] [facility] [place] [address] Terrence Quinn MD [address] [place] [address] 11/25/2025 9:30 AM EDT Appointment [facility] [address] [place] [address] 11/25/2025 11:30 AM EDT Office Visit [facility] [address] [place] [address] Wale Uriostegui MD [address] [facility] [address] [place] [address] documented as of this encounter Visit Diagnoses [...] documented as of this encounter Care Teams Occupational Therapy Aides Teacher Relationship Specialty Start Date End Date Pcp, No [address] [place] [address] PCP - General Family Medicine 07/17/23 10/30/23 Terrence Balderas DO [address] [place] [address] PCP - General 10/31/23 09/20/24 Rick Brandt MD [address] [place] [address] PCP - General 09/21/24 Michael Lopez MD [address] [place] [address] 07/17/23 documented as of this encounter
--- OUTSIDE RECORDS SUMMARY | 2024-12-29 14:35 | XMS_ITS | Encounter Summary ---
Author Organization Healthcare Address [address] [place] [address] Care Team Providers Care Graphic Art Sales Representative Name Role Phone Michael Lopez MD Unavailable [phone] Rick Brandt MD Primary Care Provider [phone] Encounter Details Date Type Department Care Team (Late st Contact Info) Description 12/15/2024 Results Follow-Up [facility] Endocrinology [address] [place] [address] Vanessa Barrera MBBS [address] [place] [address] Social History Tobacco Use Types [...] drink first t shalom in the morning (EYE-MILITARY SOURCE OPERATIONS OFFICER) to steady your nerves or to get rid of a hangover? 0 07/19/2023 CAGE Questionnaire Score 0 024 Utilities Answer Date Recorded In the past 12 months has th e [employer], gas, oil, or water company threatened to [...] 03/23/2025 9:30 AM EST Office Visit [facility] Otolaryngology [address] [place] [address] Alfredo Anderson MD [address] [place] [address] 04/12/2025 9:00 AM EST Office Visit [facility] Endocrinology [address] [place] [address] (1), Liborio Dyer Fellow 05/20/2025 1:45 PM EST Office Visit [facility] [address] [place] [address] Terrence Quinn MD [address] [facility] [address] [place] [address] 11/25/2025 9:30 AM EDT Appointment [facility] [address] [place] [address] 11/25/2025 11:30 AM EDT Office Visit [facility] [address] [place] [address] Wale Uriostegui MD [address] [place] [address] documented as of this encounter [...] documented as of this encounter Care Teams Graphic Art Sales Representative Relationship Specialty Start Date End Date Rick Brandt MD [address] [place] [address] PCP - General 09/21/24 Michael Lopez MD [address] [place] [address] 07/17/23 documented as of this encounter
--- OUTSIDE RECORDS SUMMARY | 2024-12-29 14:35 | XMS_ITS | Encounter Summary ---
Author Organization Healthcare Address [address] [place] [address] Care Team Providers Care Paralegal Legal Secretary Name Role Phone Pcp, No Primary Care Provider Unavailabl e Michael Lopez MD Unavailable [phone] Terrence Balderas DO Primary Care Provider [phone] Rick Brandt MD Primary Care Provider [phone] Encounter Details Date Type Department Care Team (Late st Contact Info) Description 07/23/2023 Lab Requisition [facility] [address] [place] [address] Lorenzo Simpson MD [address] [facility] [address] [place] [address] Encounter for general adult medical [...] drink first t shalom in the morning (EYE-VENEER CLIPPER HELPER) to steady your nerves or to [...] Description 03/23/2025 9:30 AM EST Office Visit [facility] Otolaryngology [address] [place] [address] Alfredo Anderson MD [address] [place] [address] 04/12/2025 9:00 AM EST Office Visit [facility] Endocrinology [address] [place] [id number] (1), Liborio Dyer Fellow 05/20/2025 1:45 PM EST Office Visit [facility] [address] [place] [address] Terrence Quinn MD [address] [place] [address] 11/25/2025 9:30 AM EDT Appointment [facility] [address] [place] [address] 11/25/2025 11:30 AM EDT Office Visit [facility] [address] [place] [address] Wale Uriostegui MD [address] [place] [address] documented as of this encounter [...] bee n identified using the FDA Approved InTouch Technologyyper CA System Swab (Axilla and Groin) 07/23/2023 9:00 AM EDT 07/23/2023 9:39 AM EDT Lorenzo Simpson MD LAB MICROBIOLOGY - GEN ERAL ORDERABLES Final Result [facility] [address] [place] [address] * (ABNORMAL) Kelly auris Surveillance by PCR (07/23/2023 9:00 AM EDT) Kelly auris PCR Result Detected( A) Not Detected 07/24/2023 9:37 AM EDT [facility] Swab (Axilla and Groin) 07/23/2023 9:00 AM EDT 07/23/2023 9:39 AM EDT Narrative [facility] - 07/24/2023 9:37 AM EDT This PCR assay was developed and its performance characteristics determined by [facility] as appropriate for clinical purposes. This assay has not been cleared or approved by the FDA, but is performed in a CLIA regulated laboratory that is qualified to perform high-complexity testing. us Lorenzo Simpson MD LAB MICROBIOLOGY - GEN ERAL ORDERABLES Final Result [facility] [address] [place] [address] documented in this encounter Visit Diagnoses Diagnosis [...] documented as of this encounter Care Teams Paralegal Legal Secretary Relationship Specialty Start Date End Date Pcp, No [address] [place] [address] PCP - General Family Medicine 07/17/23 10/30/23 Terrence Balderas DO [address] [place] [address] PCP - General 10/31/23 09/20/24 Rick Brandt MD [address] [place] [address] PCP - General 09/21/24 iMchael Lopez MD [address] [place], [place] [id number] 07/17/23 documented as of this encounter
--- OUTSIDE RECORDS SUMMARY | 2024-12-29 14:35 | XMS_ITS | Clinical Summary ---
Author Organization [facility] ystem Address [address] [place] [address] Care Team Providers Care Form Carpenter Name Role Phone Unavailable Primary Care Provider [...] of 2) 2008 AAA SCREEN ONCE 2023 INFLUENZA VACCINE 10/29/2024 COVID-19 Vaccine ( - 2023- season) 2024
--- NOTE | 2024-12-29 15:15 | MR_ITS ---
FINAL REPORT CLINICAL HISTORY: L shoulder pain limited rom nki weakness in arm COMPARISON: None FINDINGS: Multi planar MR imaging of the left shoulder was performed. Heterogeneous abnormal signal of the distal supraspinatus tendon is consistent with tendinosis. There is also linear signal in the distal supraspinatus tendon probably due to partial intrasubstance tear, well-seen on image 15 of series 5. There is no significant fluid in the subacromial/subdeltoid bursa. The anterior and posterior glenoid magdy appear intact. Subscapularis tendon intact. The biceps tendon appears intact. Moderate hypertrophic changes of the acromioclavicular joint. There are degenerative cysts in the greater tuberosity measuring up to 7 mm. IMPRESSION: Supraspinatus tendinosis with partial intrasubstance tear. Moderate hypertrophic changes AC joint. Degenerative cyst formation greater tuberosity. Reviewed, Interpreted and Dictated by Hernan El MD Transcribed by Manasa Pettit Authenticated and [facility]
== END 2024-12-29 23:59 | disposition home or self-care (01) ==
LOC: RAD 14:32
PROVIDERS: PCP Family Medicine; Visit Provider Nurse Practitioner Family
DX: M75.82 Other shoulder lesions, left shoulder (principal); M75.112 Incomplete rotator cuff tear or rupture of left shoulder, not specified as traumatic; M19.012 Primary osteoarthritis, left shoulder; M85.622 Other cyst of bone, left upper arm
CPT/HCPCS: 73221

== ENCOUNTER 2025-01-25 11:05 | Day surgery (SDC) | payer MEDICARE, MEDICAID, SELFPAY ==
[2025-01-25 11:13] VITALS: BP 127/85; PULSE 90; RESP 16; O2SAT 94; BMI 28.8
[2025-01-25] MEDS: BUPIVACAINE 0.25% 10ML INJ 25 MG IJ (11:41)
[2025-01-25] MEDS: LIDOCAINE 1% 5ML PF VIAL 5 ML (11:42)
[2025-01-25] MEDS: DEXAMETHASONE 10MG/ML 1ML VIAL 10 MG (11:42)
[2025-01-25 11:43] VITALS: BP 141/83; PULSE 87; RESP 18; O2SAT 96
--- NOTE | 2025-01-25 11:47 | EXP.PAIN.PRO ---
Procedure Date: 01/25/25 Time: 11:40 Anesthesiologist:: Rupesh Downs CRNA Complications:: None Pre-procedure Diagnosis:: DJD bilateral shoulder. Chronic bilateral shoulder pain. Post-procedure Diagnosis:: Same. Indications for Procedure:: Patient is a very pleasant 64-year-old male who comes to our clinic today for bilateral intra-articular shoulder injections cortisone local anesthetic. Patient describes bilateral shoulder pain as constant, dull, aching. Patient has 5/5 strength in the bilateral arms. However, limited range of motion secondary to bilateral shoulder pain. Patient rates his pain 7/10. Procedure Details:: Procedure Details: Left shoulder intra-articular injection Informed consent was obtained risk and benefits of the procedure were explained to the patient. Patient was taken to the procedure room. The Left shoulder was prepped using ChloraPrep. A 25-gauge needle was used posteriorly to inject 10 mL bupivacaine 0.25% and 10 mg of dexamethasone. Patient tolerated procedure well with no complications. Procedure Details: Right shoulder intra-articular injection Informed consent was obtained risk and benefits of the procedure were explained to the patient. Patient was taken to the procedure room. The right shoulder was prepped using ChloraPrep. A 25-gauge needle was used posteriorly to inject 10 mL bupivacaine 0.25% and 10 mg of dexamethasone. Patient tolerated procedure well with no complications. Plan and Disposition:: Patient was discharged without incident.
[2025-01-25 11:48] VITALS: BP 124/87; PULSE 87; RESP 16; O2SAT 95
== END 2025-01-25 11:48 | disposition home or self-care (01) ==
PROVIDERS: PCP Family Medicine; Visit Provider Nurse Anesthetist, Certified Registered
DX: M19.011 Primary osteoarthritis, right shoulder (principal); M19.012 Primary osteoarthritis, left shoulder; G89.29 Other chronic pain; E78.5 Hyperlipidemia, unspecified; E03.9 Hypothyroidism, unspecified; Z79.890 Hormone replacement therapy; Z79.891 Long term (current) use of opiate analgesic; Z79.899 Other long term (current) drug therapy
CPT/HCPCS: 20610; J0665; J1100; J2003